=== PATIENT | female | born 1985 | race Caucasian/White ===

== ENCOUNTER 2017-08-03 22:12 | Emergency (ER) | payer SELFPAY ==
--- NOTE | 2017-08-03 23:29 | ER Document Report ---
ED General - General Chief Complaint: Psych Problem Stated Complaint: POSSIBLE SUBSTANCE ABUSE Time Seen by Provider: 08/03/17 22:30 Mode of Arrival: Ambulatory Information source: Patient Notes: This is a 31-year-old female with a history of opiate dependency and seizures ( on Keppra) who is brought in by EMS. Patient's mother called the police to the house because she "cannot handle her anymore". The patient does have a history of opiate dependency and states she was drinking alcohol. The police at the scene and called EMS and the patient had agreed to come to the ER for evaluation on a voluntary basis. In the emergency room, the patient is alert and answering questions. There is some alcohol on her breath. She absolutely denies any suicidal or homicidal ideations. She states that her mother's been sick and has a difficult time dealing with her and that she does have friends that she can stay with. But she states she has had no thoughts of wanting to hurt himself or anyone else. TRAVEL OUTSIDE OF THE [place] IN LAST 30 DAYS: No - HPI Onset: Just prior to arrival Onset/Duration: Sudden Quality of pain: No pain Severity: None Pain Level: Denies Associated symptoms: None Exacerbated by: Denies Relieved by: Denies Similar symptoms previously: No Recently seen / treated by doctor: No - Related Data Allergies/Adverse Reactions: Sulfa (Sulfonamide Antibiotics) Allergy (Verified 07/13/15 19:29) tramadol [Tramadol] Allergy (Verified 07/13/15 19:29) Seizures Past Medical History - General Information source: Patient - Social History Smoking Status: Current Every Day Smoker Cigarette use (# per day): Yes - 1 pack per day Chew tobacco use (# tins/day): No Frequency of alcohol use: Social Drug Abuse: Prescription drugs Lives with: Other - Does have a friend to live with Family History: Reviewed & Not Pertinent Patient has suicidal ideation: No Patient has homicidal ideation: No - Past Medical History Cardiac Medical History: Reports: None Pulmonary Medical History: Reports: None Neurological Medical History: Reports: Hx Seizures - But not epilepsy, only associated with withdrawal. Endocrine Medical History: Reports: None Renal/ Medical History: Reports: None Malignancy Medical History: Reports: None GI Medical History: Reports: None Musculoskeltal Medical History: Reports None Skin Medical History: Reports None Psychiatric Medical History: Reports: Hx Anxiety, Hx Attention Deficit Hyperactivity Disorder, Hx Bipolar Disorder, Hx Depression Past Surgical History: Reports: Hx Abdominal Surgery, Hx Orthopedic Surgery - Immunizations Hx Diphtheria, Pertussis, Tetanus Vaccination: No Review of Systems - Review of Systems Constitutional: denies: Chills, Fever EENT: No symptoms reported Cardiovascular: No symptoms reported Respiratory: No symptoms reported Gastrointestinal: No symptoms reported Genitourinary: No symptoms reported Female Genitourinary: No symptoms reported Musculoskeletal: No symptoms reported Skin: No symptoms reported Hematologic/Lymphatic: No symptoms reported Neurological/Psychological: See HPI Physical Exam - Vital signs Vitals: Temp Pulse Resp BP Pulse Ox 97.8 F 115 H 18 107/68 96 08/03/17 22:31 08/03/17 22:31 08/03/17 22:31 08/03/17 22:08/03/17 22:31 Notes: Physical exam: GENERAL: 31-year-old female, alert and oriented 3, no acute distress HEAD: Atraumatic, normocephalic. EYES: Pupils equal round and reactive to light, extraocular movements intact, sclera anicteric, conjunctiva are normal. ENT: TMs normal, nares patent, oropharynx clear without exudates. Moist mucous membranes. NECK: Normal range of motion, supple without obvious mass or JVD. LUNGS: Breath sounds clear to auscultation bilaterally and equal. No wheezes rales or rhonchi. HEART: Regular rate and rhythm without murmurs, rubs or gallops. ABDOMEN: Soft, normoactive bowel sounds. No tenderness to palpation. No guarding, no rebound. No masses appreciated. EXTREMITIES: Normal range of motion, no pitting or edema. No clubbing or cyanosis. NEUROLOGICAL: Cranial nerves II through XII grossly intact. Normal speech, moving all extremities. PSYCH: Denies homicidal or suicidal ideations. SKIN: Warm, Dry, normal turgor, no rashes or lesions noted. Course - Re-evaluation Re-evalutation: I have had a long discussion with the patient. She does not want to see a psychiatrist. She denies any homicidal suicidal ideations. She is alert and oriented 3 and has no delusions or hallucinations. The patient was brought in on a voluntary basis and there is no support for an involuntary commitment at this time. I have explained this to the patient. However, she does have alcohol on her breath and states that she took 1 Percocet, so I told her I could not let her leave her alone under the influence. Patient states she will have a friend pick her up. The nurse did speak to the mother who wanted the patient admitted to a psychiatric facility because "she can handle the patient anymore". It was explained to her that we do not have legal means to hold her against her will. 08/03/17 23:26 - Vital Signs Vital signs: Temp Pulse Resp BP Pulse Ox 97.8 F 115 H 18 107/68 96 08/03/17 22:31 08/03/17 22:31 08/03/17 22:31 08/03/17 22:31 08/03/17 22:31 Discharge - Discharge Clinical Impression: Mood disorder NOS Condition: Stable Disposition: HOME, SELF-CARE Additional Instructions: Thank you for choosing [facility] for your care. The examination and treatment you have received in the Emergency Department today has been rendered on an emergency basis only and is not intended to be a substitute for complete medical care. You should contact your follow-up physician as it is important that he or she examine you for any new or remaining problems. If given a copy of any lab tests or radiology reports, please bring them with you when you see your physician. If your problem worsens or new symptoms appear and you are unable to arrange prompt follow-up care, return to the Emergency Department. Specific signs to look out for: Any thoughts of wanting to hurt yourself or others, return to the ER. Any other instructions: Follow-up with your doctor. Continue the Keppra.
[2017-08-03 23:36] VITALS: BP 95/60
== END 2017-08-03 23:34 | disposition home or self-care (01) ==
LOC: EEVIPCON 22:12 → ER 22:12
DX: F39 Unspecified mood [affective] disorder (principal); Z79.899 Other long term (current) drug therapy; F10.20 Alcohol dependence, uncomplicated; F11.20 Opioid dependence, uncomplicated; F17.210 Nicotine dependence, cigarettes, uncomplicated
CPT/HCPCS: 99284

== ENCOUNTER 2017-08-05 20:10 | Emergency (ER) | payer SELFPAY ==
[2017-08-05 20:17] VITALS: BP 111/65
[2017-08-05] MEDS ORDERED: LIDOCAINE 2% VISCOUS SOLN 20 ML UDCUP PO ONE (20:28)
[2017-08-05] MEDS ORDERED: PENICILLIN V POTASSIUM 500 MG TABLET PO ONE (20:39)
[2017-08-05] MEDS ORDERED: ACETAMINOPHEN 325 MG TABLET PO ONE (20:39)
--- NOTE | 2017-08-05 20:45 | ER Document Report ---
ED Oral Problem - General Chief Complaint: Toothache Stated Complaint: TOOTHACHE Time Seen by Provider: 08/05/17 20:27 Mode of Arrival: Ambulatory Information source: Patient Notes: 31-year-old female presents to ED for complaint of dental pain 3 weeks. She is states she feels like there is an abscess on her right upper gums between teeth 5 and 6. TRAVEL OUTSIDE OF THE [place] IN LAST 30 DAYS: No - HPI Patient complains to provider of: Toothache Onset: Other - 3 Weeks Onset: Gradual Quality of pain: Pressure, Sharp Severity: Severe Pain Level: 5 Associated symptoms: Toothache, Other - Thumb pain Worsened by: Cold Relieved by: Nothing Similar symptoms previously: Yes Recently seen / treated by doctor/dentist: No - Related Data Allergies/Adverse Reactions: Sulfa (Sulfonamide Antibiotics) Allergy (Verified 07/13/15 19:29) tramadol [Tramadol] Allergy (Verified 07/13/15 19:29) Seizures Past Medical History - General Information source: Patient - Social History Smoking Status: Current Every Day Smoker Cigarette use (# per day): Yes - pack per day Chew tobacco use (# tins/day): No Smoking Education Provided: Yes - Less than 2 minutes Frequency of alcohol use: Occasional Drug Abuse: Prescription drugs - None in several weeks she states she is in a drug rehab program now Lives with: Family Family History: Arthritis, CAD, COPD, CVA, DM, Hyperlipidemia, Hypertension. denies: Malignancy, Thyroid Disfunction Patient has suicidal ideation: No Patient has homicidal ideation: No - Past Medical History Cardiac Medical History: Reports: None Pulmonary Medical History: Reports: None EENT Medical History: Reports: None Neurological Medical History: Reports: Hx Seizures - But not epilepsy, only associated with withdrawal. Endocrine Medical History: Reports: None Renal/ Medical History: Reports: None Malignancy Medical History: Reports: None GI Medical History: Reports: None Musculoskeltal Medical History: Reports None Skin Medical History: Reports None Psychiatric Medical History: Reports: Hx Anxiety, Hx Attention Deficit Hyperactivity Disorder, Hx Bipolar Disorder, Hx Depression, Other - Bulimia Traumatic Medical History: Reports: None Infectious Medical History: Reports: None Surgical Hx: Negative Past Surgical History: Reports: None - Immunizations Immunizations up to date: No Hx Diphtheria, Pertussis, Tetanus Vaccination: No Review of Systems - Review of Systems Constitutional: No symptoms reported EENT: No symptoms reported Cardiovascular: No symptoms reported Respiratory: No symptoms reported Gastrointestinal: No symptoms reported Genitourinary: No symptoms reported Female Genitourinary: No symptoms reported Musculoskeletal: No symptoms reported Skin: No symptoms reported Hematologic/Lymphatic: No symptoms reported Neurological/Psychological: No symptoms reported -: Yes All other systems reviewed and negative Physical Exam - Vital signs Vitals: Temp Pulse Resp BP Pulse Ox 98.6 F 103 H 18 111/65 100 08/05/17 20:08/05/17 20:08/05/17 20:14 08/05/17 20:08/05/17 20:14 Interpretation: Normal - General General appearance: Appears well, Alert - HEENT Head: Normocephalic, Atraumatic Eyes: Normal Pupils: PERRL Ears: Normal External canal: Normal Tympanic membrane: Normal Sinus: Normal Nasal: Normal Mouth/Lips: Caries Mucous membranes: Normal Teeth diagram: 1 - Most of the teeth are rotten and broken off. Has multiple dental cavities. States she has had chronic pain for a long time. Has a small red sore area between tooth 5 and 6. Pharynx: Normal Neck: Normal - Respiratory Respiratory status: No respiratory distress Chest status: Nontender Breath sounds: Normal Chest palpation: Normal - Cardiovascular Rhythm: Regular Heart sounds: Normal auscultation Murmur: No - Abdominal Inspection: Normal Distension: No distension Bowel sounds: Normal Tenderness: Nontender Organomegaly: No organomegaly - Back Back: Normal, Nontender - Extremities General upper extremity: Normal inspection, Nontender, Normal color, Normal ROM , Normal temperature General lower extremity: Normal inspection, Nontender, Normal color, Normal ROM , Normal temperature, Normal weight bearing. No: Danilo's sign - Neurological Neuro grossly intact: Yes Cognition: Normal Orientation: AAOx4 [place] Coma Scale Eye Opening: Spontaneous [place] Coma Scale Verbal: Oriented Justin Coma Scale Motor: Obeys Commands Justin Coma Scale Total: 15 Speech: Normal Motor strength normal: LUE, RUE, LLE, RLE Sensory: Normal - Psychological Associated symptoms: Normal affect, Normal mood - Skin Skin Temperature: Warm Skin Moisture: Dry Skin Color: Normal Course - Re-evaluation Re-evalutation: 08/05/17 21:09 Patient's mother requested a copy of the mental health resources as well as dentist in the area that she could try to get patient in to see as she does not have insurance. A copy of the mental health resources was provided to the mother. On her discharge instructions I gave her a list of the local dentist and they keep her dentist in the area. Patient was treated with Pen-Vee K Tylenol and viscous lidocaine for her dental pain. She was also instructed to follow-up with a local dentist as this was only a temporary measure. - Vital Signs Vital signs: Temp Pulse Resp BP Pulse Ox 98.6 F 103 H 18 111/65 100 08/05/17 20:14 08/05/17 20:14 08/05/17 20:14 08/05/17 20:14 08/05/17 20:14 Discharge - Discharge Clinical Impression: Pain due to dental caries Condition: Stable Disposition: HOME, SELF-CARE Additional Instructions: TOOTHACHE: Your pain is due to dental decay. The tooth must be repaired in order for you to feel better. You will, therefore, be referred to a dentist. We do not have dentists on the staff at [facility]. Severe swelling or drainage around a tooth usually means a dental abscess. This also requires evaluation and treatment by the dentist, but antibiotics may be prescribed while awaiting dental treatment. You should be rechecked immediately if you develop major swelling of the face, increasing pain, a lump in the jaw or gums, headache, difficulty swallowing, or fever. PENICILLIN V K: You have been given a prescription for Penicillin VK. Your physician has determined that this is the best antibiotic for your condition. Pen VK can be taken with meals, however more of the antibiotic gets into the bloodstream if it's taken on an empty stomach. Penicillin usually has no side effects. However, allergy to penicillins is common. If you have had an allergic reaction to any drug of the penicillin family, you should never take any other penicillin. Notify your doctor at once if you develop hives, itching, swelling, faintness, or shortness of breath. FOLLOW-UP CARE: You have been referred for follow-up care to the dentists listed below. Call the dentists office for an appointment as you were instructed or within the next two days. If you experience worsening or a significant change in your symptoms, notify the physician immediately or return to the Emergency Department at any time for re-evaluation. [facility] [address] [place], [place] Fred mornings, by appointment [facility] [address] [place] [address] [facility] [address] [facility] [address] [facility] [address] [facility] [place] [facility] [address] [email or web address] [address] [place] [address] ([phone] Thursday- 8:00am to 5:00 pm Will see patients from other [facility]. Charges based on income and family size and accepts Medicare, Medicaid, and Insurances Will pull molars [facility]ics [facility] [place] [address] Hours of Operation 8:00 am - 4:30 pm weekdays The following dental offices accept Medicaid: [facility] Dr. Lora Dr. Lewis Dr. Tran Dr. Montaño Jovan Lyons [place], and [facility] Dr. Licea ([place]) Dr. Centeno ([place]) [facility] Drs. Bess and Kane ([place]) Dr. Fisher ([place]) [facility] Dr. Fall ([place]) Drs. Michael and ([place]) Medicaid Care Line Prescriptions: Penicillin V Potassium [Penicillin Vk 500 mg Tablet] 500 mg PO BID #20 tablet Forms: Smoking Cessation Education
== END 2017-08-05 21:19 | disposition home or self-care (01) ==
LOC: ER 20:10
DX: K02.9 Dental caries, unspecified (principal); K08.89 Other specified disorders of teeth and supporting structures; G89.29 Other chronic pain; F17.210 Nicotine dependence, cigarettes, uncomplicated; Z71.6 Tobacco abuse counseling; Z88.2 Allergy status to sulfonamides; Z88.5 Allergy status to narcotic agent
CPT/HCPCS: 99282; J3490

== ENCOUNTER 2018-02-01 00:06 | Emergency (ER) | payer SELFPAY ==
[2018-02-01] MEDS ORDERED: NORMAL SALINE 1000 ML 1,000 ML IV ONE ×4 (00:15→11:16)
--- NOTE | 2018-02-01 01:02 | ER Document Report ---
ED General - General TRAVEL OUTSIDE OF THE [place].S[place] IN LAST 30 DAYS: No <RAPHAEL QUEEN - Last Filed: 02/01/18 05:01> <CURTIS HERRERA - Last Filed: 02/01/18 15:35> - General Chief Complaint: Probable Seizure Stated Complaint: POSSIBLE SEIZURE Time Seen by Provider: 02/01/18 00:10 Notes: Patient is a 32-year-old female who presents with complaint of possible seizure. Most history is obtained from the paramedics. Patient is awake and alert but she will not answer most my questions. When asked if she had any alcohol today she said yes. When asked if she took her Keppra she said yes. I asked her if she took any other drugs she refused to answer me. After asked a question she refused to answer any further questions. On exam when I asked her open her mouth she really clenches her teeth together and will refuses to open her mouth. When I asked her to open her eyes she closes her eyes and tries to hold together. The paramedics said that she recently had a pleural hearing where they decided to place her in a prole as opposed to serving a sentence. Patient's mother told paramedics that she was upset with this and does want to serve her time and not do parole. She was told that if she had a more instances with drugs or alcohol that she would feel pleural and therefore before [facility] time which apparently is what the patient wanted. The mother told paramedics that she suspects that she probably drank alcohol into drugs tonight which led her to have a seizure. No further history is obtainable at this time due to patient refusing to call cooperate and answer questions. (RAPHAEL QUEEN) Patient was reevaluated multiple times given IV fluid total of 3000 cc, alcohol levels gradually came down. She usually run a very low blood pressure without any symptoms she was ambulatory without any discomfort or complaint. Subsequently she was discharged home. (CURTIS HERRERA) - Related Data Allergies/Adverse Reactions: Sulfa (Sulfonamide Antibiotics) Allergy (Verified 07/13/15 19:29) tramadol [Tramadol] Allergy (Verified 07/13/15 19:29) Seizures Past Medical History - Social History Smoking Status: Unknown if Ever Smoked Frequency of alcohol use: Occasional Drug Abuse: Other - unknown Family History: Arthritis, CAD, COPD, CVA, DM, Hyperlipidemia, Hypertension. denies: Malignancy, Thyroid Disfunction Neurological Medical History: Reports: Hx Seizures - But not epilepsy, only associated with withdrawal. Renal/ Medical History: Denies: Hx Peritoneal Dialysis Psychiatric Medical History: Reports: Hx Anxiety, Hx Attention Deficit Hyperactivity Disorder, Hx Bipolar Disorder, Hx Depression Past Surgical History: Reports: Hx Abdominal Surgery, Hx Orthopedic Surgery - Immunizations Immunizations up to date: No Hx Diphtheria, Pertussis, Tetanus Vaccination: No <RAPHAEL QUEEN - Last Filed: 02/01/18 05:01> Review of Systems - Review of Systems -: Yes ROS unobtainable due to patient's medical condition - Patient is uncooperative <RAPHAEL QUEEN - Last Filed: 02/01/18 05:01> Physical Exam <RAPHAEL QUEEN - Last Filed: 02/01/18 05:01> <CURTIS HERRERA - Last Filed: 02/01/18 15:35> - Vital signs Vitals: Pulse Ox 100 02/01/18 00:13 - Notes Notes: General Appearance: Well nourished, somnolent but alert, uncooperative, no acute distress, no obvious discomfort. Vitals: reviewed, See vital signs table. Head: no swelling or tenderness to the head Eyes: PERRL, EOMI, Conjuctiva clear Mouth: No decreasd moisture Neck: No evidence of pain palpation over the neck. No step-offs or deformities. Lungs: No wheezing, No rales, No rhonci, No accessory muscle use, good air exchange bilaterally. Heart: Normal rate, Regular rythm, No murmur, no rub Abdomen: Normal BS, soft, No rigidity, No abdominal tenderness, No guarding, no rebound, no abdominal masses, no organomegaly Extremities: strength 5/5 in all extremities, good pulses in all extremities, no swelling or tenderness in the extremities, no edema. Skin: warm, dry, appropriate color, no rash Neuro: speech clear, patient will answer to my questions by saying yes. Some I am unable to check her orientation being that she will answer my questions. Cranial nerves II through XII are intact. Patient will roll back and forth in bed on her own but will not allow me to test personnel placement specialist strength or plantar dorsiflexion strength. (RAPHAEL QUEEN) Course - Laboratory Result Diagrams: 02/01/18 00:55 02/01/18 03:06 <RAPHAEL QUEEN - Last Filed: 02/01/18 05:01> - Laboratory Result Diagrams: 02/01/18 00:55 02/01/18 03:06 <CURTIS HERRERA - Last Filed: 02/01/18 15:35> - Re-evaluation Re-evalutation: 02/01/18 04:12 Patient's alcohol level did come back very elevated. This is consistent with her clinical presentation of being confused and altered. I went spoke to her again. She still answers questions just as yes. Still cannot tell me where she is at her was going on. She does have some what appear to be old scratches to her head and face. I will still scan her head being that I am still unable to get a very accurate history from her to determine that she did not have any recent trauma or injuries in relation to her alcohol intoxication. 02/01/18 05:01 She is blood pressure has been little bit low here in the ER. Think this is a combination of her being low at baseline and also being heavily intoxicated with alcohol. Avoid a second bolus of IV fluids. I do not think she requires pressors at this time. She has no signs of endorgan damage. I did review her most recent visit which was July of last year where her blood pressure was systolically in the 90s and diastolically in the 60s. (RAPHAEL QUEEN) - Vital Signs Vital signs: Temp Pulse Resp BP Pulse Ox 18 88/50 L 100 02/01/18 15:07 02/01/18 14:31 02/01/18 15:07 - Laboratory Laboratory results interpreted by me: 02/01/18 02/01/18 02/01/18 00:55 02:39 03:06 RDW 14.1 H Potassium 2.5 L* Chloride 91 L Carbon Dioxide 39 H BUN 25 H Calcium 8.3 L Magnesium Direct Bilirubin 0.5 H Urine Blood SMALL H Salicylates < 1.0 L Acetaminophen < 10 L Serum Alcohol 386 H* 02/01/18 03:06 RDW Potassium Chloride Carbon Dioxide BUN Calcium Magnesium 2.7 H Direct Bilirubin Urine Blood Salicylates Acetaminophen Serum Alcohol - EKG Interpretation by Me Additional EKG results interpreted by me: 02/01/18 01:21 EKG is reviewed and interpreted by me. EKG shows sinus rhythm with a rate of [address] segment elevation or depression. Old EKG for comparison is from July 13, 2015. (RAPHAEL QUEEN) Discharge <RAPHAEL QUEEN - Last Filed: 02/01/18 05:01> <CURTIS HERRERA - Last Filed: 02/01/18 15:35> - Discharge Clinical Impression: Acute alcohol intoxication Qualifiers: Complication of substance-induced condition: with delirium Qualified Code(s): F10.921 - Alcohol use, unspecified with intoxication delirium Condition: Fair Instructions: Acute Alcohol Intoxication ([facility]), Chronic Alcoholism ([facility])
[2018-02-01 01:07] LABS: ABSOLUTE BASOPHILS # (AUTO) 0.1 10^3/uL (0.0-0.2); ABSOLUTE EOSINOPHILS # (AUTO) 0.1 10^3/uL (0.0-0.6); ABSOLUTE LYMPHOCYTES (AUTO) 3.4 10^3/uL (0.5-4.7); ABSOLUTE MONOCYTES (AUTO) 0.5 10^3/uL (0.1-1.4); ABSOLUTE NEUT (AUTO) 4.6 10^3/uL (1.7-8.2); BASOPHILS % (AUTO) 0.9 % (0-2); HEMATOCRIT 42.8 % (36.0-47.0); HEMOGLOBIN 14.8 g/dL (12.0-15.5); LYMPHOCYTES % (AUTO) 39.3 % (13-45); MEAN CORPUSCULAR HEMOGLOBIN 29.7 pg (27.0-33.4); MEAN CORPUSCULAR HGB CONC 34.6 g/dL (32.0-36.0); MEAN CORPUSCULAR VOLUME 86 fl (80-97); MONOCYTES % (AUTO) 5.6 % (3-13); PLATELET COUNT 361 10^3/uL (150-450); RED CELL DISTRIBUTION WIDTH 14.1 % (11.5-14.0); SEGMENTED NEUTROPHILS % (AUTO) 53.2 % (42-78); TOTAL CELLS COUNTED % (AUTO) 100 %; WHITE BLOOD COUNT 8.7 10^3/uL (4.0-10.5)
[2018-02-01 03:28] LABS: URINE AMPHETAMINES SCREEN NEGATIVE; URINE BARBITURATES SCREEN NEGATIVE; URINE BENZODIAZEPINES SCREEN NEGATIVE; URINE COCAINE SCREEN NEGATIVE; URINE MARIJUANA (THC) SCREEN NEGATIVE; URINE METHADONE SCREEN NEGATIVE; URINE PHENCYCLIDINE SCREEN NEGATIVE
[2018-02-01 03:33] LABS: APPEARANCE,URINE CLEAR; BILIRUBIN,URINE NEGATIVE (NEGATIVE); COLOR,URINE YELLOW; GLUCOSE, URINE NEGATIVE (NEGATIVE); KETONES,URINE NEGATIVE (NEGATIVE); LEUKOCYTE ESTERASE,URINE NEGATIVE (NEGATIVE); NITRITE,URINE NEGATIVE (NEGATIVE); PROTEIN,URINE NEGATIVE (NEGATIVE); UROBILINOGEN,URINE NEGATIVE mg/dL (<2.0)
[2018-02-01 03:43] LABS: ALANINE AMINOTRANSFERASE 24 U/L (9-52); ALBUMIN 3.7 g/dL (3.5-5.0); ALKALINE PHOSPHATASE 59 U/L (38-126); ANION GAP 9 (5-19); ASPARTATE AMINO TRANSFERASE 28 U/L (14-36); BILIRUBIN,DIRECT 0.5 mg/dL (0.0-0.4); BILIRUBIN,TOTAL 0.5 mg/dL (0.2-1.3); BLOOD UREA NITROGEN 25 mg/dL (7-20); CALCIUM 8.3 mg/dL (8.4-10.2); CARBON DIOXIDE 39 mmol/L (22-30); CHLORIDE 91 mmol/L (98-107); GLUCOSE 88 mg/dL (75-110); SODIUM 139.4 mmol/L (137-145)
[2018-02-01 04:07] LABS: ACETAMINOPHEN < 10 ug/mL (10-30); SALICYLATE < 1.0 mg/dL (2.0-20.0)
[2018-02-01 04:11] LABS: POTASSIUM 2.5 mmol/L (3.6-5.0)
[2018-02-01 04:12] LABS: ALCOHOL 386 mg/dL (NONE DETECTED)
--- NOTE | 2018-02-01 04:34 | RADIOLOGY REPORT (SQ) ---
EXAM DESCRIPTION: CT HEAD WITHOUT CLINICAL HISTORY: altered mental status COMPARISON: None available TECHNIQUE: Axial CT of the head obtained from the skull apex to the skull base without contrast. FINDINGS: No acute intracranial hemorrhage identified. No mass, mass effect, shift of the midline, abnormal extra-axial fluid collection or CT evidence of acute ischemic change identified. The ventricular system is unremarkable. No acute abnormalities of the supratentorial white matter, basal ganglia, cerebellum, or brainstem. The visualized paranasal sinuses and the mastoids are clear. No skull fracture identified. Visualized orbits and globes are unremarkable. DLP:1033.75 mGy-cm IMPRESSION: 1. No acute intracranial abnormality identified. This exam was performed according to our departmental dose-optimization program, which includes automated exposure control, adjustment of the mA and/or kV according to patient size and/or use of iterative reconstruction technique.
[2018-02-01] MEDS: POTASSI CL 20 MEQ/50 ML RIDER 20 MEQ/50 ML RTUPB IV SCH ×2 (04:42→06:45)
--- NOTE | 2018-02-01 07:11 | EKG REPORT ---
SEVERITY:- BORDERLINE ECG - SINUS RHYTHM BORDERLINE PROLONGED QT INTERVAL NONSPECIFIC LATERAL ST-T CHANGES : Confirmed by: Ruslan Pritchett MD 01-Feb-2018 07:10:13
[2018-02-01] MEDS ORDERED: NALOXONE HCL INJ/PF 0.4 MG/1 ML SDV IV ONE (09:16)
[2018-02-01 15:41] VITALS: BP 81/53
== END 2018-02-01 15:42 | disposition home or self-care (01) ==
LOC: ER 00:06
DX: F10.921 Alcohol use, unspecified with intoxication delirium (principal); R56.9 Unspecified convulsions; I95.9 Hypotension, unspecified; Z79.899 Other long term (current) drug therapy
CPT/HCPCS: 93005; 99285; 96361; 51701; 96375; 96365; 96366; 36415; 82962; 80307 ×4; 83735; 84703; 85025; 80053; 81001; 70450; 93010; J2310; J3480; J7030

== ENCOUNTER 2018-11-05 09:49 | Emergency (ER) | payer SELFPAY ==
[~2018-11-05 09:49] MED LIST: NALOXONE HCL INJ 2 MG/2 ML DISP.SYRIN ONE
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
[2018-11-05 10:42] LABS: ABSOLUTE BASOPHILS # (AUTO) 0.1 10^3/uL (0.0-0.2); ABSOLUTE LYMPHOCYTES (AUTO) 2.8 10^3/uL (0.5-4.7); ABSOLUTE MONOCYTES (AUTO) 0.2 10^3/uL (0.1-1.4); ABSOLUTE NEUT (AUTO) 2.4 10^3/uL (1.7-8.2); BASOPHILS % (AUTO) 1.1 % (0-2); HEMATOCRIT 40.1 % (36.0-47.0); HEMOGLOBIN 14.2 g/dL (12.0-15.5); LYMPHOCYTES % (AUTO) 51.1 % (13-45); MEAN CORPUSCULAR HEMOGLOBIN 31.5 pg (27.0-33.4); MEAN CORPUSCULAR HGB CONC 35.5 g/dL (32.0-36.0); MEAN CORPUSCULAR VOLUME 89 fl (80-97); MONOCYTES % (AUTO) 2.8 % (3-13); PLATELET COUNT 344 10^3/uL (150-450); RED BLOOD COUNT 4.53 10^6/uL (3.72-5.28); RED CELL DISTRIBUTION WIDTH 13.1 % (11.5-14.0); TOTAL CELLS COUNTED % (AUTO) 100 %; WHITE BLOOD COUNT 5.4 10^3/uL (4.0-10.5)
[2018-11-05 10:59] LABS: ALANINE AMINOTRANSFERASE 12 U/L (9-52); ALBUMIN 3.7 g/dL (3.5-5.0); ALKALINE PHOSPHATASE 58 U/L (38-126); ANION GAP 14 (5-19); ASPARTATE AMINO TRANSFERASE 24 U/L (14-36); BILIRUBIN,DIRECT 0.2 mg/dL (0.0-0.4); BILIRUBIN,TOTAL 0.2 mg/dL (0.2-1.3); BLOOD UREA NITROGEN 18 mg/dL (7-20); CALCIUM 8.3 mg/dL (8.4-10.2); CARBON DIOXIDE 31 mmol/L (22-30); CHLORIDE 103 mmol/L (98-107); GLUCOSE 97 mg/dL (75-110); SODIUM 147.8 mmol/L (137-145); TOTAL PROTEIN 6.5 g/dL (6.3-8.2)
[2018-11-05 11:00] LABS: ACETAMINOPHEN < 10 ug/mL (10-30); SALICYLATE < 1.0 mg/dL (2.0-20.0)
[2018-11-05] MEDS ORDERED: POTASSI CL 20 MEQ/50 ML RIDER 20 MEQ/50 ML RTUPB IV ONE (11:03)
[2018-11-05 12:01] LABS: APPEARANCE,URINE SLIGHTLY-CLOUDY; BILIRUBIN,URINE NEGATIVE (NEGATIVE); COLOR,URINE YELLOW; GLUCOSE, URINE NEGATIVE (NEGATIVE); KETONES,URINE NEGATIVE (NEGATIVE); LEUKOCYTE ESTERASE,URINE NEGATIVE (NEGATIVE); NITRITE,URINE NEGATIVE (NEGATIVE); PROTEIN,URINE NEGATIVE (NEGATIVE); URINE SPECIFIC GRAVITY 1.008; UROBILINOGEN,URINE NEGATIVE mg/dL (<2.0)
[2018-11-05 12:13] LABS: URINE AMPHETAMINES SCREEN NEGATIVE; URINE BARBITURATES SCREEN NEGATIVE; URINE BENZODIAZEPINES SCREEN NEGATIVE; URINE COCAINE SCREEN NEGATIVE; URINE MARIJUANA (THC) SCREEN NEGATIVE; URINE METHADONE SCREEN NEGATIVE; URINE PHENCYCLIDINE SCREEN NEGATIVE
[2018-11-05 13:13] LABS: ALCOHOL 496 mg/dL (NONE DETECTED)
--- NOTE | 2018-11-05 14:54 | EKG REPORT ---
SEVERITY:- NORMAL ECG - SINUS RHYTHM : Confirmed by: Maria E Khanna 05-Nov-2018 14:53:46
[2018-11-05 19:05] VITALS: BP 104/68
== END 2018-11-05 19:06 | disposition home or self-care (01) ==
LOC: ER 09:49
DX: T50.901A Poisoning by unspecified drugs, medicaments and biological substances, accidental (unintentional), initial encounter (principal); X58.XXXA Exposure to other specified factors, initial encounter; F10.121 Alcohol abuse with intoxication delirium; Z88.6 Allergy status to analgesic agent; Z88.2 Allergy status to sulfonamides
CPT/HCPCS: 93005; 99291; 96365; 96366; 36415; 82962; 80307 ×4; 85025; 81025; 80053; 81001; 93010; J3480

== ENCOUNTER 2019-02-23 22:09 | Emergency (ER) | payer SELFPAY ==
[2019-02-23] MEDS ORDERED: ACETAMINOPHEN 325 MG TABLET PO ONE (23:12)
[2019-02-23] MEDS ORDERED: DIAZEPAM INJ 10 MG/2 ML DISP.SYRIN IV STA (23:48)
[2019-02-23] MEDS ORDERED: ONDANSETRON HCL INJ/PF 4 MG/2 ML SDV IV ONE (23:49)
[2019-02-23] MEDS ORDERED: LEVETIRACETAM 500 MG TABLET PO ONE (23:51)
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
[2019-02-24 00:33] LABS: ABSOLUTE BASOPHILS # (AUTO) 0.1 10^3/uL (0.0-0.2); ABSOLUTE LYMPHOCYTES (AUTO) 3.3 10^3/uL (0.5-4.7); ABSOLUTE MONOCYTES (AUTO) 0.7 10^3/uL (0.1-1.4); ABSOLUTE NEUT (AUTO) 8.3 10^3/uL (1.7-8.2); BASOPHILS % (AUTO) 0.7 % (0-2); EOSINOPHILS % (AUTO) 0.1 % (0-6); HEMOGLOBIN 12.9 g/dL (12.0-15.5); LYMPHOCYTES % (AUTO) 26.3 % (13-45); MEAN CORPUSCULAR HEMOGLOBIN 30.9 pg (27.0-33.4); MEAN CORPUSCULAR HGB CONC 34.9 g/dL (32.0-36.0); MEAN CORPUSCULAR VOLUME 89 fl (80-97); MONOCYTES % (AUTO) 5.9 % (3-13); PLATELET COUNT 408 10^3/uL (150-450); RED BLOOD COUNT 4.18 10^6/uL (3.72-5.28); RED CELL DISTRIBUTION WIDTH 13.2 % (11.5-14.0); TOTAL CELLS COUNTED % (AUTO) 100 %; WHITE BLOOD COUNT 12.4 10^3/uL (4.0-10.5)
[2019-02-24 01:02] LABS: URINE AMPHETAMINES SCREEN NEGATIVE; URINE BARBITURATES SCREEN NEGATIVE; URINE BENZODIAZEPINES SCREEN NEGATIVE; URINE COCAINE SCREEN UNCONFIRMED POSITIVE; URINE MARIJUANA (THC) SCREEN NEGATIVE; URINE METHADONE SCREEN NEGATIVE; URINE PHENCYCLIDINE SCREEN NEGATIVE
[2019-02-24 01:08] LABS: ALANINE AMINOTRANSFERASE 12 U/L (9-52); ALBUMIN 4.2 g/dL (3.5-5.0); ALCOHOL 188 mg/dL (NONE DETECTED); ALKALINE PHOSPHATASE 72 U/L (38-126); ANION GAP 15 (5-19); ASPARTATE AMINO TRANSFERASE 25 U/L (14-36); BILIRUBIN,DIRECT 0.3 mg/dL (0.0-0.4); BILIRUBIN,TOTAL 0.3 mg/dL (0.2-1.3); BLOOD UREA NITROGEN 5 mg/dL (7-20); CALCIUM 9.5 mg/dL (8.4-10.2); CARBON DIOXIDE 24 mmol/L (22-30); CHLORIDE 103 mmol/L (98-107); GLUCOSE 89 mg/dL (75-110); LIPASE 130.6 U/L (23-300); POTASSIUM 3.8 mmol/L (3.6-5.0); SODIUM 141.8 mmol/L (137-145)
[2019-02-24 01:10] LABS: ACETAMINOPHEN < 10 ug/mL (10-30); SALICYLATE < 1.0 mg/dL (2.0-20.0)
[2019-02-24 03:02] LABS: APPEARANCE,URINE CLEAR; BILIRUBIN,URINE NEGATIVE (NEGATIVE); COLOR,URINE STRAW; GLUCOSE, URINE NEGATIVE (NEGATIVE); KETONES,URINE NEGATIVE (NEGATIVE); LEUKOCYTE ESTERASE,URINE SMALL (NEGATIVE); NITRITE,URINE NEGATIVE (NEGATIVE); PROTEIN,URINE NEGATIVE (NEGATIVE); URINE SPECIFIC GRAVITY 1.003; UROBILINOGEN,URINE NEGATIVE mg/dL (<2.0)
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
[2019-02-24] MEDS ORDERED: LORAZEPAM 0.5 MG TABLET PO ONE (09:16)
--- NOTE | 2019-02-24 09:24 | ER Document Report ---
Doctor's Note Notes: 02/24/19 09:20 Patient seen and evaluated. She is calm and cooperative and able to hold a conversation. Patient is complaining of seeing usual hallucinations that she describes as arms on the broussard. She does report intermittent auditory hallucinations but they are not currently happening. She says sometimes she hears children, men and women speaking. She denies them telling her to hurt herself or anything in particular that she can tell me. She states that she is starting to feel "my nerves flareup". Patient is requesting to be re-sedated with Valium. I explained that after her last dose of Valium she slept for about 9 hours and that she needs to be awake today to talk to the counseling team. She does have a history of alcohol withdrawal and will be given 0.5 mg of Ativan to help prevent withdrawal seizures. She is currently hemodynamically stable with a heart rate of 90. She has no ophthalmoplegia or neurologic findings to suggest Wernicke-Korsakoff. Her hallucinations are consistent with hallucination she has had in the past from schizophrenia. 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 At this time patient has been conversing with staff and cooperative. She is medically c leared for further psychiatric evaluation.
--- NOTE | 2019-02-24 10:37 | PSYCHOLOGICAL NOTE ---
Addendum entered and electronically signed by CARLOS FLOOD LCSWA 02/24/19 11:44: Clinician received phone call from patient's mother. She is very upset that the patient has been discharged. She firmly believes the patient has only mental health concerns and states that she uses drugs to control the symptoms of her mental health. She continued to report that the patient's behavior is so bad that she has lost the home that they live in. She states that she is currently 4 hours away because she is ill. She disclosed that she feels very strongly that the patient needs to go inpatient and feels that the patient's evaluation was incorrect. Clinician attempted to psychoeducate on the concerns of the patient's significant substance abuse history in regards to mental health. She was unable or unwilling to engage in a plan of care discussion in regards to patient's significant substance abuse, only repeating "it is not substance abuse it is mental health." She discloses that the patient has had poor care in the past from this facility and that this is the second time she has been discharged without assistance. Clinician again attempted to discuss plan of care in regards to resources given in the importance of sobriety to correctly reevaluate patient's existing symptoms as a pertains specifically to mental health. Unfortunately, patient's mother was once again unwilling or unable to engage with clinician only wanting to discuss patient's poor treatment and being "kicked out because it is all a joke to you guys." She discloses that she feels a clinician made a "grave mistake" and would like to speak with clinician's boss. Clinician provided Dr. Silva's name and assisted her in being connected to hospital personnel to make a formal complaint. Original Note: <CARLOS FLOOD - Last Filed: 02/24/19 10:25> Psych Note - Psych Note Date seen by psych provider: 02/24/19 Time seen by psych provider: 07:20 - 1st attempt- eval 929 Psych Note: Reason for consultation: Hallucinations, odd behavior Patient reports that her mother brought her to [facility] because she was "having a crisis." She states that she was having alcohol withdrawal symptoms to include hallucinations. She states that she normally has hallucinations when she is going through withdrawal. Patient is asked what type of hallucinations she experiences she reports "all kinds of things, its different things I do not know how to explain it." When asked when the last time she experienced seeing or hearing anything that concerns her scares her she states "right now." Patient is asked what she is experiencing right now she discloses "I see arms on the broussard, objects, hear my name being said, people are talking about me but I do not see anyone." When asked to describe the arms on the broussard she reports that they are in black and white. For clarification patient asked if she was describing recent skin color or the actual colors of black and white. Patient confirms it is the color is black and white stating "I see things mostly black and white but sometimes they are in color." Patient states she has a diagnosis of bipolar severe depression however has been off medication for very long time. She was previously on Effexor and BuSpar. Patient is asked if she wants assistance with detox H which she reports yes then states "if I say I am interested in detox right now do I have to leave from here." When clinician explains process and that if a bed but does become available that would be the patient's choice to accept. Patient reports that she wants to talk to her family first, "I am not saying no, I does want to talk to my family first." Patient is alert and orientated to person, place, time and circumstance. Mood is currently euthymic with congruent affect. Patient denies suicidal and homicidal ideation. Patient reports auditory and visual hallucinations. Clinician notes patient is not demonstrating any behaviors of responding to internal stimuli i.e. patient maintains good eye contact, organized and linear thought process, and normal conversational rate, tone and prosody. Additionally patient' description is not congruent with known manifestations i.e. hallucinations and black and white. Delusions are absent. Intellectual abilities appear to be within the average range. Attention and concentration are good. Insight, judgment, impulse control are fair. No medication recommendations at this time Diagnosis: 291.9 (F10.99) Unspecified Alcohol Related Disorder 292.9 (F14.99) unspecified cocaine disorder 292.9 (F11.99) Unspecified Opioid Related Disorder per History 296.80 (F31.9) Unspecified Bipolar and Related Disorder by History 292.9 (F15.99) unspecified methamphetamine disorder per history Impression\\plan: Patient is recommended for rescind of IVC and is cleared from acute psychiatric services. Patient reports that she came into [facility] because she was having a crisis from alcohol withdrawal. She discloses that she was experiencing hallucinations which she states is normal when she is going through withdrawal. She disclosed that she is currently having both visual and auditory hallucinations. Clinician notes patient is not demonstrating any behaviors of responding to internal stimuli i.e. organized linear thought process, eye contact is well-maintained and conversational speech is within normal rate, tone and prosody. Since description of hallucinations is not congruent with known manifestations i.e. appearing and black and white. Patient reports she would like assistance in detox. Behavior health team attempted to locate an open bed however there is no availability at this time. Patient is provided resources to include mobile crisis contact information for continued assistance in obtaining detox. While patient is reporting being off medications for her mental health for a long time, it is highly encouraged the patient obtain and maintain sobriety to be reevaluated for accurate mental health symptoms. Dr. Silva was consulted and the care management of this patient; attending physicians in agreement with recommendations disposition. <MARJORIE SILVA - Last Filed: 03/01/19 10:48> Psych Note - Psych Note Psych Note: Spoke with Patient's mother on today's date for 30 minutes (2p-2:30p). Mother voiced her concern regarding patient's discharge and what she believed to be her ongoing crisis. Listened to mother's concerns, then spoke with her regarding the evaluation process and results, discussed the outpatient plan and the reason her daughter did not meet inpatient criteria. Also discussed with mother how her daughter did not appear to be experiencing psychosis and ways to understand when her daughter might be experiencing psychosis. Made a call to [facility] to ask if they had any female beds and they indicated they did. Spoke with mother about taking daughter to [facility] on a voluntary basis if she believed her daughter continued to require inpatient care. Also advised her that the staff at [facility] would do an assessment to see if she met their criteria for admiss ion. Advised mother her daughter may not meet criteria. Provided mother with mobile crisis information and let her know additional resources and crisis referrals were provided to her daughter upon discharge. Mother stated she was thankful for the phone call and the information. No further information at this time.
[2019-02-24 11:18] VITALS: BP 110/70
--- NOTE | 2019-02-24 15:33 | EKG REPORT ---
SEVERITY:- NORMAL ECG - SINUS RHYTHM : Confirmed by: Becca Estrada MD 24-Feb-2019 15:31:53
== END 2019-02-24 11:18 | disposition home or self-care (01) ==
LOC: ER 22:09
DX: R44.3 Hallucinations, unspecified (principal); T76.21XA Adult sexual abuse, suspected, initial encounter; F10.229 Alcohol dependence with intoxication, unspecified; F14.10 Cocaine abuse, uncomplicated; F17.200 Nicotine dependence, unspecified, uncomplicated; Z88.2 Allergy status to sulfonamides; Z88.6 Allergy status to analgesic agent; F11.99 Opioid use, unspecified with unspecified opioid-induced disorder; F31.9 Bipolar disorder, unspecified; F15.99 Other stimulant use, unspecified with unspecified stimulant-induced disorder
CPT/HCPCS: 93005; 99285; 96374; 96375; 36415; 80307 ×4; 83690; 84703; 85025; 80053; 81001; 93010; J3360; J2405

== ENCOUNTER 2019-03-21 11:28 | Inpatient (IN) | payer SELFPAY ==
--- NOTE | 2019-03-21 11:34 | ER Document Report ---
ED General - General Stated Complaint: ALTERD MENTAL STATUS Time Seen by Provider: 03/21/19 11:33 Notes: Patient is a 33-year-old female with history of alcoholism and drug abuse and seizure disorder that presents to the emergency department for chief complaint of altered mental status. Patient was apparently not feeling well yesterday, and was just checked on today by family, and was found to be rather altered, confused, so they brought her to the emergency department by EMS. She has been missing doses of her antiepileptic medications, she is on Keppra. She also has not had an alcoholic beverage in a few days, but she did finally admit to drinking almost a bottle of isopropyl alcohol, she states is been having shakes, and intermittent confusion. She thinks she may have had a seizure. Her family is at bedside, and states that she was sleeping all night long last night, and they found her with her arm above her head, and she is now complaining that she is having a hard time moving her left arm because it feels numb. Particularly in her hand. They are not aware that she hit her head on anything. She denies having any pain at this time, but feels she may be going through withdrawal. Past Medical History: Seizure disorder, alcoholism Past Surgical History: Not available at this time Social History: Daily alcohol use, smokes cigarettes, and history of illicit drug use as well. Family History: Reviewed and noncontributory for presenting illness Allergies: Reviewed, see documented allergy list. REVIEW OF SYSTEMS: Other than noted above, the 12 point review of systems was reviewed with the patient and were negative, all pertinent findings are included in the HPI. PHYSICAL EXAMINATION: Vital signs reviewed, nursing noted reviewed. GENERAL: Patient is altered, but does know her name, just appears confused. HEAD: Atraumatic, normocephalic. EYES: Eyes appear normal, extraocular movements intact, sclera anicteric, conjunctiva are normal. PERRLA, no nystagmus. ENT: nares patent, oropharynx clear without exudates. Moist mucous membranes. NECK: Normal range of motion, supple without lymphadenopathy, no signs of meningismus. LUNGS: Breath sounds clear to auscultation bilaterally and equal. No wheezes rales or rhonchi. HEART: Regular rate and rhythm without murmurs ABDOMEN: Soft, nontender, normoactive bowel sounds. No rebound, guarding, or rigidity. No masses appreciated. EXTREMITIES: Nontender, good range of motion, no pitting or edema. NEUROLOGICAL: Moves all extremities spontaneously, however the patient's fine motor in her left hand, is limited, with pincer grasp, and extension and flexion of the wrist. Patient has good range of motion at the shoulder, but has lack of control of her motor function on the distal portion of her left arm, from the shoulder itself. The patient's other extremities are unremarkable, with good strength, sensation is grossly intact distally in all extremities. PSYCH: Flat affect, somewhat bizarre. SKIN: Warm, Dry, normal turgor, TRAVEL OUTSIDE OF THE [place] IN LAST 30 DAYS: Yes - Related Data Allergies/Adverse Reactions: Sulfa (Sulfonamide Antibiotics) Allergy (Verified 07/13/15 19:29) tramadol [Tramadol] Allergy (Verified 07/13/15 19:29) Seizures Past Medical History - Social History Smoking Status: Current Every Day Smoker Family History: Arthritis, CAD, COPD, CVA, DM, Hyperlipidemia, Hypertension. denies: Malignancy, Thyroid Disfunction Neurological Medical History: Reports: Hx Seizures - But not epilepsy, only associated with withdrawal. Renal/ Medical History: Denies: Hx Peritoneal Dialysis Psychiatric Medical History: Reports: Hx Anxiety, Hx Attention Deficit Hyperactivity Disorder, Hx Bipolar Disorder, Hx Depression Past Surgical History: Reports: Hx Abdominal Surgery, Hx Orthopedic Surgery - Immunizations Immunizations up to date: No Hx Diphtheria, Pertussis, Tetanus Vaccination: No Physical Exam - Vital signs Vitals: Resp Pulse Ox 21 H 98 03/21/19 11:32 03/21/19 11:32 Course - Re-evaluation Re-evalutation: Patient seen and examined vital signs reviewed. Laboratory data and imaging were ordered as appropriate for the patient's presenting symptoms and complaint, with consideration of any critical or life threatening conditions that may be associated with their obtained history and exam as noted above. Patient was treated with 3 L of IV lactated Ringer's, given a dose of IV Keppra 1000 mg. Results were reviewed when available and demonstrated severe lactic acidosis with a lactate of 7.1, patient is noted to be metabolic acidosis with respiratory compensation based on her ABG, she had an acute kidney injury, with a creatinine of 1.5, baseline was 0.8, she had mild hypernatremia, all consistent with significant dehydration, patient did admit to drinking isopropyl alcohol, her ethanol level was negative as well as her urine drug screen. Isopr opyl alcohol typically does not cause metabolic acidosis and rather causes ketosis without acidosis. The patient denied taking any ethylene glycol, or methanol. Her father tested that it was rubbing alcohol that was missing from the house. Patient denies any other ingestions. I do suspect the patient had a breakthrough epileptic seizure versus an alcohol withdrawal seizure, she has not had ethanol in a few days, and she is having withdrawal symptoms of tachycardia, and tremors. Patient was therefore given a dose of IV Ativan 2 mg. Which did improve her heart rate. Her blood pressure had remained stable. CT of the head was performed given the patient's left brachial plexus palsy, to ensure no upper motor neuron lesion, and this was negative. Patient's neuro exam was consistent with a brachial plexus palsy given that the patient slept with her left arm above her head for approximately 12 hours according to family. I discussed with the patient that this may take up to a month to completely resolved. The patient was re-evaluated and was improving from a mental standpoint, but still tachycardic Evaluation was most consistent with seizure, likely alcohol withdrawal versus breakthrough epileptic seizure, severe metabolic acidosis, isopropyl alcohol ingestion, alcohol withdrawal Results were discussed with the patient at this point after careful consideration I feel that that patient should be admitted to the hospital. This was discussed with the patient that it is in the best interest for their care to be admitted for further evaluation and management. Patient agreed with this plan of care. A call was placed to the admitted physician, Joyce Feldman CNP who graciously accepted the patient onto their service. *Note is created using voice recognition software and may contain spelling, syntax or grammatical errors. Laboratory 03/21/19 03/21/19 03/21/19 11:36 11:36 11:36 WBC 22.3 H RBC 5.09 Hgb 15.0 Hct 44.7 MCV 88 MCH 29.6 MCHC 33.6 RDW 15.2 H Plt Count 472 H Total Counted 100 Seg Neutrophils % Not Reportable Seg Neuts % (Manual) 95 H Lymphocytes % Not Reportable Lymphocytes % (Manual) 4 L Monocytes % Not Reportable Monocytes % (Manual) 1 L Eosinophils % Not Reportable Eosinophils % (Manual) 0 Basophils % Not Reportable Basophils % (Manual) 0 Absolute Neutrophils Not Reportable Abs Neuts (Manual) 21.2 H Absolute Lymphocytes Not Reportable Abs Lymphs (Manual) 0.9 Absolute Monocytes Not Reportable Abs Monocytes (Manual) 0.2 Absolute Eosinophils Not Reportable Absolute Eos (Manual) 0.0 Absolute Basophils Not Reportable Abs Basophils (Manual) 0.0 Platelet Comment INCREASED Anisocytosis SLIGHT PT Cancelled INR Cancelled Carbonic Acid HCO3/H2CO3 Ratio ABG pH ABG pCO2 ABG pO2 ABG HCO3 ABG Total CO2 ABG O2 Saturation ABG Base Excess FiO2 Sodium 146.0 H Potassium 3.4 L Chloride 108 H Carbon Dioxide 16 L Anion Gap 22 H BUN 19 Creatinine 1.55 H Est GFR ( Amer) 47 L Est GFR (Non-Af Amer) 39 L Glucose 197 H Lactic Acid Calcium 9.1 Total Bilirubin 0.3 Direct Bilirubin 0.2 Neonat Total Bilirubin Not Reportable Neonat Direct Bilirubin Not Reportable Neonat Indirect Bili Not Reportable AST 111 H ALT 20 Alkaline Phosphatase 71 Ammonia Troponin I Total Protein 8.2 Albumin 4.4 TSH Free T4 Urine Color Urine Appearance Urine pH Ur Specific [place] Urine Protein Urine Glucose (UA) Urine Ketones Urine Blood Urine Nitrite Urine Bilirubin Urine Urobilinogen Ur Leukocyte Esterase Urine WBC (Auto) Urine RBC (Auto) U Hyaline Cast (Auto) Squamous Epi Cells Auto Urine Mucus (Auto) Urine Ascorbic Acid Urine HCG, Qual Urine Opiates Screen Urine Methadone Screen Ur Barbiturates Screen Ur Phencyclidine Scrn Ur Amphetamines Screen U Benzodiazepines Scrn Urine Cocaine Screen U Marijuana (THC) Screen Serum Alcohol 03/21/19 03/21/19 03/21/19 11:36 11:36 11:36 WBC RBC Hgb Hct MCV MCH MCHC RDW Plt Count Total Counted Seg Neutrophils % Seg Neuts % (Manual) Lymphocytes % Lymphocytes % (Manual) Monocytes % Monocytes % (Manual) Eosinophils % Eosinophils % (Manual) Basophils % Basophils % (Manual) Absolute Neutrophils Abs Neuts (Manual) Absolute Lymphocytes Abs Lymphs (Manual) Absolute Monocytes Abs Monocytes (Manual) Absolute Eosinophils Absolute Eos (Manual) Absolute Basophils Abs Basophils (Manual) Platelet Comment Anisocytosis PT INR Carbonic Acid HCO3/H2CO3 Ratio ABG pH ABG pCO2 ABG pO2 ABG HCO3 ABG Total CO2 ABG O2 Saturation ABG Base Excess FiO2 Sodium Potassium Chloride Carbon Dioxide Anion Gap BUN Creatinine Est GFR ( Amer) Est GFR (Non-Af Amer) Glucose Lactic Acid Calcium Total Bilirubin Direct Bilirubin Neonat Total Bilirubin Neonat Direct Bilirubin Neonat Indirect Bili AST ALT Alkaline Phosphatase Ammonia Troponin I < 0.012 Total Protein Albumin TSH 0.24 L Free T4 1.30 Urine Color Urine Appearance Urine pH Ur Specific [place] Urine Protein Urine Glucose (UA) Urine Ketones Urine Blood Urine Nitrite Urine Bilirubin Urine Urobilinogen Ur Leukocyte Esterase Urine WBC (Auto) Urine RBC (Auto) U Hyaline Cast (Auto) Squamous Epi Cells Auto Urine Mucus (Auto) Urine Ascorbic Acid Urine HCG, Qual Urine Opiates Screen Urine Methadone Screen Ur Barbiturates Screen Ur Phencyclidine Scrn Ur Amphetamines Screen U Benzodiazepines Scrn Urine Cocaine Screen U Marijuana (THC) Screen Serum Alcohol < 10 03/21/19 03/21/19 03/21/19 11:54 11:54 12:12 WBC RBC Hgb Hct MCV MCH MCHC RDW Plt Count Total Counted Seg Neutrophils % Seg Neuts % (Manual) Lymphocytes % Lymphocytes % (Manual) Monocytes % Monocytes % (Manual) Eosinophils % Eosinophils % (Manual) Basophils % Basophils % (Manual) Absolute Neutrophils Abs Neuts (Manual) Absolute Lymphocytes Abs Lymphs (Manual) Absolute Monocytes Abs Monocytes (Manual) Absolute Eosinophils Absolute Eos (Manual) Absolute Basophils Abs Basophils (Manual) Platelet Comment Anisocytosis PT 13.7 INR 1.00 Carbonic Acid HCO3/H2CO3 Ratio ABG pH ABG pCO2 ABG pO2 ABG HCO3 ABG Total CO2 ABG O2 Saturation ABG Base Excess FiO2 Sodium Potassium Chloride Carbon Dioxide Anion Gap BUN Creatinine Est GFR ( Amer) Est GFR (Non-Af Amer) Glucose Lactic Acid 7.1 H Calcium Total Bilirubin Direct Bilirubin Neonat Total Bilirubin Neonat Direct Bilirubin Neonat Indirect Bili AST ALT Alkaline Phosphatase Ammonia < 8.7 L Troponin I Total Protein Albumin TSH Free T4 Urine Color Urine Appearance Urine pH Ur Specific [place] Urine Protein Urine Glucose (UA) Urine Ketones Urine Blood Urine Nitrite Urine Bilirubin Urine Urobilinogen Ur Leukocyte Esterase Urine WBC (Auto) Urine RBC (Auto) U Hyaline Cast (Auto) Squamous Epi Cells Auto Urine Mucus (Auto) Urine Ascorbic Acid Urine HCG, Qual Urine Opiates Screen Urine Methadone Screen Ur Barbiturates Screen Ur Phencyclidine Scrn Ur Amphetamines Screen U Benzodiazepines Scrn Urine Cocaine Screen U Marijuana (THC) Screen Serum Alcohol 03/21/19 03/21/19 03/21/19 12:21 12:21 12:21 WBC RBC Hgb Hct MCV MCH MCHC RDW Plt Count Total Counted Seg Neutrophils % Seg Neuts % (Manual) Lymphocytes % Lymphocytes % (Manual) Monocytes % Monocytes % (Manual) Eosinophils % Eosinophils % (Manual) Basophils % Basophils % (Manual) Absolute Neutrophils Abs Neuts (Manual) Absolute Lymphocytes Abs Lymphs (Manual) Absolute Monocytes Abs Monocytes (Manual) Absolute Eosinophils Absolute Eos (Manual) Absolute Basophils Abs Basophils (Manual) Platelet Comment Anisocytosis PT INR Carbonic Acid HCO3/H2CO3 Ratio ABG pH ABG pCO2 ABG pO2 ABG HCO3 ABG Total CO2 ABG O2 Saturation ABG Base Excess FiO2 Sodium Potassium Chloride Carbon Dioxide Anion Gap BUN Creatinine Est GFR ( Amer) Est GFR (Non-Af Amer) Glucose Lactic Acid Calcium Total Bilirubin Direct Bilirubin Neonat Total Bilirubin Neonat Direct Bilirubin Neonat Indirect Bili AST ALT Alkaline Phosphatase Ammonia Troponin I Total Protein Albumin TSH Free T4 Urine Color YELLOW Urine Appearance CLOUDY Urine pH 5.0 Ur Specific [place] 1.018 Urine Protein 100 H Urine Glucose (UA) NEGATIVE Urine Ketones 20 H Urine Blood LARGE H Urine Nitrite NEGATIVE Urine Bilirubin NEGATIVE Urine Urobilinogen NEGATIVE Ur Leukocyte Esterase NEGATIVE Urine WBC (Auto) 13 Urine RBC (Auto) 2 U Hyaline Cast (Auto) 32 Squamous Epi Cells Auto 8 Urine Mucus (Auto) FEW Urine Ascorbic Acid NEGATIVE Urine HCG, Qual NEGATIVE Urine Opiates Screen NEGATIVE Urine Methadone Screen NEGATIVE Ur Barbiturates Screen NEGATIVE Ur Phencyclidine Scrn NEGATIVE Ur Amphetamines Screen NEGATIVE U Benzodiazepines Scrn NEGATIVE Urine Cocaine Screen NEGATIVE U Marijuana (THC) Screen NEGATIVE Serum Alcohol 03/21/19 03/21/19 12:30 14:39 WBC RBC Hgb Hct MCV MCH MCHC RDW Plt Count Total Counted Seg Neutrophils % Seg Neuts % (Manual) Lymphocytes % Lymphocytes % (Manual) Monocytes % Monocytes % (Manual) Eosinophils % Eosinophils % (Manual) Basophils % Basophils % (Manual) Absolute Neutrophils Abs Neuts (Manual) Absolute Lymphocytes Abs Lymphs (Manual) Absolute Monocytes Abs Monocytes (Manual) Absolute Eosinophils Absolute Eos (Manual) Absolute Basophils Abs Basophils (Manual) Platelet Comment Anisocytosis PT INR Carbonic Acid 0.85 L HCO3/H2CO3 Ratio 20:1 ABG pH 7.41 ABG pCO2 28.4 L ABG pO2 115.5 H ABG HCO3 17.6 L ABG Total CO2 18.5 L ABG O2 Saturation 98.3 H ABG Base Excess -5.5 FiO2 ROOM AIR Sodium Potassium Chloride Carbon Dioxide Anion Gap BUN Creatinine Est GFR ( Amer) Est GFR (Non-Af Amer) Glucose Lactic Acid 3.1 H Calcium Total Bilirubin Direct Bilirubin Neonat Total Bilirubin Neonat Direct Bilirubin Neonat Indirect Bili AST ALT Alkaline Phosphatase Ammonia Troponin I Total Protein Albumin TSH Free T4 Urine Color Urine Appearance Urine pH Ur Specific [place] Urine Protein Urine Glucose (UA) Urine Ketones Urine Blood Urine Nitrite Urine Bilirubin Urine Urobilinogen Ur Leukocyte Esterase Urine WBC (Auto) Urine RBC (Auto) U Hyaline Cast (Auto) Squamous Epi Cells Auto Urine Mucus (Auto) Urine Ascorbic Acid Urine HCG, Qual Urine Opiates Screen Urine Methadone Screen Ur Barbiturates Screen Ur Phencyclidine Scrn Ur Amphetamines Screen U Benzodiazepines Scrn Urine Cocaine Screen U Marijuana (THC) Screen Serum Alcohol Chest X-Ray 03/21/19 11:34 IMPRESSION: NO ACUTE RADIOGRAPHIC FINDING IN THE CHEST. Head CT 03/21/19 13:15 IMPRESSION: NO ACUTE INTRACRANIAL IMAGING FINDINGS. EVIDENCE OF ACUTE STROKE: NO. - Vital Signs Vital signs: Temp Pulse Resp BP Pulse Ox 97.6 F 17 114/92 H 100 03/21/19 11:58 03/21/19 15:00 03/21/19 13:01 03/21/19 15:00 - Laboratory Result Diagrams: 03/21/19 11:36 03/21/19 11:36 Laboratory results interpreted by me: 03/21/19 03/21/19 03/21/19 11:36 11:36 11:36 WBC 22.3 H RDW 15.2 H Plt Count 472 H Seg Neuts % (Manual) 95 H Lymphocytes % (Manual) 4 L Monocytes % (Manual) 1 L Abs Neuts (Manual) 21.2 H Carbonic Acid ABG pCO2 ABG pO2 ABG HCO3 ABG Total CO2 ABG O2 Saturation Sodium 146.0 H Potassium 3.4 L Chloride 108 H Carbon Dioxide 16 L Anion Gap 22 H Creatinine 1.55 H Est GFR ( Amer) 47 L Est GFR (Non-Af Amer) 39 L Glucose 197 H Lactic Acid AST 111 H Ammonia TSH 0.24 L Urine Protein Urine Ketones Urine Blood 03/21/19 03/21/19 03/21/19 11:54 11:54 12:21 WBC RDW Plt Count Seg Neuts % (Manual) Lymphocytes % (Manual) Monocytes % (Manual) Abs Neuts (Manual) Carbonic Acid ABG pCO2 ABG pO2 ABG HCO3 ABG Total CO2 ABG O2 Saturation Sodium Potassium Chloride Carbon Dioxide Anion Gap Creatinine Est GFR ( Amer) Est GFR (Non-Af Amer) Glucose Lactic Acid 7.1 H AST Ammonia < 8.7 L TSH Urine Protein 100 H Urine Ketones 20 H Urine Blood LARGE H 03/21/19 03/21/19 12:30 14:39 WBC RDW Plt Count Seg Neuts % (Manual) Lymphocytes % (Manual) Monocytes % (Manual) Abs Neuts (Manual) Carbonic Acid 0.85 L ABG pCO2 28.4 L ABG pO2 115.5 H ABG HCO3 17.6 L ABG Total CO2 18.5 L ABG O2 Saturation 98.3 H Sodium Potassium Chloride Carbon Dioxide Anion Gap Creatinine Est GFR ( Amer) Est GFR (Non-Af Amer) Glucose Lactic Acid 3.1 H AST Ammonia TSH Urine Protein Urine Ketones Urine Blood - EKG Interpretation by Me Additional EKG results interpreted by me: EKG demonstrates sinus tachycardia with a ventricular rate of 154 bpm, normal axis, normal intervals, no ST elevation. Critical Care Note - Critical Care Note Total time excluding time spent on procedures (mins): 45 Comments: Critical care time 45 minutes exclusive from separate billable procedures for a patient requiring complex medical decision making, and high potential for clinical deterioration. In a patient with alcohol withdrawal, severe metabolic acidosis requiring resuscitation. Time spent obtaining history from patient or surrogate, discussions with consultants, development of treatment plan with patient or surrogate, evaluation of patient's response to treatment, examination of patient, ordering and performing treatments and interventions, ordering and review of laboratory studies, re-evaluation of patient's condition, ordering and review of radiographic studies and review of old charts Discharge - Discharge Clinical Impression: Seizure, Brachial plexus palsy, Acute metabolic encephalopathy, Lactic acidosis Alcohol withdrawal Qualifiers: Complication of substance-induced condition: with unspecified complication Qualified Code(s): F10.239 - Alcohol dependence with withdrawal, unspecified Accidental poisoning by isopropyl alcohol Qualifiers: Encounter type: initial encounter Qualified Code(s): T51.2X1A - Toxic effect of 2-Propanol, accidental (unintentional), initial encounter Condition: Stable Disposition: ADMITTED INPATIENT Admitting Provider: [facility] Unit Admitted: [facility]
[2019-03-21 11:56] LABS: HEMATOCRIT 44.7 % (36.0-47.0); MEAN CORPUSCULAR HEMOGLOBIN 29.6 pg (27.0-33.4); MEAN CORPUSCULAR HGB CONC 33.6 g/dL (32.0-36.0); MEAN CORPUSCULAR VOLUME 88 fl (80-97); PLATELET COUNT 472 10^3/uL (150-450); RED BLOOD COUNT 5.09 10^6/uL (3.72-5.28); RED CELL DISTRIBUTION WIDTH 15.2 % (11.5-14.0); WHITE BLOOD COUNT 22.3 10^3/uL (4.0-10.5)
[2019-03-21] MEDS: RINGERS SOLUTION,LACTATED 1,000 ML IV PRN ×2 (12:01→12:02)
--- NOTE | 2019-03-21 12:05 | RADIOLOGY REPORT (SQ) ---
EXAM DESCRIPTION: CHEST SINGLE VIEW COMPLETED DATE/TIME: 03/21/2019 11:58 am REASON FOR STUDY: altered mental status COMPARISON: None. EXAM PARAMETERS: NUMBER OF VIEWS: One view. TECHNIQUE: Single frontal radiographic view of the chest acquired. RADIATION DOSE: NA LIMITATIONS: None. FINDINGS: LUNGS AND PLEURA: No opacities, masses or pneumothorax. No pleural effusion. MEDIASTINUM AND HILAR STRUCTURES: No masses. Contour normal. HEART AND VASCULAR STRUCTURES: Heart normal in size. Normal vasculature. BONES: No acute findings. HARDWARE: None in the chest. OTHER: No other significant finding. IMPRESSION: NO ACUTE RADIOGRAPHIC FINDING IN THE CHEST. TECHNICAL DOCUMENTATION: JOB ID: [id number] [employer]- All Rights Reserved Reading location - IP/workstation name: [email or web address]
[2019-03-21 12:15] LABS: ALANINE AMINOTRANSFERASE 20 U/L (9-52); ALBUMIN 4.4 g/dL (3.5-5.0); ALKALINE PHOSPHATASE 71 U/L (38-126); ASPARTATE AMINO TRANSFERASE 111 U/L (14-36); BILIRUBIN,DIRECT 0.2 mg/dL (0.0-0.4); BILIRUBIN,TOTAL 0.3 mg/dL (0.2-1.3); BLOOD UREA NITROGEN 19 mg/dL (7-20); CALCIUM 9.1 mg/dL (8.4-10.2); GLUCOSE 197 mg/dL (75-110); POTASSIUM 3.4 mmol/L (3.6-5.0); TOTAL PROTEIN 8.2 g/dL (6.3-8.2)
[2019-03-21 12:21] LABS: CARBON DIOXIDE 16 mmol/L (22-30); CHLORIDE 108 mmol/L (98-107)
[2019-03-21 12:22] LABS: ANION GAP 22 (5-19)
[2019-03-21 12:26] LABS: ABSOLUTE LYMPHOCYTES# (MANUAL) 0.9 10^3/uL (0.5-4.7); ABSOLUTE MONOCYTES # (MANUAL) 0.2 10^3/uL (0.1-1.4); ABSOLUTE NEUTROPHILS# (MANUAL) 21.2 10^3/uL (1.7-8.2); BASOPHILS % (MANUAL) 0 % (0-2); EOSINOPHILS % (MANUAL) 0 % (0-6); LYMPHOCYTES % (MANUAL) 4 % (13-45); MONOCYTES % (MANUAL) 1 % (3-13); SEGMENTED NEUTROPHILS % (MAN) 95 % (42-78); TOTAL CELLS COUNTED 100
[2019-03-21 12:27] LABS: ANISOCYTOSIS SLIGHT; PLATELET COMMENT INCREASED
[2019-03-21 12:29] LABS: FREE T4 (FREE THYROXINE) 1.3 ng/dL (0.78-2.19)
[2019-03-21 12:31] LABS: PROTHROMBIN TIME 13.7 SEC (11.4-15.4)
[2019-03-21] MEDS ORDERED: RINGERS SOLUTION,LACTATED 1,000 ML IV ONE (12:33)
[2019-03-21 12:42] LABS: APPEARANCE,URINE CLOUDY; BILIRUBIN,URINE NEGATIVE (NEGATIVE); COLOR,URINE YELLOW; GLUCOSE, URINE NEGATIVE (NEGATIVE); KETONES,URINE 20 mg/dL (NEGATIVE); LEUKOCYTE ESTERASE,URINE NEGATIVE (NEGATIVE); NITRITE,URINE NEGATIVE (NEGATIVE); PROTEIN,URINE 100 mg/dL (NEGATIVE); URINE SPECIFIC GRAVITY 1.018; UROBILINOGEN,URINE NEGATIVE mg/dL (<2.0)
[2019-03-21 12:43] LABS: THYROID STIMULATING HORMONE 0.24 uIU/mL (0.47-4.68)
[2019-03-21 12:49] LABS: ARTERIAL BLOOD BASE EXCESS -5.5 mmol/L; ARTERIAL BLOOD H2CO3 0.85 mmol/L (1.05-1.35); ARTERIAL BLOOD HCO3 17.6 mmol/L (20-24); ARTERIAL BLOOD O2 SATURATION 98.3 % (94-98); ARTERIAL BLOOD PCO2 28.4 mmHg (35-45); ARTERIAL BLOOD PH 7.41 (7.35-7.45); ARTERIAL BLOOD PO2 115.5 mmHg (80-100); ARTERIAL BLOOD TOTAL CO2 18.5 mmol/L (21-25)
[2019-03-21 12:52] LABS: ARTERIAL BLOOD FIO2 ROOM AIR
[2019-03-21 12:55] LABS: URINE AMPHETAMINES SCREEN NEGATIVE; URINE BARBITURATES SCREEN NEGATIVE; URINE BENZODIAZEPINES SCREEN NEGATIVE; URINE COCAINE SCREEN NEGATIVE; URINE MARIJUANA (THC) SCREEN NEGATIVE; URINE METHADONE SCREEN NEGATIVE; URINE PHENCYCLIDINE SCREEN NEGATIVE
--- NOTE | 2019-03-21 12:58 | EKG REPORT ---
SEVERITY:- ABNORMAL ECG - SUPRAVENTRICULAR TACHYCARDIA : Confirmed by: Ruslan Pritchett MD 21-Mar-2019 12:57:39
[2019-03-21] MEDS ORDERED: LEVETIRACETAM 1000 MG/NACL-ISO 1,000 MG/100 ML RTUPB IV ONE (13:15)
--- NOTE | 2019-03-21 14:08 | RADIOLOGY REPORT (SQ) ---
EXAM DESCRIPTION: CT HEAD WITHOUT COMPLETED DATE/TIME: 03/21/2019 1:58 pm REASON FOR STUDY: altered mental status, left arm weakness COMPARISON: 02/01/2018 TECHNIQUE: Axial images acquired through the brain without intravenous contrast. Images reviewed wi th bone, brain and subdural windows. Additional sagittal and coronal reconstructions were generated. Images stored on PACS. All CT scanners at this facility use dose modulation, iterative reconstruction, and/or weight based d osing when appropriate to reduce radiation dose to as low as reasonably achievable (ALARA). [facility]: Dose Right [facility]: CareDose [facility]: Dose Right [facility]: Teradose 4D [facility]: [employer] RADIATION DOSE: CT Rad equipment meets quality standard of care and radiation dose reduction techniq ues were employed. CTDIvol: 23.9 mGy. DLP: 964 mGy-cm. mGy. LIMITATIONS: Motion artifact FINDINGS: VENTRICLES: Normal size and contour. CEREBRUM: No masses. No hemorrhage. No midline shift. No evidence for acute infarction. Normal gra y/white matter differentiation. No areas of low density in the white matter. CEREBELLUM: No masses. No hemorrhage. No alteration of density. No evidence for acute infarction. EXTRAAXIAL SPACES: No fluid collections. No masses. ORBITS AND GLOBE: No intra- or extraconal masses. Normal contour of globe without masses. CALVARIUM: No fracture. PARANASAL SINUSES: No fluid or mucosal thickening. SOFT TISSUES: No mass or hematoma. OTHER: No other significant finding. IMPRESSION: NO ACUTE INTRACRANIAL IMAGING FINDINGS. EVIDENCE OF ACUTE STROKE: NO. COMMENT: Quality ID # [id number]: Final reports with documentation of one or more dose reduction techniques (e.g., Automated exposure control, adjustment of the mA and/or kV according to patient size, use of iterative reconstruction technique) TECHNICAL DOCUMENTATION: JOB ID: [id number] [employer]- All Rights Reserved Reading location - IP/workstation name: [email or web address]
[2019-03-21] MEDS ORDERED: LORAZEPAM INJ 2 MG/1 ML VIAL IV ONE (15:06)
[2019-03-21] MEDS ORDERED: DEXTROSE 40% GEL 15 GM TUBE PO PRN ×2 (16:12)
[2019-03-21] MEDS ORDERED: DEXTROSE 50%-WATER 25 GM/50 ML DISP.SYRIN IV PRN ×2 (16:12)
[2019-03-21] MEDS ORDERED: ACETAMINOPHEN 650 MG SUPP.RECT PR PRN (16:12)
[2019-03-21] MEDS ORDERED: GLUCAGON,HUMAN RECOMB 1 MG INJ SUBCUT PRN (16:12)
[2019-03-21] MEDS ORDERED: NORMAL SALINE 1000 ML 1,000 ML IV ONE (16:18)
--- NOTE | 2019-03-21 17:49 | PDOC H&P ---
History of Present Illness Admission Date/PCP: 03/21/19 15:53 Patient complains of: AMS History of Present Illness: WILLIAM DORAN is a 33 year old female with a PMH of depression, epilepsy and ETOH abuse. According to boyfriend, he left in alone in the house after an argument. He reports he entered the home later in the evening and she was asleep in the bed with her arm extended up above her head. Boyfriend states the patient slept in the position all night. He was unable to arouse her this morning, which prompted him to call EMS. Upon arrival to [facility] ED, patient's HR 156, BP 119/42 SPO2 98% on room air, T 97.4, RR 30. The boyfriend reports there was a missing isopropyl alcohol bottle from the house, and the patient has a history of isopropyl alcohol ingestion. She was admitted to [facility] a few weeks ago for AMS brought on by isopropyl alcohol ingestion. Additionally, the patient has a known history of epilepsy but she is not compliant with her antiseizure medication. Laboratory studies indicative of leukocytosis (WBC 22), elevated lactate (7.1), ALCIRA (creatinine 1.5, baseline<1.0), metabolic acidosis (serum bicarb 16). Patient was treated with 3 L IVF bolus, 1000 mg Keppra IV, 2 mg Ativan IV. EKG reveals SVT, HR 154. No evidence of ischemia or infarction. Head CT is normal. Upon assessment, the patient is resting comfortably in bed on room air. She is very difficult to arouse even to tactile stimulation. Her respirations are equal and unlabored, rate of 20. The patient appears to be protecting her own airway. Lungs are clear to auscultation. The patient is unwilling to fully open her mouth, but there are no bite bear visualized on the tongue. SPO2 94% on room air. PERRLA. (+) corneal reflex. Lungs are clear to auscultation. S1- S2. Palpable pulses in upper and lower extremities. No evidence of peripheral edema. There is marked weakness to the LUE, strength 1/5. Plan to admit to hospitalist service for AMS, isopropyl ingestion, alcohol withdrawal. Past Medical History Neurological Medical History: Reports: Seizures - non-compliant with antiepileptic medication Psychiatric Medical History: Reports: Attention Deficit Hyperactivity Disorder, Bipolar Disorder, Depression Past Surgical History Past Surgical History: Reports: Orthopedic Surgery Social History Information Source: Friend Lives with: Spouse/Significant other Smoking Status: Current Every Day Smoker Frequency of Alcohol Use: Heavy Hx Recreational Drug Use: Yes Drugs: Cocaine - Remotely, Heroin - 06/03/2015, Marijuana - 06/03/2015, Other - Methamphetamines remotely, OxyContin 06/03/2015 Hx Prescription Drug Abuse: Yes - Advance Directive Resuscitation Status: Full Code Family History Family History: Arthritis, CAD, COPD, CVA, DM, Hyperlipidemia, Hypertension. denies: Malignancy, Thyroid Disfunction Parental Family History Reviewed: No Children Family History Reviewed: No Sibling(s) Family History Reviewed.: No Medication/Allergy Home Medications: Buprenorphine HCl [Subutex 8 mg Sublingual Tablet] 1 tab SL DAILY 07/13/15 Levetiracetam [Keppra 500 mg Tablet] 500 mg PO Q12 #60 tablet 07/14/15 Venlafaxine HCl [Effexor] 37.5 mg PO Q12H PRN #60 tablet 07/14/15 Penicillin V Potassium [Penicillin Vk 500 mg Tablet] 500 mg PO BID #20 tablet 08/05/17 Allergies/Adverse Reactions: Sulfa (Sulfonamide Antibiotics) Allergy (Verified 07/13/15 19:29) tramadol [Tramadol] Allergy (Verified 07/13/15 19:29) Seizures Review of Systems ROS unobtainable: Due to mental status Physical Exam Vital Signs: Temp Pulse Resp BP Pulse Ox 97.6 F 23 H 109/78 98 03/21/19 11:58 03/21/19 16:01 03/21/19 16:01 03/21/19 16:01 Intake & Output 03/20/19 03/21/19 03/22/19 06:59 06:59 06:59 Intake Total 3100 Balance 3100 Weight 53.4 kg General appearance: PRESENT: well-developed, well-nourished Eye exam: PRESENT: conjunctiva pink, PERRLA Mouth exam: PRESENT: moist, tongue midline Teeth exam: PRESENT: poor dentation Neck exam: PRESENT: full ROM Respiratory exam: PRESENT: clear to auscultation ricky, symmetrical, unlabored Cardiovascular exam: PRESENT: RRR, tachycardia Pulses: PRESENT: normal radial pulses, normal dorsalis pedis pul Vascular exam: PRESENT: normal capillary refill GI/Abdominal exam: PRESENT: normal bowel sounds, soft. ABSENT: distended, tenderness Rectal exam: PRESENT: deferred Extremities exam: PRESENT: full ROM. ABSENT: pedal edema Musculoskeletal exam: PRESENT: ambulatory, full ROM, normal inspection Neurological exam: PRESENT: other - unarousable but protecting airway. ABSENT: alert, awake, oriented to person, oriented to place, oriented to time, oriented to situation Psychiatric exam: PRESENT: appropriate affect Skin exam: PRESENT: dry, intact, normal color Results Laboratory Results: 03/21/19 11:36 03/21/19 11:36 03/21/19 03/21/19 03/21/19 11:36 11:36 11:36 WBC 22.3 H RBC 5.09 Hgb 15.0 Hct 44.7 MCV 88 MCH 29.6 MCHC 33.6 RDW 15.2 H Plt Count 472 H Seg Neutrophils % Not Reportable Lymphocytes % Not Reportable Monocytes % Not Reportable Eosinophils % Not Reportable Basophils % Not Reportable Absolute Neutrophils Not Reportable Absolute Lymphocytes Not Reportable Absolute Monocytes Not Reportable Absolute Eosinophils Not Reportable Absolute Basophils Not Reportable Carbonic Acid HCO3/H2CO3 Ratio ABG pH ABG pCO2 ABG pO2 ABG HCO3 ABG O2 Saturation ABG Base Excess FiO2 Sodium 146.0 H Potassium 3.4 L Chloride 108 H Carbon Dioxide 16 L Anion Gap 22 H BUN 19 Creatinine 1.55 H Est GFR ( Amer) 47 L Est GFR (Non-Af Amer) 39 L Glucose 197 H Lactic Acid Calcium 9.1 Total Bilirubin 0.3 AST 111 H ALT 20 Alkaline Phosphatase 71 Ammonia Total Protein 8.2 Albumin 4.4 TSH 0.24 L Free T4 1.30 Urine Color Urine Appearance Urine pH Ur Specific [place] Urine Protein Urine Glucose (UA) Urine Ketones Urine Blood Urine Nitrite Ur Leukocyte Esterase Urine WBC (Auto) Urine RBC (Auto) 03/21/19 03/21/19 03/21/19 11:54 11:54 12:21 WBC RBC Hgb Hct MCV MCH MCHC RDW Plt Count Seg Neutrophils % Lymphocytes % Monocytes % Eosinophils % Basophils % Absolute Neutrophils Absolute Lymphocytes Absolute Monocytes Absolute Eosinophils Absolute Basophils Carbonic Acid HCO3/H2CO3 Ratio ABG pH ABG pCO2 ABG pO2 ABG HCO3 ABG O2 Saturation ABG Base Excess FiO2 Sodium Potassium Chloride Carbon Dioxide Anion Gap BUN Creatinine Est GFR ( Amer) Est GFR (Non-Af Amer) Glucose Lactic Acid 7.1 H Calcium Total Bilirubin AST ALT Alkaline Phosphatase Ammonia < 8.7 L Total Protein Albumin TSH Free T4 Urine Color YELLOW Urine Appearance CLOUDY Urine pH 5.0 Ur Specific [place] 1.018 Urine Protein 100 H Urine Glucose (UA) NEGATIVE Urine Ketones 20 H Urine Blood LARGE H Urine Nitrite NEGATIVE Ur Leukocyte Esterase NEGATIVE Urine WBC (Auto) 13 Urine RBC (Auto) 2 03/21/19 03/21/19 12:30 14:39 WBC RBC Hgb Hct MCV MCH MCHC RDW Plt Count Seg Neutrophils % Lymphocytes % Monocytes % Eosinophils % Basophils % Absolute Neutrophils Absolute Lymphocytes Absolute Monocytes Absolute Eosinophils Absolute Basophils Carbonic Acid 0.85 L HCO3/H2CO3 Ratio 20:1 ABG pH 7.41 ABG pCO2 28.4 L ABG pO2 115.5 H ABG HCO3 17.6 L ABG O2 Saturation 98.3 H ABG Base Excess -5.5 FiO2 ROOM AIR Sodium Potassium Chloride Carbon Dioxide Anion Gap BUN Creatinine Est GFR ( Amer) Est GFR (Non-Af Amer) Glucose Lactic Acid 3.1 H Calcium Total Bilirubin AST ALT Alkaline Phosphatase Ammonia Total Protein Albumin TSH Free T4 Urine Color Urine Appearance Urine pH Ur Specific [place] Urine Protein Urine Glucose (UA) Urine Ketones Urine Blood Urine Nitrite Ur Leukocyte Esterase Urine WBC (Auto) Urine RBC (Auto) 03/21/19 11:36 Troponin I < 0.012 Impressions: Chest X-Ray 03/21/19 11:34 IMPRESSION: NO ACUTE RADIOGRAPHIC FINDING IN THE CHEST. Head CT 03/21/19 13:15 IMPRESSION: NO ACUTE INTRACRANIAL IMAGING FINDINGS. EVIDENCE OF ACUTE STROKE: NO. Status: Imported from PACS Assessment and Plan - Diagnosis (1) Accidental poisoning by isopropyl alcohol Qualifiers: Encounter type: initial encounter Qualified Code(s): T51.2X1A - Toxic effect of 2-Propanol, accidental (unintentional), initial encounter Is this a current diagnosis for this admission?: Yes Plan: Patient has a history of ingestion of isopropyl alcohol when she cannot obtain beer or liquor Contacted poison control Will keep on telemetry monitoring in IMCU EKG in AM Continuous IVF Monitor for worsening CORE [employer]ER depression or GI bleeding IVF resuscitation in ED with 4L IVF Continue with maintenance IVF Ativan IV PRN agitation Scheduled IV Valium for ETOH withdrawal Q4h Neuro checks Serial monitoring of chemistries and lactate levels (2) Acute metabolic encephalopathy Is this a current diagnosis for this admission?: Yes Plan: Secondary to #1 (3) Lactic acidosis Is this a current diagnosis for this admission?: Yes Plan: Secondary to possible seizure and/or isopropyl alcohol ingestion (less likely) Initial lactate 7.1 now improving to 3.1 Fluid resuscitation in ED with 3-4 L IVF Continue maintenance IVF Lactic Acid with AM labs (4) Seizure Is this a current diagnosis for this admission?: Yes Plan: Possible subclinical seizure activity Patient is noncompliant with antiepileptic medication Treated with 1000mg Keppra IV in ED Continue with 500mg Keppra IV BID Seizure precautions (5) Alcohol dependency Is this a current diagnosis for this admission?: Yes Plan: History of alcohol dependency Boyfriend reports the patient drinks alcohol every day, varying amounts, oftentimes will drink isopropyl alcohol when she cannot obtain beer Initial serum alcohol<10 Continuous IVF Scheduled IV valium Daily IV thiamine and folic acid PRN Ativan for agitation or withdrawal symptoms Will discuss inpatient rehab options with case management (6) Dental caries Is this a current diagnosis for this admission?: Yes Plan: Multiple teeth Mouth care per shift (7) ALCIRA (acute kidney injury) Is this a current diagnosis for this admission?: Yes Plan: Secondary to #1 Baseline creatinine < 1.0 Continuous IVF Daily chemistries - Time Time Spent with patient: 25-34 minutes Medications reviewed and adjusted accordingly: Yes Anticipated discharge: Home Within: Other - when medically stable - Inpatient Certification Based on my medical assessment, after consideration of the patient's comorbidities, presenting symptoms, or acuity I expect that the services needed warrant INPATIENT care.: Yes I certify that my determination is in accordance with my understanding of Medicare's requirements for reasonable and necessary INPATIENT services [42 CFR 412.3e].: Yes Medical Necessity: Significant Comorbidiites Make Outpatient Treatment Too Risky, Need For Continuous Telemetry Monitoring, Risk of Complication if Not Cared For in Hospital
[2019-03-21] MEDS: THIAMINE HCL 100 MG, FOLIC ACID 1 MG in NORMAL SALINE 250 ML IV SCH (21:23)
[2019-03-21] MEDS: LORAZEPAM INJ 2 MG/1 ML VIAL IV PRN (21:33)
[2019-03-21] MEDS ORDERED: THIAMINE HCL 100 MG, FOLIC ACID 1 MG in NORMAL SALINE 250 ML IV SCH (22:00)
[2019-03-21] MEDS ORDERED: LEVETIRACETAM 500 MG/NACL-ISO 500 MG/100 ML RTUPB IV SCH (22:00)
[2019-03-21] MEDS: NORMAL SALINE 1000 ML 1,000 ML IV PRN (22:09)
[2019-03-22] MEDS: LORAZEPAM INJ 2 MG/1 ML VIAL IV PRN ×3 (01:33→16:20)
[2019-03-22 05:18] LABS: ABSOLUTE LYMPHOCYTES (AUTO) 2.6 10^3/uL (0.5-4.7); ABSOLUTE MONOCYTES (AUTO) 0.6 10^3/uL (0.1-1.4); ABSOLUTE NEUT (AUTO) 8.2 10^3/uL (1.7-8.2); BASOPHILS % (AUTO) 0.4 % (0-2); HEMATOCRIT 32.3 % (36.0-47.0); LYMPHOCYTES % (AUTO) 22.3 % (13-45); MEAN CORPUSCULAR HEMOGLOBIN 30.2 pg (27.0-33.4); MEAN CORPUSCULAR HGB CONC 34.7 g/dL (32.0-36.0); MEAN CORPUSCULAR VOLUME 87 fl (80-97); MONOCYTES % (AUTO) 5.4 % (3-13); PLATELET COUNT 255 10^3/uL (150-450); RED BLOOD COUNT 3.71 10^6/uL (3.72-5.28); SEGMENTED NEUTROPHILS % (AUTO) 71.9 % (42-78); TOTAL CELLS COUNTED % (AUTO) 100 %; WHITE BLOOD COUNT 11.5 10^3/uL (4.0-10.5)
[2019-03-22 05:19] LABS: ALANINE AMINOTRANSFERASE 31 U/L (9-52); ALBUMIN 2.8 g/dL (3.5-5.0); ALKALINE PHOSPHATASE 49 U/L (38-126); ANION GAP 7 (5-19); ASPARTATE AMINO TRANSFERASE 184 U/L (14-36); BILIRUBIN,DIRECT 0.2 mg/dL (0.0-0.4); BILIRUBIN,TOTAL 0.3 mg/dL (0.2-1.3); BLOOD UREA NITROGEN 17 mg/dL (7-20); CARBON DIOXIDE 25 mmol/L (22-30); CHLORIDE 109 mmol/L (98-107); CHOLESTEROL 127.55 mg/dL (0-200); GLUCOSE 87 mg/dL (75-110); PHOSPHORUS 2.6 mg/dL (2.5-4.5); POTASSIUM 3.3 mmol/L (3.6-5.0); SODIUM 140.6 mmol/L (137-145); TOTAL PROTEIN 5.8 g/dL (6.3-8.2); TRIGLYCERIDES 60 mg/dL (<150)
[2019-03-22] MEDS: PANTOPRAZOLE SODIUM 40 MG TABLET.DR PO SCH (05:21)
[2019-03-22 05:24] LABS: HEMOGLOBIN 11.2 g/dL (12.0-15.5)
[2019-03-22 05:30] LABS: DIRECT LDL 49 mg/dL (<100)
--- NOTE | 2019-03-22 07:25 | EKG REPORT ---
SEVERITY:- BORDERLINE ECG - SINUS TACHYCARDIA BORDERLINE T ABNORMALITIES, INFERIOR LEADS : Confirmed by: Ruslan Pritchett MD 22-Mar-2019 07:24:55
[2019-03-22] MEDS: ENOXAPARIN SODIUM INJ 30 MG/0.3 ML DISP.SYRIN SUBCUT SCH (10:37)
[2019-03-22] MEDS: LEVETIRACETAM 500 MG/NACL-ISO 500 MG/100 ML RTUPB IV SCH ×2 (10:38→21:51)
[2019-03-22] MEDS: NORMAL SALINE 1000 ML 1,000 ML IV PRN (11:49)
[2019-03-22] MEDS: POTASSI CL 20 MEQ/50 ML RIDER 20 MEQ/50 ML RTUPB IV SCH ×2 (11:49→12:53)
[2019-03-22] MEDS: ACETAMINOPHEN 325 MG TABLET PO PRN ×2 (12:00→21:50)
--- NOTE | 2019-03-22 15:13 | PSYCHOLOGICAL NOTE ---
Psych Note - Psych Note Date seen by psych provider: 03/22/19 Time seen by psych provider: 13:54 - Chart review at 1354. Been seen by [facility] multiple times in the past (2019, 2018, 2015 x 3 times). Psych Note: Reason for Consult: Drinking Rubbing Alcohol Contact Permissions: Unknown Patient is a 33 year old female who presented to the ED 03/21/19 via EMS due to AMS with same day admit for accidental poisoning by isopropyl alcohol, acute metabolic encephalopathy, lactic acidosis, seixure, alcohol dependence, dental caries and ALCIRA. Documentation noted a history of drug alcoholism/abuse and seizure disorder. It was note she was missing doses (noncompliant) of her anti epileptic medication (Keppra). She told medical staff she had not had any alcoholic beverage in a few days and admitted to drinking almost an entire bottle of isopropyl alcohol. Medical documentation noted observed shakes and intermittent confusion. Family noted she did not sleep much the night before she came to the ED and she had been admitted to [facility] a few weeks ago for i ngestion of isopropyl alcohol. Boyfriend told medical he and patient had a argument, he left her alone, when he came back she was sleeping with her left arm up and could not move it, he was unable to wake her so he called EMS. Psychiatric related medications being prescribed include: Valium 5MG IV Q6H PRN anxiety/agitation (not administered yet), Keppra 500MG BID (infused) and Ativan 2MG IV Q4H PRN anxiety/agitation. Home medications were listed as Prazosin 1MG QD and Keppra 500MG Q12. UDS negative. Chart review revealed previous ED visits going back to 2014 for SA/MH related issues: 02/23/19 she was seen for hallucinations (identified as alcohol withdrawal hallucinations, was referred to detox but no beds available and was provided resources to continue seeking detox), 11/05/18 she was seen for a possible OD, 08/03/15 possible SA, 07/13/15 status epilepticus/polysubstance abuse/SI, and 06/05/15 for acute intoxication/alcohol dependence/IVC (patient had a Serum alcohol level of 463, had argued with mother and expressed SI with plan to hang herself from the ceiling if possible, mother noted then a hx of Bipolar and ADHD with medication for mood as well as Strattera, had insomnia, epilepsy but no insurance so not taking Keppra, had been to [facility] in the past, was involved with [facility] and AA, had a history of cocaine/meth use, current was alcohol/heroin, had Hx SIB via cutting 2 months prior, maternal family Hx of MDD/PTSD/Insomnia and paternal family history of Bipolar/Alcohol and Drug Use, she was held for a couple days and subsequently discharged to follow up with [facility]). Diagnosis: Drank Bottle of Isopropyl Alcohol Hx Polysubstance Use (Cocaine, Meth, Heroin, Alcohol, Cannabis) 311 (F32.9) Unspecified Depressive Disorder Impression/Plan: Recommendation to IVC patient given just seen February 2019 for similar etiology, hospitalized at [facility] a couple weeks ago for same, history of polysubstance use and mental health (ADHD, Bipolar, Insomnia reported by mother during May 2015 visit). Once medically cleared will attempt to get her to [facility]. Consulted with Dr. Silva regarding the management and care of patient. Attending Hospitalist made aware of recommendations.
--- NOTE | 2019-03-22 16:04 | RADIOLOGY REPORT (SQ) ---
EXAM DESCRIPTION: MRI CHEST COMBO COMPLETED DATE/TIME: 03/22/2019 3:19 pm REASON FOR STUDY: eval for L brachial plexus injury COMPARISON: None. TECHNIQUE: PROCEDURE: T1 pre and post gadolinium, T2 fat sat weight sequences with attention to the brachial plexus. CONTRAST TYPE AND DOSE: 10 mL Dotarem. RENAL FUNCTION: None required. The patient is less than 50 years old. LIMITATIONS: None. FINDINGS: There is soft tissue edema along the left axilla, tracking along the brachials plexus. Hinson btle asymmetric contrast enhancement of the brachials plexus nerve roots are present. No discrete cy st or solid mass or hematoma. Scalene muscles are normal. No clavicle or scapula fracture. Upper t horacic spine in the field of view is unremarkable. IMPRESSION: Subtle asymmetric enhancement along the left brachials plexus and left axillary soft tis sues TECHNICAL DOCUMENTATION: JOB ID: [id number] [employer]- All Rights Reserved Reading location - IP/workstation name: [email or web address]
--- NOTE | 2019-03-22 16:49 | PDOC PROGRESS REPORT ---
Subjective Progress Note for:: 03/22/19 Subjective:: WILLIAM DORNA is a 33 year old female with a PMH of depression, epilepsy and ETOH abuse. She is admitted to the hospitalist service for isopropyl alcohol ingestion and toxic metabolic encephalopathy. Patient is seen this morning on rounds, she is arousable to verbal stimulation. She is able to answer most questions appropriately, she does not recall how she got to the hospital but she understands why she was here. The patient continues to experience LUE palsy. She has gross motor movement to the left shoulder but nearly complete palsy of the LUE. Plan for MRI to evaluate for brachial plexus injury. Psych has evaluated the patient today. They feel that she is appropriate for involuntary commitment and placement in inpatient rehab following [facility] hos pitalization. They state that the patient has been hospitalized multiple times for isopropyl alcohol ingestion (at [facility] and other local hospitals). Previously, they gave the patient and mother referrals for substance abuse rehab, but the patient has obviously failed outpatient treatment. Reason For Visit: ISOPROPYL INGESTION Physical Exam Vital Signs: Temp Pulse Resp BP Pulse Ox 97.8 F 112 H 18 115/66 99 03/22/19 15:32 03/22/19 15:32 03/22/19 15:32 03/22/19 15:32 03/22/19 15:32 Intake & Output 03/21/19 03/22/19 03/23/19 06:59 06:59 06:59 Intake Total 5451.2 127 Balance 5451.2 127 Weight 60.3 kg Results Laboratory Results: 03/22/19 04:44 03/22/19 04:44 03/22/19 03/22/19 03/22/19 04:44 04:44 04:44 WBC 11.5 H RBC 3.71 L Hgb 11.2 L D Hct 32.3 L MCV 87 MCH 30.2 MCHC 34.7 RDW 15.0 H Plt Count 255 Seg Neutrophils % 71.9 Lymphocytes % 22.3 Monocytes % 5.4 Eosinophils % 0.0 Basophils % 0.4 Absolute Neutrophils 8.2 Absolute Lymphocytes 2.6 Absolute Monocytes 0.6 Absolute Eosinophils 0.0 Absolute Basophils 0.0 Sodium 140.6 Potassium 3.3 L Chloride 109 H Carbon Dioxide 25 Anion Gap 7 BUN 17 Creatinine 0.71 Est GFR ( Amer) > 60 Est GFR (Non-Af Amer) > 60 Glucose 87 Calcium 8.0 L Phosphorus 2.6 Magnesium 2.2 Total Bilirubin 0.3 AST 184 H ALT 31 Alkaline Phosphatase 49 Ammonia 14.6 Total Protein 5.8 L Albumin 2.8 L Triglycerides 60 Cholesterol 127.55 LDL Cholesterol Direct 49 VLDL Cholesterol 12.0 HDL Cholesterol 77 TSH 03/22/19 04:44 WBC RBC Hgb Hct MCV MCH MCHC RDW Plt Count Seg Neutrophils % Lymphocytes % Monocytes % Eosinophils % Basophils % Absolute Neutrophils Absolute Lymphocytes Absolute Monocytes Absolute Eosinophils Absolute Basophils Sodium Potassium Chloride Carbon Dioxide Anion Gap BUN Creatinine Est GFR ( Amer) Est GFR (Non-Af Amer) Glucose Calcium Phosphorus Magnesium Total Bilirubin AST ALT Alkaline Phosphatase Ammonia Total Protein Albumin Triglycerides Cholesterol LDL Cholesterol Direct VLDL Cholesterol HDL Cholesterol TSH 0.37 L 03/21/19 11:36 Troponin I < 0.012 Impressions: Chest X-Ray 03/21/19 11:34 IMPRESSION: NO ACUTE RADIOGRAPHIC FINDING IN THE CHEST. Head CT 03/21/19 13:15 IMPRESSION: NO ACUTE INTRACRANIAL IMAGING FINDINGS. EVIDENCE OF ACUTE STROKE: NO. Chest MRI 03/22/19 11:05 IMPRESSION: Subtle asymmetric enhancement along the left brachials plexus and left axillary soft tissues Assessment and Plan - Diagnosis (1) Accidental poisoning by isopropyl alcohol Qualifiers: Encounter type: initial encounter Qualified Code(s): T51.2X1A - Toxic effect of 2-Propanol, accidental (unintentional), initial encounter Is this a current diagnosis for this admission?: Yes Plan: Patient has a history of ingestion of isopropyl alcohol when she cannot obtain beer or liquor Contacted poison control Will keep on telemetry monitoring in IMCU Continuous IVF Monitor for worsening AIRCRAFT B[employer] REPA[employer]ER depression or GI bleeding IVF resuscitation in ED with 4L IVF Continue with maintenance IVF Ativan IV PRN agitation Scheduled IV Valium for ETOH withdrawal Q4h Neuro checks Serial monitoring of chemistries and lactate levels (2) Acute metabolic encephalopathy Is this a current diagnosis for this admission?: Yes Plan: Secondary to #1 Improving today, patient is arousable to verbal stimulation She is able to answer all questions appropriately, is sometimes slow to respond to questions (3) Lactic acidosis Is this a current diagnosis for this admission?: Yes Plan: Secondary to possible seizure and/or isopropyl alcohol ingestion (less likely) Initial lactate 7.1 now improving to 3.1 Fluid resuscitation in ED with 3-4 L IVF Continue maintenance IVF Lactic Acid with AM labs (4) Seizure Is this a current diagnosis for this admission?: Yes Plan: Possible subclinical seizure activity Patient is noncompliant with antiepileptic medication Treated with 1000mg Keppra IV in ED Continue with 500mg Keppra IV BID Seizure precautions (5) Alcohol dependency Is this a current diagnosis for this admission?: Yes Plan: History of alcohol dependency Boyfriend reports the patient drinks alcohol every day, varying amounts, oftentimes will drink isopropyl alcohol when she cannot obtain beer Initial serum alcohol<10 Continuous IVF Scheduled IV valium Daily IV thiamine and folic acid PRN Ativan for agitation or withdrawal symptoms Patient seen today by psych, who recommend IVC and inpatient rehab following [facility] hospitalization. Patient has history of intoxication from isopropyl alcohol. According to psych team, who know the patient very well, she has failed outpatient follow-up. (6) Dental caries Is this a current diagnosis for this admission?: Yes Plan: Multiple teeth Mouth care per shift (7) ALCIRA (acute kidney injury) Is this a current diagnosis for this admission?: Yes Plan: Resolved Secondary to #1 Baseline creatinine < 1.0 Continuous IVF Daily chemistries (8) Brachial plexus palsy Is this a current diagnosis for this admission?: Yes Plan: According to boyfriend, patient slept for approximately 10 to 12 hours with her left arm extended up above her head Upon presentation to the ED, the patient's LUE was completely flaccid (+) Gross motor movement to the shoulder, palsy to LUE Sensation intact No improvement in symptoms within the last 24 hours, plan for MRI today to evaluate brachial plexus injury - Time Time Spent with patient: 15-24 minutes Anticipated discharge: Other - inpatient psych rehab Within: within 48 hours - Inpatient Certification Based on my medical assessment, after consideration of the patient's comorbidities, presenting symptoms, or acuity I expect that the services needed warrant INPATIENT care.: Yes I certify that my determination is in accordance with my understanding of Medicare's requirements for reasonable and necessary INPATIENT services [42 CFR 412.3e].: Yes Medical Necessity: Need for IV Antibiotics
[2019-03-22] MEDS: NICOTINE 21 MG/24 HR PATCH.TD24 TD SCH (20:02)
[2019-03-22] MEDS: ONDANSETRON 4 MG TAB.RAPDIS PO PRN (20:02)
[2019-03-22] MEDS: THIAMINE HCL 100 MG, FOLIC ACID 1 MG in NORMAL SALINE 250 ML IV SCH (21:47)
[2019-03-22] MEDS: DIAZEPAM INJ 10 MG/2 ML DISP.SYRIN IV PRN (21:48)
[2019-03-23] MEDS: LORAZEPAM INJ 2 MG/1 ML VIAL IV PRN ×5 (00:22→22:46)
[2019-03-23] MEDS: NORMAL SALINE 1000 ML 1,000 ML IV PRN ×2 (01:13→19:50)
[2019-03-23] MEDS: DIAZEPAM INJ 10 MG/2 ML DISP.SYRIN IV PRN ×3 (04:00→16:51)
[2019-03-23 06:27] LABS: HEMATOCRIT 31.2 % (36.0-47.0); HEMOGLOBIN 10.7 g/dL (12.0-15.5); MEAN CORPUSCULAR HEMOGLOBIN 30.3 pg (27.0-33.4); MEAN CORPUSCULAR HGB CONC 34.2 g/dL (32.0-36.0); MEAN CORPUSCULAR VOLUME 88 fl (80-97); PLATELET COUNT 207 10^3/uL (150-450); RED BLOOD COUNT 3.53 10^6/uL (3.72-5.28); RED CELL DISTRIBUTION WIDTH 14.5 % (11.5-14.0); WHITE BLOOD COUNT 6.2 10^3/uL (4.0-10.5)
[2019-03-23 06:43] LABS: ALANINE AMINOTRANSFERASE 38 U/L (9-52); ALBUMIN 2.6 g/dL (3.5-5.0); ALKALINE PHOSPHATASE 51 U/L (38-126); ANION GAP 5 (5-19); ASPARTATE AMINO TRANSFERASE 133 U/L (14-36); BILIRUBIN,DIRECT 0.1 mg/dL (0.0-0.4); BILIRUBIN,TOTAL 0.2 mg/dL (0.2-1.3); BLOOD UREA NITROGEN 11 mg/dL (7-20); CARBON DIOXIDE 24 mmol/L (22-30); CHLORIDE 111 mmol/L (98-107); GLUCOSE 92 mg/dL (75-110); PHOSPHORUS 2.4 mg/dL (2.5-4.5); POTASSIUM 3.6 mmol/L (3.6-5.0); TOTAL PROTEIN 5.4 g/dL (6.3-8.2)
[2019-03-23] MEDS: PANTOPRAZOLE SODIUM 40 MG TABLET.DR PO SCH (06:56)
[2019-03-23] MEDS: NICOTINE 21 MG/24 HR PATCH.TD24 TD SCH (09:45)
[2019-03-23] MEDS: LEVETIRACETAM 500 MG/NACL-ISO 500 MG/100 ML RTUPB IV SCH ×2 (09:46→21:25)
[2019-03-23] MEDS: ENOXAPARIN SODIUM INJ 30 MG/0.3 ML DISP.SYRIN SUBCUT SCH (09:49)
--- NOTE | 2019-03-23 11:47 | PSYCHOLOGICAL NOTE ---
Psych Note - Psych Note Date seen by psych provider: 03/23/19 Time seen by psych provider: 11:39 - In person evaluation from [id number]. Call to Port at 1144. Psych Note: Reason for Consult: Drinking Rubbing Alcohol, IVC, Chart review only yesterday, today in person evaluation Contact Permissions: Unknown Patient is a 33 year old female who presented to the ED 03/21/19 via EMS due to AMS with same day admit for accidental poisoning by isopropyl alcohol, acute metabolic encephalopathy, lactic acidosis, seizure, alcohol dependence, dental caries and ALCIRA. Today patient was sleeping, difficult to arouse but she did wake up and once awake presented disoriented and lethargic. She reported she had "just moved out of her mother's house, drinking the rubbing alcohol took place there and the trigger was arguing/fussing/fighting with mother." She stated she came tot [facility] because "I fell, on my arm, I had a seizure." She admitted to drinking isopropyl alcohol this time, said "before this fuck up it had been two weeks since using." She identified using Cocaine. She said another incident of drinking isopropyl alcohol 2-3 weeks ago and going to [facility] "was a lie." She reported going to the local [facility] for SAIOP, the last 2 weeks, goes 3 days a week. She denied SI. Attending medical staff informed [facility] that patient has nerve damage in her arm, it is not permanent but she needs to have a follow up/referral to neurologist. Contacted [facility] and spoke to Pallavi. She stated patient did come in the office but is not started on any programming and has not been going for 3 days a week the last 2 weeks. Spoke to attending nurse who stated patient is on bed alarm since she is being administered Ativan and Valium, is disoriented and tries to do things on her own. She noted it was the boyfriend who stated patient drank isopropyl alcohol 2-3 weeks ago also. Diagnosis: Drank Bottle of Isopropyl Alcohol Hx Polysubstance Use (Cocaine, Meth, Heroin, Alcohol, Cannabis) 311 (F32.9) Unspecified Depressive Disorder Impression/Plan: Recommendation to move forward with IVC and look for placement at [facility]. Consulted with Dr. Silva regarding the management and care of patient. 05/14/19 Recommendation: IVC patient given just seen February 2019 for similar etiology, hospitalized at [facility] a couple weeks ago for same, history of polysubstance use and mental health (ADHD, Bipolar, Insomnia reported by mother during May 2015 visit). Once medically cleared will attempt to get her to [facility]. Consulted with Dr. Silva regarding the management and care of patient. Attending Hospitalist made aware of recommendations.
[2019-03-23] MEDS ORDERED: METHYLPREDNISOLONE INJ 125 MG/2 ML SDV IV ONE (12:00)
--- NOTE | 2019-03-23 16:13 | PDOC PROGRESS REPORT ---
Subjective Progress Note for:: 03/23/19 Subjective:: WILLIAM DORAN is a 33 year old female with a PMH of depression, epilepsy and ETOH abuse. She is admitted to the hospitalist service for isopropyl alcohol ingestion and toxic metabolic encephalopathy. Patient is seen this morning on rounds, she is arousable to verbal stimulation. She is able to answer questions appropriately. The patient continues to experience LUE palsy. She has gross motor movement to the left shoulder, flexion and extension of her elbow but nearly complete palsy of the distal LUE. MRI confirms brachial plexus injury. Started on IV steroids today. Psych has re-evaluated the patient today. The patient remains under involuntary commitment, plan to send to [facility] inpatient detox if space is available. The patient has been hospitalized multiple times for isopropyl alcohol ingestion (at [facility] and other local hospitals). Previously, they gave the patient and mother referrals for substance abuse rehab, but the patient has o bviously failed outpatient treatment. Nursing staff notified this provider at 1500 the patient was seen consuming the hand hat lacer in the room. This was visualized by the boyfriend only. He notified nursing staff. Hand hat lacer bottles and hand soap bottles were removed from the room. Based on the contents left in the bottles, the patient consumed a very minimal amount. No change in current treatment plan. Reason For Visit: ISOPROPYL INGESTION Physical Exam Vital Signs: Temp Pulse Resp BP Pulse Ox 97.7 F 78 12 107/69 99 03/23/19 12:00 03/23/19 12:00 03/23/19 12:00 03/23/19 12:00 03/23/19 12:00 Intake & Output 03/22/19 03/23/19 03/24/19 06:59 06:59 06:59 Intake Total 5451.2 2268.2 355 Balance 5451.2 2268.2 355 Weight 60.3 kg 64.2 kg General appearance: PRESENT: no acute distress, well-developed, well-nourished Head exam: PRESENT: atraumatic, normocephalic Eye exam: PRESENT: conjunctiva pink, EOMI, PERRLA. ABSENT: scleral icterus Ear exam: PRESENT: normal external ear exam Mouth exam: PRESENT: moist, tongue midline Teeth exam: PRESENT: poor dentation Neck exam: ABSENT: carotid bruit, JVD, lymphadenopathy, thyromegaly Respiratory exam: PRESENT: clear to auscultation ricky. ABSENT: rales, rhonchi, wheezes Cardiovascular exam: PRESENT: RRR. ABSENT: diastolic murmur, rubs, systolic murmur Pulses: PRESENT: normal radial pulses, normal dorsalis pedis pul Vascular exam: PRESENT: normal capillary refill GI/Abdominal exam: PRESENT: normal bowel sounds, soft. ABSENT: distended, guarding, mass, organolmegaly, rebound, tenderness Rectal exam: PRESENT: deferred Extremities exam: ABSENT: calf tenderness, clubbing, full ROM - Partial ROM to LUE, pedal edema Musculoskeletal exam: PRESENT: ambulatory, full ROM - Partial ROM to LUE secondary to brachial plexus injury. ABSENT: deformity Neurological exam: PRESENT: alert, awake, oriented to person, oriented to place, oriented to time, oriented to situation Psychiatric exam: PRESENT: appropriate affect, normal mood. ABSENT: homicidal ideation, suicidal ideation Skin exam: PRESENT: dry, intact, warm. ABSENT: cyanosis, rash Results Laboratory Results: 03/23/19 06:09 03/23/19 06:09 03/23/19 03/23/19 03/23/19 06:09 06:09 06:09 WBC 6.2 RBC 3.53 L Hgb 10.7 L Hct 31.2 L MCV 88 MCH 30.3 MCHC 34.2 RDW 14.5 H Plt Count 207 Sodium 140.0 Potassium 3.6 Chloride 111 H Carbon Dioxide 24 Anion Gap 5 BUN 11 Creatinine 0.62 Est GFR ( Amer) > 60 Est GFR (Non-Af Amer) > 60 Glucose 92 Lactic Acid 0.8 Calcium 8.0 L Phosphorus 2.4 L Magnesium 2.0 Total Bilirubin 0.2 AST 133 H ALT 38 Alkaline Phosphatase 51 Total Protein 5.4 L Albumin 2.6 L 03/21/19 12:21 Catheterized Urine Urine Culture - Final NO GROWTH 2 DAYS 03/21/19 11:36 Troponin I < 0.012 Impressions: Chest X-Ray 03/21/19 11:34 IMPRESSION: NO ACUTE RADIOGRAPHIC FINDING IN THE CHEST. Head CT 03/21/19 13:15 IMPRESSION: NO ACUTE INTRACRANIAL IMAGING FINDINGS. EVIDENCE OF ACUTE STROKE: NO. Chest MRI 03/22/19 11:05 IMPRESSION: Subtle asymmetric enhancement along the left brachials plexus and left axillary soft tissues Status: Imported from PACS Assessment and Plan - Diagnosis (1) Accidental poisoning by isopropyl alcohol Qualifiers: Encounter type: initial encounter Qualified Code(s): T51.2X1A - Toxic effect of 2-Propanol, accidental (unintentional), initial encounter Is this a current diagnosis for this admission?: Yes Plan: Patient has a history of ingestion of isopropyl alcohol when she cannot obtain beer or liquor Contacted poison control Will keep on telemetry monitoring in [facility] Continuous IVF Monitor for worsening [employer]IC depression or GI bleeding IVF resuscitation in ED with 4L IVF Continue with maintenance IVF Ativan IV PRN agitation Scheduled IV Valium for ETOH withdrawal Q4h Neuro checks Serial monitoring of chemistries (2) Acute metabolic encephalopathy Is this a current diagnosis for this admission?: Yes Plan: Secondary to #1 Improving today, patient is arousable to verbal stimulation She is able to answer all questions appropriately, is sometimes slow to respond to questions (3) Lactic acidosis Is this a current diagnosis for this admission?: Yes Plan: Resolved Secondary to possible seizure and/or isopropyl alcohol ingestion (less likely) Initial lactate 7.1 now improving to 3.1 Fluid resuscitation in ED with 3-4 L IVF Continue maintenance IVF Lactic Acid with AM labs (4) Seizure Is this a current diagnosis for this admission?: Yes Plan: Possible subclinical seizure activity Patient is noncompliant with antiepileptic medication Treated with 1000mg Keppra IV in ED Continue with 500mg Keppra IV BID Seizure precautions (5) Alcohol dependency Is this a current diagnosis for this admission?: Yes Plan: History of alcohol dependency Boyfriend reports the patient drinks alcohol every day, varying amounts, oftentimes will drink isopropyl alcohol when she cannot obtain beer Initial serum alcohol<10 Continuous IVF Scheduled IV valium Daily IV thiamine and folic acid PRN Ativan for agitation or withdrawal symptoms Patient seen today by psych, who recommend IVC and inpatient rehab following [facility] hospitalization. Patient has history of intoxication from isopropyl alcohol. According to psych team, who know the patient very well, she has failed outpatient follow-up. (6) Dental caries Is this a current diagnosis for this admission?: Yes Plan: Multiple teeth Mouth care per shift (7) ALCIRA (acute kidney injury) Is this a current diagnosis for this admission?: Yes Plan: Resolved Secondary to #1 Baseline creatinine < 1.0 Continuous IVF Daily chemistries (8) Brachial plexus palsy Is this a current diagnosis for this admission?: Yes Plan: According to boyfriend, patient slept for approximately 10 to 12 hours with her left arm extended up above her head Upon presentation to the ED, the patient's LUE was completely flaccid (+) Gross motor movement to the shoulder, flexion and extension of the elbow (although poor control of motor movement), otherwise complete palsy to distal LUE Sensation intact MRI done yesterday confirms brachial plexus injury Initiate IV steroids, 125 mg Solu-Medrol once today, 40 mg Solu-Medrol every 8 hours - Time Time Spent with patient: 15-24 minutes Medications reviewed and adjusted accordingly: Yes Anticipated discharge: Home, Other - inpatient rehab/detox Within: within 48 hours - Inpatient Certification Based on my medical assessment, after consideration of the patient's comorbidities, presenting symptoms, or acuity I expect that the services needed warrant INPATIENT care.: Yes I certify that my determination is in accordance with my understanding of Medicare's requirements for reasonable and necessary INPATIENT services [42 CFR 412.3e].: Yes Medical Necessity: Need For Continuous Telemetry Monitoring, Risk of Complication if Not Cared For in Hospital
[2019-03-23] MEDS: ONDANSETRON 4 MG TAB.RAPDIS PO PRN (19:55)
[2019-03-23] MEDS: THIAMINE HCL 100 MG, FOLIC ACID 1 MG in NORMAL SALINE 250 ML IV SCH (22:47)
[2019-03-24] MEDS: ACETAMINOPHEN 325 MG TABLET PO PRN ×2 (00:02→06:32)
[2019-03-24] MEDS: METHYLPREDNISOLONE INJ 40 MG/1 ML SDV IV SCH ×4 (00:02→22:51)
[2019-03-24] MEDS: DIAZEPAM INJ 10 MG/2 ML DISP.SYRIN IV PRN ×3 (02:09→17:40)
[2019-03-24] MEDS: NORMAL SALINE 1000 ML 1,000 ML IV PRN ×2 (02:37→10:33)
[2019-03-24] MEDS: PANTOPRAZOLE SODIUM 40 MG TABLET.DR PO SCH (05:18)
[2019-03-24] MEDS: LORAZEPAM INJ 2 MG/1 ML VIAL IV PRN ×3 (07:58→20:38)
[2019-03-24] MEDS: ENOXAPARIN SODIUM INJ 40 MG/0.4 ML DISP.SYRIN SUBCUT SCH (10:04)
[2019-03-24 10:17] LABS: HEMATOCRIT 34.9 % (36.0-47.0); HEMOGLOBIN 11.8 g/dL (12.0-15.5); MEAN CORPUSCULAR HEMOGLOBIN 29.6 pg (27.0-33.4); MEAN CORPUSCULAR HGB CONC 33.9 g/dL (32.0-36.0); MEAN CORPUSCULAR VOLUME 87 fl (80-97); PLATELET COUNT 263 10^3/uL (150-450); RED CELL DISTRIBUTION WIDTH 14.6 % (11.5-14.0); WHITE BLOOD COUNT 6.7 10^3/uL (4.0-10.5)
[2019-03-24] MEDS: NICOTINE 21 MG/24 HR PATCH.TD24 TD SCH (10:24)
[2019-03-24] MEDS: FOLIC ACID 1 MG TABLET PO SCH (10:25)
[2019-03-24] MEDS: LEVETIRACETAM 500 MG TABLET PO SCH ×2 (10:25→22:51)
[2019-03-24] MEDS: THIAMINE HCL 100 MG TABLET PO SCH (10:25)
[2019-03-24 10:42] LABS: ALANINE AMINOTRANSFERASE 46 U/L (9-52); ALBUMIN 3.3 g/dL (3.5-5.0); ALKALINE PHOSPHATASE 54 U/L (38-126); ANION GAP 9 (5-19); ASPARTATE AMINO TRANSFERASE 116 U/L (14-36); BILIRUBIN,DIRECT 0.2 mg/dL (0.0-0.4); BILIRUBIN,TOTAL 0.4 mg/dL (0.2-1.3); BLOOD UREA NITROGEN 10 mg/dL (7-20); CALCIUM 9.1 mg/dL (8.4-10.2); CARBON DIOXIDE 23 mmol/L (22-30); CHLORIDE 107 mmol/L (98-107); GLUCOSE 147 mg/dL (75-110); PHOSPHORUS 2.7 mg/dL (2.5-4.5); POTASSIUM 3.9 mmol/L (3.6-5.0); SODIUM 138.8 mmol/L (137-145); TOTAL PROTEIN 6.4 g/dL (6.3-8.2)
[2019-03-24] MEDS ORDERED: ONDANSETRON 4 MG TAB.RAPDIS PO PRN (15:30)
[2019-03-24] MEDS: KETOROLAC TROMETHAMINE INJ/PF 30 MG/1 ML SDV IV PRN (18:33)
[2019-03-24] MEDS ORDERED: ZOLPIDEM TARTRATE 5 MG TABLET PO PRN (20:24)
[2019-03-25] MEDS: KETOROLAC TROMETHAMINE INJ/PF 30 MG/1 ML SDV IV PRN (00:34)
[2019-03-25] MEDS: ACETAMINOPHEN 325 MG TABLET PO PRN ×2 (01:44→14:26)
[2019-03-25] MEDS: LORAZEPAM INJ 2 MG/1 ML VIAL IV PRN ×2 (01:44→07:03)
[2019-03-25] MEDS: PANTOPRAZOLE SODIUM 40 MG TABLET.DR PO SCH (07:03)
[2019-03-25] MEDS: METHYLPREDNISOLONE INJ 40 MG/1 ML SDV IV SCH ×2 (07:03→14:26)
--- NOTE | 2019-03-25 07:45 | PDOC PROGRESS REPORT ---
Subjective Progress Note for:: 03/24/19 Subjective:: WILLIAM DORAN is a 33 year old female with a PMH of depression, epilepsy and ETOH abuse. She is admitted to the hospitalist service for isopropyl alcohol ingestion and toxic metabolic encephalopathy. Patient is seen this morning on rounds, she is awake, alert and oriented x 3. She is able to answer questions appropriately. The patient continues to experience LUE palsy but states it is improving. She has gross motor movement to the left shoulder, flexion and extension of her elbow and wrist. She has poor control of her gross motor movements and has virtually no fine motor capabilities. Will need to continue on steroids for approximately 1 week and will need to follow up with neurologist. It is likely that she will not regain her functionality of the LUE for 1-3 months. Patient's laboratory studies and vital signs are all within normal limits. At t his time the patient is medically cleared for discharge to inpatient detox/rehab. Reason For Visit: ISOPROPYL INGESTION Physical Exam Vital Signs: Temp Pulse Resp BP Pulse Ox 97.2 F 68 14 157/96 H 100 03/24/19 07:36 03/24/19 07:36 03/24/19 07:36 03/24/19 07:36 03/24/19 07:36 Intake & Output 03/23/19 03/24/19 03/25/19 06:59 06:59 06:59 Intake Total 2268.2 3844.2 Balance 2268.2 3844.2 Weight 64.2 kg 64.8 kg General appearance: PRESENT: no acute distress, well-developed, well-nourished Head exam: PRESENT: atraumatic, normocephalic Eye exam: PRESENT: conjunctiva pink, EOMI, PERRLA. ABSENT: scleral icterus Ear exam: PRESENT: normal external ear exam Mouth exam: PRESENT: moist, tongue midline Teeth exam: PRESENT: poor dentation Neck exam: ABSENT: carotid bruit, JVD, lymphadenopathy, thyromegaly Respiratory exam: PRESENT: clear to auscultation ricky, symmetrical, unlabored. ABSENT: rales, rhonchi, wheezes Cardiovascular exam: PRESENT: RRR. ABSENT: diastolic murmur, rubs, systolic murmur Pulses: PRESENT: normal dorsalis pedis pul Vascular exam: PRESENT: normal capillary refill GI/Abdominal exam: PRESENT: normal bowel sounds, soft. ABSENT: distended, guarding, mass, organolmegaly, rebound, tenderness Rectal exam: PRESENT: deferred Extremities exam: ABSENT: calf tenderness, clubbing, full ROM - lue palsy. poor gross motor function. no fine motor function, pedal edema Musculoskeletal exam: PRESENT: ambulatory. ABSENT: deformity, full ROM - lue palsy. poor gross motor function. no fine motor function Neurological exam: PRESENT: alert, awake, oriented to person, oriented to place, oriented to time, oriented to situation Psychiatric exam: PRESENT: appropriate affect, normal mood. ABSENT: homicidal ideation, suicidal ideation Skin exam: PRESENT: dry, intact, warm. ABSENT: cyanosis, rash Results Laboratory Results: 03/23/19 06:09 03/23/19 06:09 03/21/19 12:21 Catheterized Urine Urine Culture - Final NO GROWTH 2 DAYS 03/21/19 11:36 Troponin I < 0.012 Impressions: Chest X-Ray 03/21/19 11:34 IMPRESSION: NO ACUTE RADIOGRAPHIC FINDING IN THE CHEST. Head CT 03/21/19 13:15 IMPRESSION: NO ACUTE INTRACRANIAL IMAGING FINDINGS. EVIDENCE OF ACUTE STROKE: NO. Chest MRI 03/22/19 11:05 IMPRESSION: Subtle asymmetric enhancement along the left brachials plexus and left axillary soft tissues Status: Imported from PACS Assessment and Plan - Diagnosis (1) Accidental poisoning by isopropyl alcohol Qualifiers: Encounter type: initial encounter Qualified Code(s): T51.2X1A - Toxic effec t of 2-Propanol, accidental (unintentional), initial encounter Is this a current diagnosis for this admission?: Yes Plan: Patient has a history of ingestion of isopropyl alcohol when she cannot obtain beer or liquor Contacted poison control Will keep on telemetry monitoring in [facility] Continuous IVF Monitor for worsening [employer] depression or GI bleeding IVF resuscitation in ED with 4L IVF Continue with maintenance IVF Ativan IV PRN agitation Scheduled IV Valium for ETOH withdrawal Q4h Neuro checks Serial monitoring of chemistries (2) Acute metabolic encephalopathy Is this a current diagnosis for this admission?: Yes Plan: Secondary to #1 Improving today, patient is arousable to verbal stimulation She is able to answer all questions appropriately, is sometimes slow to respond to questions (3) Lactic acidosis Is this a current diagnosis for this admission?: Yes Plan: Resolved Secondary to possible seizure and/or isopropyl alcohol ingestion (less likely) Initial lactate 7.1 now improving to 3.1 Fluid resuscitation in ED with 3-4 L IVF Continue maintenance IVF Lactic Acid with AM labs (4) Seizure Is this a current diagnosis for this admission?: Yes Plan: Possible subclinical seizure activity Patient is noncompliant with antiepileptic medication Treated with 1000mg Keppra IV in ED Switch from IV to PO Keppra 500mg Seizure precautions (5) Alcohol dependency Is this a current diagnosis for this admission?: Yes Plan: History of alcohol dependency Boyfriend reports the patient drinks alcohol every day, varying amounts, oftentimes will drink isopropyl alcohol when she cannot obtain beer Initial serum alcohol<10 Continuous IVF Scheduled IV valium Daily IV thiamine and folic acid PRN Ativan for agitation or withdrawal symptoms Patient seen today by psych, who recommend IVC and inpatient rehab following [facility] hospitalization. Patient has history of intoxication from isopropyl alcohol. According to psych team, who know the patient very well, she has failed outpatient follow-up. (6) Dental caries Is this a current diagnosis for this admission?: Yes Plan: Multiple teeth Mouth care per shift (7) ALCIRA (acute kidney injury) Is this a current diagnosis for this admission?: Yes Plan: Resolved Secondary to #1 Baseline creatinine < 1.0 Continuous IVF Daily chemistries (8) Brachial plexus palsy Is this a current diagnosis for this admission?: Yes Plan: According to boyfriend, patient slept for approximately 10 to 12 hours with her left arm extended up above her head Upon presentation to the ED, the patient's LUE was completely flaccid (+) Gross motor movement to the shoulder, flexion and extension of the elbow (although poor control of motor movement), otherwise complete palsy to distal LUE Sensation intact MRI done yesterday confirms brachial plexus injury Continue 40 mg Solu-Medrol every 8 hours will need neurology follow up - Time Time Spent with patient: 15-24 minutes Medications reviewed and adjusted accordingly: Yes Anticipated discharge: Other - inpatient detox Within: within 24 hours - Inpatient Certification Based on my medical assessment, after consideration of the patient's comorbidities, presenting symptoms, or acuity I expect that the services needed warrant INPATIENT care.: Yes I certify that my determination is in accordance with my understanding of Medicare's requirements for reasonable and necessary INPATIENT services [42 CFR 412.3e].: Yes Medical Necessity: Risk of Complication if Not Cared For in Hospital
[2019-03-25] MEDS ORDERED: LORAZEPAM INJ 2 MG/1 ML VIAL IV PRN (08:54)
[2019-03-25] MEDS: ENOXAPARIN SODIUM INJ 40 MG/0.4 ML DISP.SYRIN SUBCUT SCH (09:32)
[2019-03-25] MEDS: FOLIC ACID 1 MG TABLET PO SCH (09:35)
[2019-03-25] MEDS: NICOTINE 21 MG/24 HR PATCH.TD24 TD SCH (09:35)
[2019-03-25] MEDS: LEVETIRACETAM 500 MG TABLET PO SCH (09:35)
[2019-03-25] MEDS: THIAMINE HCL 100 MG TABLET PO SCH (09:35)
[2019-03-25 17:48] VITALS: BP 107/69
== END 2019-03-25 18:05 | disposition home or self-care (01) | DRG 917 ==
LOC: ER 11:28 → EH 15:53 → EEVIPCON 15:53 → 3W 21:11
PROVIDERS: ADMIT Internal Medicine; ATTEND Internal Medicine
DX: T51.2X1A Toxic effect of 2-Propanol, accidental (unintentional), initial encounter (principal); G92 Toxic encephalopathy; E87.2 Acidosis; N17.9 Acute kidney failure, unspecified; F10.239 Alcohol dependence with withdrawal, unspecified; G40.909 Epilepsy, unspecified, not intractable, without status epilepticus; Z91.14 Patient's other noncompliance with medication regimen; F31.9 Bipolar disorder, unspecified; F17.200 Nicotine dependence, unspecified, uncomplicated; R74.0 Nonspecific elevation of levels of transaminase and lactic acid dehydrogenase [LDH]; F12.90 Cannabis use, unspecified, uncomplicated; F11.90 Opioid use, unspecified, uncomplicated; F14.90 Cocaine use, unspecified, uncomplicated; F15.90 Other stimulant use, unspecified, uncomplicated; K02.9 Dental caries, unspecified; S14.3XXA Injury of brachial plexus, initial encounter; X50.1XXA Overexertion from prolonged static or awkward postures, initial encounter; Y92.003 Bedroom of unspecified non-institutional (private) residence as the place of occurrence of the external cause; Z88.2 Allergy status to sulfonamides; Z82.3 Family history of stroke; Z83.3 Family history of diabetes mellitus; Z82.49 Family history of ischemic heart disease and other diseases of the circulatory system
CPT/HCPCS: 36415; 70450; 71045; 71552; 80053; 80061; 80307; 81001; 81025; 82140; 82803; 82962; 83605; 83735; 84100; 84439; 84443; 84484; 85025; 85027; 85610; 87040; 87086; 93005; 93010; 96361; 96365; 96375; 99291; A9576; J1650; J1885; J1953; J2060; J2920; J2930; J3360; J3411; J3480; J3490; J7030; J7050; J7120; S0119

== ENCOUNTER 2019-05-10 22:52 | Emergency (ER) | payer SELFPAY ==
[2019-05-11] MEDS ORDERED: NORMAL SALINE 1000 ML 1,000 ML IV ONE (00:57)
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
[2019-05-11 01:27] LABS: ABSOLUTE BASOPHILS # (AUTO) 0.1 10^3/uL (0.0-0.2); ABSOLUTE LYMPHOCYTES (AUTO) 3.7 10^3/uL (0.5-4.7); ABSOLUTE MONOCYTES (AUTO) 0.7 10^3/uL (0.1-1.4); ABSOLUTE NEUT (AUTO) 5.7 10^3/uL (1.7-8.2); HEMATOCRIT 35.5 % (36.0-47.0); HEMOGLOBIN 12.1 g/dL (12.0-15.5); LYMPHOCYTES % (AUTO) 36.2 % (13-45); MEAN CORPUSCULAR HEMOGLOBIN 29.4 pg (27.0-33.4); MEAN CORPUSCULAR HGB CONC 34.1 g/dL (32.0-36.0); MEAN CORPUSCULAR VOLUME 86 fl (80-97); MONOCYTES % (AUTO) 6.5 % (3-13); PLATELET COUNT 350 10^3/uL (150-450); RED BLOOD COUNT 4.12 10^6/uL (3.72-5.28); RED CELL DISTRIBUTION WIDTH 16.4 % (11.5-14.0); SEGMENTED NEUTROPHILS % (AUTO) 56.3 % (42-78); TOTAL CELLS COUNTED % (AUTO) 100 %; WHITE BLOOD COUNT 10.1 10^3/uL (4.0-10.5)
[2019-05-11 01:34] LABS: APPEARANCE,URINE CLOUDY; BILIRUBIN,URINE NEGATIVE (NEGATIVE); COLOR,URINE YELLOW; GLUCOSE, URINE NEGATIVE (NEGATIVE); KETONES,URINE NEGATIVE (NEGATIVE); LEUKOCYTE ESTERASE,URINE NEGATIVE (NEGATIVE); NITRITE,URINE NEGATIVE (NEGATIVE); PROTEIN,URINE NEGATIVE (NEGATIVE); URINE SPECIFIC GRAVITY 1.009; UROBILINOGEN,URINE NEGATIVE mg/dL (<2.0)
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
[2019-05-11 01:46] LABS: ALANINE AMINOTRANSFERASE 17 U/L (9-52); ALBUMIN 3.8 g/dL (3.5-5.0); ALCOHOL 236 mg/dL (NONE DETECTED); ALKALINE PHOSPHATASE 62 U/L (38-126); ANION GAP 12 (5-19); ASPARTATE AMINO TRANSFERASE 31 U/L (14-36); BILIRUBIN,DIRECT 0.2 mg/dL (0.0-0.4); BILIRUBIN,TOTAL 0.3 mg/dL (0.2-1.3); BLOOD UREA NITROGEN 15 mg/dL (7-20); CALCIUM 8.8 mg/dL (8.4-10.2); CARBON DIOXIDE 34 mmol/L (22-30); CHLORIDE 98 mmol/L (98-107); GLUCOSE 93 mg/dL (75-110); SODIUM 144.1 mmol/L (137-145); TOTAL PROTEIN 6.7 g/dL (6.3-8.2)
[2019-05-11 01:49] LABS: ACETAMINOPHEN < 10 ug/mL (10-30); SALICYLATE < 1.0 mg/dL (2.0-20.0)
[2019-05-11 01:50] LABS: POTASSIUM 2.7 mmol/L (3.6-5.0)
[2019-05-11] MEDS ORDERED: LEVETIRACETAM 500 MG TABLET PO ONE (01:55)
[2019-05-11] MEDS ORDERED: POTASSIUM CHLORIDE 10 MEQ CAPSULE.ER PO ONE (01:55)
[2019-05-11 01:58] LABS: URINE AMPHETAMINES SCREEN NEGATIVE; URINE BARBITURATES SCREEN NEGATIVE; URINE BENZODIAZEPINES SCREEN NEGATIVE; URINE COCAINE SCREEN NEGATIVE; URINE MARIJUANA (THC) SCREEN NEGATIVE; URINE METHADONE SCREEN NEGATIVE; URINE PHENCYCLIDINE SCREEN NEGATIVE
[2019-05-11 03:31] VITALS: BP 129/87
--- NOTE | 2019-05-11 17:55 | EKG REPORT ---
SEVERITY:- BORDERLINE ECG - SINUS TACHYCARDIA PROBABLE LEFT ATRIAL ABNORMALITY : Confirmed by: Maria E Khanna 11-May-2019 17:55:02
== END 2019-05-11 03:50 | disposition home or self-care (01) ==
LOC: ER 22:52
DX: S40.012A Contusion of left shoulder, initial encounter (principal); Y01.XXXA Assault by pushing from high place, initial encounter; Y92.008 Other place in unspecified non-institutional (private) residence as the place of occurrence of the external cause; F10.220 Alcohol dependence with intoxication, uncomplicated; G40.909 Epilepsy, unspecified, not intractable, without status epilepticus; T42.6X6A Underdosing of other antiepileptic and sedative-hypnotic drugs, initial encounter; Z91.128 Patient's intentional underdosing of medication regimen for other reason; Z91.14 Patient's other noncompliance with medication regimen; E87.6 Hypokalemia; F14.10 Cocaine abuse, uncomplicated; R00.0 Tachycardia, unspecified; R11.2 Nausea with vomiting, unspecified; F17.210 Nicotine dependence, cigarettes, uncomplicated; Z88.2 Allergy status to sulfonamides; Z88.5 Allergy status to narcotic agent
CPT/HCPCS: 36415; 80053; 80307; 81001; 81025; 85025; 93005; 93010; 99284

== ENCOUNTER 2019-05-17 17:50 | Emergency (ER) | payer SELFPAY ==
[2019-05-17] MEDS ORDERED: NORMAL SALINE 1000 ML 1,000 ML IV ONE ×2 (18:25→19:39)
[2019-05-17 18:27] LABS: APPEARANCE,URINE CLOUDY; BILIRUBIN,URINE SMALL (NEGATIVE); COLOR,URINE AMBER; GLUCOSE, URINE 50 mg/dL (NEGATIVE); KETONES,URINE TRACE mg/dL (NEGATIVE); LEUKOCYTE ESTERASE,URINE TRACE (NEGATIVE); NITRITE,URINE NEGATIVE (NEGATIVE); PROTEIN,URINE 100 mg/dL (NEGATIVE); URINE SPECIFIC GRAVITY 1.025
[2019-05-17 18:45] LABS: ABSOLUTE LYMPHOCYTES (AUTO) 1.4 10^3/uL (0.5-4.7); ABSOLUTE MONOCYTES (AUTO) 0.4 10^3/uL (0.1-1.4); ABSOLUTE NEUT (AUTO) 2.5 10^3/uL (1.7-8.2); BASOPHILS % (AUTO) 0.7 % (0-2); EOSINOPHILS % (AUTO) 0.2 % (0-6); HEMATOCRIT 33.8 % (36.0-47.0); HEMOGLOBIN 11.9 g/dL (12.0-15.5); LYMPHOCYTES % (AUTO) 32.8 % (13-45); MEAN CORPUSCULAR HEMOGLOBIN 30.2 pg (27.0-33.4); MEAN CORPUSCULAR HGB CONC 35.2 g/dL (32.0-36.0); MEAN CORPUSCULAR VOLUME 86 fl (80-97); MONOCYTES % (AUTO) 8.8 % (3-13); PLATELET COUNT 189 10^3/uL (150-450); RED BLOOD COUNT 3.94 10^6/uL (3.72-5.28); RED CELL DISTRIBUTION WIDTH 16.5 % (11.5-14.0); SEGMENTED NEUTROPHILS % (AUTO) 57.5 % (42-78); TOTAL CELLS COUNTED % (AUTO) 100 %; WHITE BLOOD COUNT 4.3 10^3/uL (4.0-10.5)
[2019-05-17 18:45] LABS: URINE AMPHETAMINES SCREEN NEGATIVE; URINE BARBITURATES SCREEN NEGATIVE; URINE BENZODIAZEPINES SCREEN UNCONFIRMED POSITIVE; URINE COCAINE SCREEN UNCONFIRMED POSITIVE; URINE MARIJUANA (THC) SCREEN NEGATIVE; URINE METHADONE SCREEN NEGATIVE; URINE PHENCYCLIDINE SCREEN NEGATIVE
[2019-05-17 19:06] LABS: ALBUMIN 3.6 g/dL (3.5-5.0); ALKALINE PHOSPHATASE 122 U/L (38-126); BILIRUBIN,DIRECT 0.7 mg/dL (0.0-0.4); BILIRUBIN,TOTAL 1.7 mg/dL (0.2-1.3); BLOOD UREA NITROGEN 41 mg/dL (7-20); CALCIUM 9.5 mg/dL (8.4-10.2); CHLORIDE 72 mmol/L (98-107); CREATINE KINASE 42 U/L (30-135); GLUCOSE 94 mg/dL (75-110); SODIUM 129.1 mmol/L (137-145); TOTAL PROTEIN 6.6 g/dL (6.3-8.2)
[2019-05-17 19:16] LABS: ALCOHOL < 10 mg/dL (NONE DETECTED); ANION GAP 11 (5-19)
[2019-05-17 19:17] LABS: POTASSIUM 2.5 mmol/L (3.6-5.0)
[2019-05-17 19:18] LABS: CARBON DIOXIDE 46 mmol/L (22-30)
[2019-05-17 19:24] LABS: ALANINE AMINOTRANSFERASE 2886 U/L (9-52); ASPARTATE AMINO TRANSFERASE 2409 U/L (14-36)
[2019-05-17 19:54] LABS: ACETAMINOPHEN < 10 ug/mL (10-30)
[2019-05-17] MEDS ORDERED: LEVETIRACETAM 500 MG/NACL-ISO 500 MG/100 ML RTUPB IV ONE ×2 (19:58→23:45)
[2019-05-17 20:04] LABS: ARTERIAL BLOOD BASE EXCESS 24.1 mmol/L; ARTERIAL BLOOD FIO2 ROOM AIR; ARTERIAL BLOOD H2CO3 2.03 mmol/L (1.05-1.35); ARTERIAL BLOOD HCO3 51.4 mmol/L (20-24); ARTERIAL BLOOD O2 SATURATION 95.7 % (94-98); ARTERIAL BLOOD PCO2 67.4 mmHg (35-45); ARTERIAL BLOOD PO2 76.3 mmHg (80-100); ARTERIAL BLOOD TOTAL CO2 53.4 mmol/L (21-25)
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
[2019-05-17] MEDS ORDERED: ACETYLCYSTEINE INJ 6000 MG/30 ML IV ONE ×3 (20:43→20:47)
--- NOTE | 2019-05-17 20:51 | RADIOLOGY REPORT (SQ) ---
EXAM DESCRIPTION: XR CHEST 1 VIEW COMPLETED DATE/TME: 05/17/2019 20:18 CLINICAL HISTORY: 33 years Female Hepatorenal failure, CO2 retention COMPARISON: None. FINDINGS: The cardiomediastinal silhouette appears unremarkable. No consolidating infiltrates or pleural effusions. No pneumothorax. IMPRESSION: No acute abnormality is identified.
--- NOTE | 2019-05-17 21:26 | EKG REPORT ---
SEVERITY:- ABNORMAL ECG - SINUS RHYTHM PROBABLE LEFT ATRIAL ABNORMALITY PROLONGED QT INTERVAL : Confirmed by: Becca Estrada MD 17-May-2019 21:25:18
--- NOTE | 2019-05-17 23:09 | RADIOLOGY REPORT (SQ) ---
CLINICAL HISTORY: central line placement COMPARISON: May 17, 2019. TECHNIQUE: XR CHEST 1 VIEW 05/17/2019 12:00 AM CDT FINDINGS: Cardiac silhouette is normal in size. Lungs are clear without consolidation, atelectasis, mass or edema. There is no pleural effusion. There is no pneumothorax. There are no acute osseous findings. Right IJ central line tip is in the lower SVC. IMPRESSION: No pneumothorax following right IJ central line placement.
--- NOTE | 2019-05-17 23:23 | RADIOLOGY REPORT (SQ) ---
CLINICAL HISTORY: Altered mental status COMPARISON: March 21, 2019. TECHNIQUE: CT HEAD WITHOUT IV CONTRAST on 05/17/2019 8:35 PM CDT This exam was performed according to our departmental dose-optimization program, which includes automated exposure control, adjustment of the mA and/or kV according to patient size and/or use of iterative reconstruction technique. FINDINGS: There is no acute hemorrhage, mass effect or midline shift. Huggins-white differentiation is preserved. There is no hydrocephalus. There is no significant volume loss for age. The calvarium is intact. Orbits and globes are unremarkable. The paranasal sinuses are clear. Mastoid air cells are clear. IMPRESSION: No acute intracranial findings.
[2019-05-17] MEDS: POTASSI CL 20 MEQ/50 ML RIDER 20 MEQ/50 ML RTUPB IV SCH (23:32)
[2019-05-17 23:42] LABS: INTERNATIONAL RATION (INR) 1.15; PROTHROMBIN TIME 14.8 SEC (11.4-15.4)
[2019-05-18] MEDS ORDERED: ACETYLCYSTEINE INJ 6000 MG/30 ML IV ONE (01:00)
[2019-05-18] MEDS ORDERED: NORMAL SALINE 1000 ML 1,000 ML IV ONE (01:13)
[2019-05-18] MEDS ORDERED: POTASSI CL 20 MEQ/50 ML RIDER 20 MEQ/50 ML RTUPB IV SCH (02:00)
[2019-05-18 02:22] VITALS: BP 112/72
[2019-05-18] MEDS: POTASSI CL 20 MEQ/50 ML RIDER 20 MEQ/50 ML RTUPB IV SCH (02:28)
== END 2019-05-18 02:50 | disposition short-term general hospital (02) ==
LOC: ER 17:50 → EEVIPCON 17:50 → ER 05-18 02:50
PROC: 05HM33Z Insertion of Infusion Device into Right Internal Jugular Vein, Percutaneous Approach (ICD-10-PCS; principal; 2019-05-17)
DX: I95.9 Hypotension, unspecified (principal); K76.7 Hepatorenal syndrome; E87.1 Hypo-osmolality and hyponatremia; E87.6 Hypokalemia; F14.10 Cocaine abuse, uncomplicated; F10.20 Alcohol dependence, uncomplicated; E87.4 Mixed disorder of acid-base balance; R41.0 Disorientation, unspecified; R47.81 Slurred speech; M54.9 Dorsalgia, unspecified; M25.512 Pain in left shoulder; F17.200 Nicotine dependence, unspecified, uncomplicated; Z91.14 Patient's other noncompliance with medication regimen
CPT/HCPCS: 93005; 36415; 80307 ×3; 82140; 82803; 82550; 83735; 84703; 85025; 85610; 80053; 81001; 83605; 71045; 70450; 93010; 36556; C1751; C1769; J3480 ×2; J0132 ×2; J7030 ×2; J1953

== ENCOUNTER 2019-06-25 12:54 | Emergency (ER) | payer SELFPAY ==
[2019-06-25] MEDS ORDERED: NORMAL SALINE 1000 ML 1,000 ML IV ONE (13:03)
--- NOTE | 2019-06-25 13:10 | ER Document Report ---
ED Medical Screen (RME) - General Chief Complaint: Flank Pain Stated Complaint: VOMITING Time Seen by Provider: 06/25/19 12:59 Primary Care Provider: GLENROY SOMERS MD [Primary Care Provider] - Follow up as needed Mode of Arrival: Ambulatory Information source: Patient Notes: Patient is a 33-year-old female with past medical history of severe alcoholism presenting to the emergency department chief complaint of bilateral flank pain. She reports that she has had a history of kidney failure in the past, states that she feels she may be in kidney failure again. She reports she has had dark-colored urine and burning with urination. She reports her last drink was this morning but states that she did not drink much due to vomiting. She denies any recent fevers or diarrhea. Of note she is asking for something for her nerves. Will defer on this until patient is seen in the back by another provider and labs are resulted. Exam: Lung sounds clear and equal bilaterally. No acute distress noted. No tremor noted. I have greeted and performed a rapid initial assessment of this patient. A comprehensive ED assessment and evaluation of the patient, analysis of test results and completion of the medical decision making process will be conducted by additional ED providers. I have specifically instructed the patient or family members with the patient to immediately return to any nursing staff should anything change in the patient's condition or with their chief complaint. This medical record was dictated with voice recognizing software. There may be grammatical, syntax errors that are unintended. TRAVEL OUTSIDE OF THE [place] IN LAST 30 DAYS: No - Related Data Allergies/Adverse Reactions: Sulfa (Sulfonamide Antibiotics) Allergy (Verified 06/25/19 12:55) tramadol [Tramadol] Allergy (Verified 06/25/19 12:55) Seizures Past Medical History - Social History Frequency of alcohol use: Heavy Drug Abuse: Cocaine Family history: Reviewed & Not Pertinent Neurological Medical History: Reports: Hx Seizures - non-compliant with antiepileptic medication Renal/ Medical History: Denies: Hx Peritoneal Dialysis Psychiatric Medical History: Reports: Hx Anxiety, Hx Attention Deficit Hyperactivity Disorder, Hx Bipolar Disorder, Hx Depression - with anxiety, PTSD Past Surgical History: Reports: Hx Abdominal Surgery, Hx Orthopedic Surgery - Immunizations Immunizations up to date: No Hx Diphtheria, Pertussis, Tetanus Vaccination: No Physical Exam - Vital signs Vitals: Temp Pulse Resp BP Pulse Ox 97.6 F 129 H 16 117/74 100 06/25/19 12:59 06/25/19 12:59 06/25/19 12:59 06/25/19 12:59 06/25/19 12:59 Course - Vital Signs Vital signs: Temp Pulse Resp BP Pulse Ox 97.6 F 129 H 16 117/74 100 06/25/19 12:59 06/25/19 12:59 06/25/19 12:59 06/25/19 12:59 06/25/19 12:59 Doctor's Discharge - Discharge Referrals: GLENROY SOMERS MD [Primary Care Provider] - Follow up as needed
[2019-06-25 13:34] LABS: ABSOLUTE BASOPHILS # (AUTO) 0.1 10^3/uL (0.0-0.2); ABSOLUTE LYMPHOCYTES (AUTO) 2.3 10^3/uL (0.5-4.7); ABSOLUTE MONOCYTES (AUTO) 0.2 10^3/uL (0.1-1.4); ABSOLUTE NEUT (AUTO) 3.3 10^3/uL (1.7-8.2); BASOPHILS % (AUTO) 1.3 % (0-2); EOSINOPHILS % (AUTO) 0.1 % (0-6); HEMATOCRIT 38.3 % (36.0-47.0); HEMOGLOBIN 13.4 g/dL (12.0-15.5); LYMPHOCYTES % (AUTO) 38.8 % (13-45); MEAN CORPUSCULAR HGB CONC 35.1 g/dL (32.0-36.0); MEAN CORPUSCULAR VOLUME 88 fl (80-97); MONOCYTES % (AUTO) 3.8 % (3-13); PLATELET COUNT 407 10^3/uL (150-450); RED BLOOD COUNT 4.33 10^6/uL (3.72-5.28); RED CELL DISTRIBUTION WIDTH 16.9 % (11.5-14.0); TOTAL CELLS COUNTED % (AUTO) 100 %; WHITE BLOOD COUNT 5.9 10^3/uL (4.0-10.5)
[2019-06-25 13:38] LABS: APPEARANCE,URINE CLEAR; BILIRUBIN,URINE NEGATIVE (NEGATIVE); COLOR,URINE YELLOW; GLUCOSE, URINE 50 mg/dL (NEGATIVE); KETONES,URINE 80 mg/dL (NEGATIVE); LEUKOCYTE ESTERASE,URINE NEGATIVE (NEGATIVE); NITRITE,URINE NEGATIVE (NEGATIVE); PROTEIN,URINE 100 mg/dL (NEGATIVE); URINE SPECIFIC GRAVITY 1.021
[2019-06-25 13:47] LABS: ALBUMIN 5.2 g/dL (3.5-5.0); ALCOHOL 49 mg/dL (NONE DETECTED); ALKALINE PHOSPHATASE 86 U/L (38-126); ASPARTATE AMINO TRANSFERASE 51 U/L (14-36); BILIRUBIN,DIRECT 0.3 mg/dL (0.0-0.4); BILIRUBIN,TOTAL 1.3 mg/dL (0.2-1.3); BLOOD UREA NITROGEN 15 mg/dL (7-20); CALCIUM 10.4 mg/dL (8.4-10.2); GLUCOSE 145 mg/dL (75-110); TOTAL PROTEIN 8.9 g/dL (6.3-8.2)
[2019-06-25 13:51] LABS: CARBON DIOXIDE 30 mmol/L (22-30); CHLORIDE 90 mmol/L (98-107)
[2019-06-25 13:53] LABS: ANION GAP 20 (5-19)
[2019-06-25 13:55] LABS: POTASSIUM 2.9 mmol/L (3.6-5.0)
[2019-06-25] MEDS: POTASSI CL 20 MEQ/50 ML RIDER 20 MEQ/50 ML RTUPB IV SCH ×3 (14:55→21:36)
[2019-06-25 15:08] LABS: URINE AMPHETAMINES SCREEN NEGATIVE; URINE BARBITURATES SCREEN NEGATIVE; URINE BENZODIAZEPINES SCREEN NEGATIVE; URINE COCAINE SCREEN UNCONFIRMED POSITIVE; URINE MARIJUANA (THC) SCREEN NEGATIVE; URINE METHADONE SCREEN NEGATIVE; URINE PHENCYCLIDINE SCREEN NEGATIVE
[2019-06-25] MEDS ORDERED: LORAZEPAM INJ 2 MG/1 ML VIAL IV ONE (15:18)
[2019-06-25] MEDS ORDERED: METOCLOPRAMIDE HCL INJ/PF 10 MG/2 ML SDV IV ONE (15:22)
[2019-06-25] MEDS ORDERED: PANTOPRAZOLE SODIUM 40 MG VIAL IV ONE (15:22)
[2019-06-25] MEDS ORDERED: POTASSIUM CHLORIDE 10 MEQ CAPSULE.ER PO ONE (17:01)
[2019-06-25] MEDS ORDERED: LORAZEPAM 0.5 MG TABLET PO ONE ×2 (19:31→21:04)
[2019-06-25] MEDS ORDERED: ONDANSETRON HCL INJ/PF 4 MG/2 ML SDV IV ONE (19:32)
[2019-06-25] MEDS ORDERED: LEVETIRACETAM 500 MG TABLET PO ONE (21:04)
--- NOTE | 2019-06-25 21:24 | ER Document Report ---
Entered by NINA MACIEL SCRIBE 06/25/19 1505 Acting as scribe for:TALAT MISHRA DO ED Substance Abuse / Acc. OD - General Chief Complaint: Flank Pain Stated Complaint: VOMITING Time Seen by Provider: 06/25/19 12:59 Primary Care Provider: GLENROY SOMERS MD [NO LOCAL MD] - Follow up as needed Mode of Arrival: Ambulatory Information source: Patient Notes: Patient is a 33-year-old female that presents to the emergency department today for a referral to rehab for EtOH abuse. Patient states she has been vomiting for the last several days and intermittently has noticed blood streaks in the vomit. Patient's chart indicates she also has admitted to cocaine abuse. Patient requesting "something for her nerves" as she states she is beginning to feel anxious. TRAVEL OUTSIDE OF THE [place] IN LAST 30 DAYS: No - Related Data Allergies/Adverse Reactions: Sulfa (Sulfonamide Antibiotics) Allergy (Verified 06/25/19 12:55) tramadol [Tramadol] Allergy (Verified 06/25/19 12:55) Seizures Past Medical History - General Information source: Patient - Social History Smoking Status: Current Every Day Smoker Cigarette use (# per day): Yes Frequency of alcohol use: Heavy Drug Abuse: Cocaine Lives with: Family Family History: Arthritis, CAD, COPD, CVA, DM, Hyperlipidemia, Hypertension Patient has suicidal ideation: No Patient has homicidal ideation: No Neurological Medical History: Reports: Hx Seizures - non-compliant with antiepileptic medication Psychiatric Medical History: Reports: Hx Anxiety, Hx Attention Deficit Hyperactivity Disorder, Hx Bipolar Disorder, Hx Depression - with anxiety, PTSD Past Surgical History: Reports: Hx Abdominal Surgery, Hx Orthopedic Surgery - Immunizations Immunizations up to date: No Hx Diphtheria, Pertussis, Tetanus Vaccination: No Review of Systems - Review of Systems Constitutional: See HPI, Other - EtOH abuse EENT: No symptoms reported Cardiovascular: No symptoms reported Respiratory: No symptoms reported Gastrointestinal: See HPI, Vomiting Genitourinary: No symptoms reported Female Genitourinary: No symptoms reported Musculoskeletal: No symptoms reported Skin: No symptoms reported Hematologic/Lymphatic: No symptoms reported Neurological/Psychological: See HPI, Anxiety -: Yes All other systems reviewed and negative Physical Exam - Vital signs Vitals: Temp Pulse Resp BP Pulse Ox 97.6 F 129 H 16 117/74 100 06/25/19 12:59 06/25/19 12:59 06/25/19 12:59 06/25/19 12:59 06/25/19 12:59 Interpretation: Normal - General General appearance: Appears well, Alert - HEENT Head: Normocephalic, Atraumatic Eyes: Normal Pupils: PERRL - Respiratory Respiratory status: No respiratory distress Chest status: Nontender Breath sounds: Normal Chest palpation: Normal - Cardiovascular Rhythm: Regular, Tachycardia Heart sounds: Normal auscultation Murmur: No - Abdominal Inspection: Normal Distension: No distension Bowel sounds: Normal Tenderness: Nontender Organomegaly: No organomegaly - Back Back: Normal, Nontender - Extremities General upper extremity: Normal inspection, Nontender, Normal color, Normal ROM, Normal temperature General lower extremity: Normal inspection, Nontender, Normal color, Normal ROM, Normal temperature, Normal weight bearing. No: Danilo's sign - Neurological Neuro grossly intact: Yes Cognition: Normal Orientation: AAOx4 Rumson Coma Scale Eye Opening: Spontaneous Rumson Coma Scale Verbal: Oriented Justin Coma Scale Motor: Obeys Commands Justin Coma Scale Total: 15 Speech: Normal Motor strength normal: LUE, RUE, LLE, RLE Sensory: Normal - Psychological Associated symptoms: Anxious - Skin Skin Temperature: Warm Skin Moisture: Dry Skin Color: Normal Course - Re-evaluation Re-evalutation: 06/25/19 21:22 Patient is a 33-year-old female who presents with vomiting. Patient is a history of alcohol abuse and withdrawal. She is tachycardic. Patient also admits to cocaine use. Tox screen positive for cocaine. Alcohol 49. Patient is requesting help with detox as well. Mental health services has seen the patient and discussed her with [facility] who will hold a bed for her and try to find her placement for detox. Patient has received Ativan she says for her nerves. No evidence for alcohol withdrawal. Tachycardia likely due to cocaine use. Patient is not been hypertensive. She is feeling better. She is eating and drinking. No further nausea or vomiting. Potassium has been replaced orally and also by IV for a total of 80 mEq. Patient is requesting to be discharged so she can go to [facility]. She has a arranged a ride for transportation. Stable for discharge. Return if any further concerns or symptoms. - Vital Signs Vital signs: Temp Pulse Resp BP Pulse Ox 97.6 F 129 H 16 117/74 100 06/25/19 12:59 06/25/19 12:59 06/25/19 12:59 06/25/19 12:59 06/25/19 12:59 - Laboratory Result Diagrams: 06/25/19 13:06 06/25/19 13:06 Laboratory results interpreted by me: 06/25/19 06/25/19 06/25/19 13:06 13:06 13:06 RDW 16.9 H Potassium 2.9 L* Chloride 90 L Anion Gap 20 H Glucose 145 H Calcium 10.4 H AST 51 H Total Protein 8.9 H Albumin 5.2 H Urine Protein 100 H Urine Glucose (UA) 50 H Urine Ketones 80 H Urine Urobilinogen 2.0 H Critical Care Note - Critical Care Note Total time excluding time spent on procedures (mins): 60 - Evaluation and management of tachycardia, possible withdrawal, vomiting, multiple re- evaluations, coordination with mental health services, coordination of rehabilitation, counseling of patient, multiple re-evaluations Discharge - Discharge Clinical Impression: Hypokalemia, Alcohol abuse, Cocaine abuse Vomiting Qualifiers: Vomiting type: unspecified Vomiting Intractability: non-intractable Nausea presence: with nausea Qualified Code(s): R11.2 - Nausea with vomiting, un specified Condition: Stable Disposition: OTHER Instructions: Cocaine Abuse ([facility]), Chronic Alcoholism ([facility]) Additional Instructions: Please go directly to [facility]. They are holding a bed for you there to help with detox. Referrals: GLENROY SOMERS MD [NO LOCAL MD] - Follow up as needed Scribe Attestation: 06/25/19 21:22 I personally performed the services described in the documentation, reviewed and edited the documentation which was dictated to the scribe in my presence, and it accurately records my words and actions. I personally performed the services described in the documentation, reviewed and edited the documentation which was dictated to the scribe in my presence, and it accurately records my words and actions.
[2019-06-25 21:36] VITALS: BP 106/76
--- NOTE | 2019-06-26 11:32 | EKG REPORT ---
SEVERITY:- BORDERLINE ECG - SINUS TACHYCARDIA BORDERLINE T WAVE ABNORMALITIES : Confirmed by: Maria E Khanna 26-Jun-2019 11:31:12
== END 2019-06-25 21:51 | disposition other institution (70) ==
LOC: ER 12:54
DX: F10.10 Alcohol abuse, uncomplicated (principal); K92.0 Hematemesis; F14.10 Cocaine abuse, uncomplicated; E87.6 Hypokalemia; F41.9 Anxiety disorder, unspecified; R00.0 Tachycardia, unspecified; F17.210 Nicotine dependence, cigarettes, uncomplicated; Z88.2 Allergy status to sulfonamides; Z88.5 Allergy status to narcotic agent
CPT/HCPCS: 93005; 99285; 96361; 96375; 96365; 96366; 36415; 80307 ×2; 83735; 85025; 81025; 80053; 81001; 93010; J2765; J2060; S0164; J2405; J3480; J7030

== ENCOUNTER 2019-08-21 15:07 | Emergency (ER) | payer SELFPAY ==
[2019-08-21 15:11] VITALS: BP 128/78
[2019-08-21] MEDS ORDERED: LIDOCAINE 2% VISCOUS SOLN 20 ML UDCUP PO ONE (15:29)
--- NOTE | 2019-08-21 15:42 | ER Document Report ---
HPI - HPI Time Seen by Provider: 08/21/19 15:29 Pain Level: 5 Notes: Patient is a 33-year-old female with a history of poor dentition who presents complaining of dental pain to #6 as well as #17 that has been ongoing for the past week. Patient states that she has not noticed any obvious abscess or facial swelling. She is still able to eat and drink without difficulty otherwise. She is urinating normally. No other concerns or complaints. Denies any headache, fever, neck pain, URI, sore throat, chest pain, palpitations, syncope, cough, shortness of breath, wheeze, dyspnea, abdominal pain, nausea/vomiting/diarrhea, urinary retention, dysuria, hematuria, or rash. - ROS Systems Reviewed and Negative: Yes All other systems reviewed and negative - REPRODUCTIVE Reproductive: DENIES: : Past Medical History - Social History Smoking Status: Current Every Day Smoker Chew tobacco use (# tins/day): No Frequency of alcohol use: None Drug Abuse: None Family History: Arthritis, CAD, COPD, CVA, DM, Hyperlipidemia, Hypertension Patient has suicidal ideation: No Patient has homicidal ideation: No Neurological Medical History: Reports: Hx Seizures - non-compliant with antiepileptic medication Renal/ Medical History: Denies: Hx Peritoneal Dialysis Psychiatric Medical History: Reports: Hx Anxiety, Hx Attention Deficit Hyperactivity Disorder, Hx Bipolar Disorder, Hx Depression - with anxiety, PTSD Past Surgical History: Reports: Hx Abdominal Surgery, Hx Orthopedic Surgery - Immunizations Immunizations up to date: No Hx Diphtheria, Pertussis, Tetanus Vaccination: No Vertical Provider Document - CONSTITUTIONAL Agree With Documented VS: Yes Notes: PHYSICAL EXAMINATION: GENERAL: Well-appearing, well-nourished and in no acute distress. HEAD: Atraumatic, normocephalic. EYES: Pupils equal round and reactive to light, extraocular movements intact, sclera anicteric, conjunctiva are normal. ENT: EAC clear b/l. TM's intact b/l without erythema, fluid, or perforation. Nares patent and without discharge. oropharynx clear without exudates. No tonsilar hypertrophy or erythema. Moist mucous membranes. No sinus tenderness. Uvula midline. No palatine shift. No tongue protrusion. No respiratory compromise. Mouth: Poor dentition. + severe decay and mild gingivitis throughout. No obvious abscess or discharge noted. No facial swelling. + tenderness to tooth #6/17. NECK: Normal range of motion, supple without lymphadenopathy. No rigidity/meningismus. LUNGS: Breath sounds clear to auscultation bilaterally and equal. No wheezes rales or rhonchi. HEART: Regular rate and rhythm without murmurs, rubs, gallops. NEUROLOGICAL: Cranial nerves grossly intact. Normal speech, normal gait. PSYCH: Normal mood, normal affect. SKIN: Warm, Dry, normal turgor, no rashes or lesions noted. - INFECTION CONTROL TRAVEL OUTSIDE OF THE [place] IN LAST 30 DAYS: No Course - Re-evaluation Re-evalutation: 08/21/19 15:40 Patient is an afebrile, well-hydrated, 33-year-old female who presents to the ED with dental pain, suspect nerve root etiology versus infection. Vitals are acceptable. PE is otherwise unremarkable. No I&D, labs, or imaging warranted at this time based on H&P. Viscous lidocaine dispensed today. I will send him home with a prescription for penicillin. Low suspicion for any meningitis, sepsis, peritonsillar/pharyngeal abscess, respiratory compromise, Madan's, te mporal arteritis, or other emergent systemic condition at this time. Patient is aware this condition can change from initial presentation and he needs to monitor symptoms closely. Conservative measures otherwise for symptoms. Call to schedule an appointment with a dentist for further evaluation and management. Recheck with your PCM this week as well. Return to the ED with any worsening/concerning symptoms otherwise as reviewed in discharge. Patient is in agreement. - Vital Signs Vital signs: Temp Pulse Resp BP Pulse Ox 98.0 F 109 H 16 128/78 H 100 08/21/19 15:10 08/21/19 15:10 08/21/19 15:10 08/21/19 15:10 08/21/19 15:10 Discharge - Discharge Clinical Impression: Pain, dental Condition: Stable Disposition: HOME, SELF-CARE Instructions: Penicillin V K ([facility]), Toothache ([facility]) Additional Instructions: Lutcher and floss twice daily Maintain fluid intake Take antibiotics as directed Mouthwash, salt water gargles, peroxide rinse as needed Tylenol/ibuprofen as needed Recheck with PCM this week Call today/tomorrow and schedule an appointment with your dentist for further evaluation Return to the ED with any worsening symptoms and/or development of fever, headache, facial swelling, swelling of lips/tongue/throat, trouble swallowing, drooling, hoarseness, neck pain/stiffness, chest pain, palpitations, syncope, shortness of breath, trouble breathing, abdominal pain, n/v/d, numbness/tingling, or other worsening symptoms that are concerning to you. Prescriptions: Penicillin V Potassium [Penicillin Vk 250 mg Tablet] 500 mg PO BID #40 tablet Forms: Elevated Blood Pressure, Smoking Cessation Education Referrals: [facility] [Provider Group] - Follow up in 1 week
== END 2019-08-21 15:54 | disposition home or self-care (01) ==
LOC: ER 15:07
DX: K02.9 Dental caries, unspecified (principal); K05.10 Chronic gingivitis, plaque induced; K08.89 Other specified disorders of teeth and supporting structures; F17.200 Nicotine dependence, unspecified, uncomplicated
CPT/HCPCS: 99282; J3490

== ENCOUNTER 2019-09-17 21:55 | Emergency (ER) | payer SELFPAY ==
[2019-09-17] MEDS ORDERED: NORMAL SALINE 1000 ML 1,000 ML IV ONE (22:17)
--- NOTE | 2019-09-17 22:21 | ER Document Report ---
ED Substance Abuse / Acc. OD - General Stated Complaint: ALTERED MENTAL STATUS Time Seen by Provider: 09/17/19 22:06 Primary Care Provider: [facility] [Provider Group] - Follow up as needed Notes: Patient is a 33-year-old female that comes emergency department via EMS from her parents house for chief complaint of suspected overdose. Patient was staying at her parents house tonight, reportedly she was planning on and discussing detox for history of alcohol and substance abuse, parents state that they found her on the couch and they could not wake her up. EMS states that she was not hypoxic, not febrile, initial respirations were 7 so they gave 0.5 mg of intranasal narcan. After this respirations did increase to approximately 18-20 reportedly. No other history is given, no daily medications reported. Patient is unable to answer any questions. Parents are not here yet. TRAVEL OUTSIDE OF THE [place] IN LAST 30 DAYS: No - Related Data Allergies/Adverse Reactions: Sulfa (Sulfonamide Antibiotics) Allergy (Verified 08/21/19 15:39) tramadol [Tramadol] Allergy (Verified 08/21/19 15:39) Seizures Past Medical History - General Information source: Emergency Med Personnel - Social History Smoking Status: Unknown if Ever Smoked Frequency of alcohol use: Heavy Lives with: Friend Family History: Arthritis, CAD, COPD, CVA, DM, Hyperlipidemia, Hypertension Neurological Medical History: Reports: Hx Seizures - non-compliant with antiepileptic medication Renal/ Medical History: Denies: Hx Peritoneal Dialysis Psychiatric Medical History: Reports: Hx Anxiety, Hx Attention Deficit Hyperactivity Disorder, Hx Bipolar Disorder, Hx Depression - with anxiety, PTSD Past Surgical History: Reports: Hx Abdominal Surgery, Hx Orthopedic Surgery - Immunizations Immunizations up to date: No Hx Diphtheria, Pertussis, Tetanus Vaccination: No Review of Systems - Review of Systems Constitutional: No symptoms reported EENT: No symptoms reported Cardiovascular: See HPI Respiratory: See HPI Gastrointestinal: No symptoms reported Genitourinary: No symptoms reported Female Genitourinary: No symptoms reported Musculoskeletal: No symptoms reported Skin: No symptoms reported Hematologic/Lymphatic: No symptoms reported Neurological/Psychological: See HPI Physical Exam - Vital signs Vitals: Resp Pulse Ox 17 100 09/17/19 22:04 09/17/19 22:04 - Notes Notes: GENERAL: Sleeping soundly and very difficult to arouse, not responding to questions or verbal stimuli HEAD: Normocephalic, atraumatic. EYES: Pupils slightly constricted bilaterally, responsive. Extraocular movements intact. ENT: Oral mucosa moist, tongue midline. Oropharynx unremarkable. Airway patent. Nares patent, no nasal septal hematoma, TM's intact. NECK: Full range of motion. Supple. Trachea midline. LUNGS: Clear to auscultation bilaterally, no wheezes, rales, or rhonchi. No respiratory distress. HEART: Regular rate and rhythm. No murmur ABDOMEN: Soft, non-tender. Non-distended. EXTREMITIES: Moves all 4 extremities spontaneously. No edema, normal radial and dorsalis pedis pulses bilaterally. No cyanosis. BACK: no cervical, thoracic, lumbar midline tenderness. No saddle anesthesia, normal distal neurovascular exam. NEUROLOGICAL: Alert and oriented x3. Normal speech. Cranial nerves II through XII grossly intact. PSYCH: Normal affect, normal mood. SKIN: There is some old bruising noted to both mid breasts over the anterior chest wall, no induration or fluctuance of the area, examination was performed with Joyce DIAS at bedside. Course - Re-evaluation Re-evalutation: 09/17/19 22:24 Patient is breathing 20 times a minute, oxygen saturation between 97 and 100% on room air, blood pressure in the mid 90s systolic, she is not febrile. Patient with constricted pupils, I do suspect opiates. She has old bruises over the chest, physical examination unremarkable otherwise. She does respond to sternal rub. GCS is currently 8, she does withdraw and localize to pain. Dr. Reese did evaluate the patient at bedside, she does continue to withdraw and respond to pain, she is breathing well, she is not apneic or hypoxic, patient will be given IV fluids, work-up pending, she will be closely monitored at this time. 09/17/19 23:00 Mother and her boyfriend did come to bedside. They state that patient had come to them and was having a conversation with them discussing entering detox, they states she has a long history of alcohol abuse and also has a history of substance abuse as well. She has used substance such as heroin in the past reportedly. They state that she went outside to smoke a cigarette, came back again, started slurring her words and then passed out. She did not fall, they caught her, they state that when they could not arouse her they called EMS. She does have a history of alcohol withdrawals in the past as well, mom states she has had a seizure recently related to alcohol as well. 09/18/19 05:09 Patient is now much more arousable, responds to verbal stimuli. She is still slurring her words and has difficulty staying awake however. She will require more time. Continuing to monitor. Plan is to allow patient to sober up, then she will have a discussion about whether or not she needs psychiatric evaluation, detox, or discharge with warnings for recreational substance abuse. Patient has been discussed with Dr. Reese. 09/18/19 06:06 Patient is still arousable and is answering questions but she states she cannot remember what happened last night, she states she is not sure what she wants, she states she cannot think clearly, she is still very sluggish difficult to get any answers out of. 09/18/19 07:33 Patient is much more communicative now. She states that she did drink alcohol and I explained that she appears to have taken something along with alcohol to make her very sedated, she states she agrees with this but she will not tell me what this was. She states she was doing this recreationally, she denies SI or HI. She states she is not depressed or suicidal, she states she just wants to be discharged home. I explained that she has been discussing with her mom detox and I recommended and asked if she was interested in detox, she states she does not want to undergo detox at this time. She states she also notes were to follow-up if she changes her mind. She states she wants to be discharged home. Patient is requesting we call for a ride home. 09/18/19 08:05 I called and spoke with mom. She states she will not cherry picker operator the patient and that patient was saying she is suicidal. She wants her placed on IVC and placed in Detox. I discussed with Dr. Preston. Patient is denying SI, HI, or desire for Detox. She states she took the alcohol and drugs recreationally. She stated "if I don't want Detox then this isn't going to work". I spoke with Dr. Preston and she still does not meet IVC criteria. Mom asked to speak with Dr. Preston and he did speak with her on the phone. 09/18/19 08:19 Dr. Preston did speak with the patient's mother and mid conversation the mother did hang up on Dr. Preston after he attempted to explain the situation. We cannot legally hold the patient because she is not suicidal, homicidal, does not have signs of harming herself last night, and declines detox or further intervention. Patient is also not psychotic, she is calm, cooperative, and clear with her statements. - Vital Signs Vital signs: Temp Pulse Resp BP Pulse Ox 97.9 F 20 99/60 L 96 09/18/19 07:36 09/18/19 07:36 09/18/19 07:36 09/18/19 07:35 - Laboratory Result Diagrams: 09/17/19 23:40 09/17/19 23:40 Laboratory results interpreted by me: 09/17/19 09/17/19 23:40 23:40 RDW 14.6 H Seg Neuts % (Manual) 29 L Lymphocytes % (Manual) 65 H Monocytes % (Manual) 1 L Abs Lymphs (Manual) 4.8 H Sodium 152.2 H Potassium 3.1 L Chloride 112 H Salicylates < 1.0 L Acetaminophen < 10 L Discharge - Discharge Clinical Impression: Substance abuse Alcohol dependence Qualifiers: Substance use status: unspecified alcohol-induced disorder Qualified Code(s): F10.29 - Alcohol dependence with unspecified alcohol-induced disorder Condition: Stable Disposition: HOME, SELF-CARE Additional Instructions: Your evaluation indicates alcohol intoxication and it appears you ingested something with the alcohol that made you very sedated. Avoid any recreational substances, do not combine sedating medication for alcohol, this is extremely lethal. You have declined detox at this time, please follow-up with the listed referral for this. Your potassium was low, this was supplemented tonight, have this rechecked by primary care, increase potassium in your diet. Return to the emergency department for any concerning symptoms or if something is not right. Referrals: [facility] [Provider Group] - Follow up as needed
[2019-09-17 23:41] LABS: APPEARANCE,URINE SLIGHTLY-CLOUDY; BILIRUBIN,URINE NEGATIVE (NEGATIVE); COLOR,URINE STRAW; GLUCOSE, URINE NEGATIVE (NEGATIVE); KETONES,URINE NEGATIVE (NEGATIVE); LEUKOCYTE ESTERASE,URINE NEGATIVE (NEGATIVE); NITRITE,URINE NEGATIVE (NEGATIVE); PROTEIN,URINE NEGATIVE (NEGATIVE); URINE SPECIFIC GRAVITY 1.004; UROBILINOGEN,URINE NEGATIVE mg/dL (<2.0)
[2019-09-17 23:54] LABS: URINE AMPHETAMINES SCREEN UNCONFIRMED POSITIVE; URINE BARBITURATES SCREEN NEGATIVE; URINE BENZODIAZEPINES SCREEN NEGATIVE; URINE COCAINE SCREEN NEGATIVE; URINE MARIJUANA (THC) SCREEN NEGATIVE; URINE METHADONE SCREEN NEGATIVE; URINE PHENCYCLIDINE SCREEN NEGATIVE
[2019-09-17 23:59] LABS: HEMATOCRIT 43.6 % (36.0-47.0); HEMOGLOBIN 14.6 g/dL (12.0-15.5); MEAN CORPUSCULAR HEMOGLOBIN 29.5 pg (27.0-33.4); MEAN CORPUSCULAR HGB CONC 33.5 g/dL (32.0-36.0); MEAN CORPUSCULAR VOLUME 88 fl (80-97); PLATELET COUNT 398 10^3/uL (150-450); RED BLOOD COUNT 4.96 10^6/uL (3.72-5.28); RED CELL DISTRIBUTION WIDTH 14.6 % (11.5-14.0); WHITE BLOOD COUNT 6.9 10^3/uL (4.0-10.5)
--- NOTE | 2019-09-18 00:07 | RADIOLOGY REPORT (SQ) ---
XR CHEST 1 VIEW EXAM DATE: 09/17/2019 10:17 PM COMMUNICATIONS EXECUTIVE HISTORY: Unresponsive. COMPARISON: 05/17/2019 FINDINGS: The heart size is within normal limits. No consolidation, pleural effusion, or pneumothorax is seen. No acute bony findings. IMPRESSION: No acute cardiopulmonary disease.
[2019-09-18 00:09] LABS: ALCOHOL 226 mg/dL (NONE DETECTED); ALKALINE PHOSPHATASE 73 U/L (38-126); ANION GAP 16 (5-19); ASPARTATE AMINO TRANSFERASE 31 U/L (14-36); BILIRUBIN,DIRECT 0.2 mg/dL (0.0-0.4); BILIRUBIN,TOTAL 0.4 mg/dL (0.2-1.3); BLOOD UREA NITROGEN 13 mg/dL (7-20); CALCIUM 9.1 mg/dL (8.4-10.2); CARBON DIOXIDE 24 mmol/L (22-30); CHLORIDE 112 mmol/L (98-107); GLUCOSE 81 mg/dL (75-110); POTASSIUM 3.1 mmol/L (3.6-5.0); TOTAL PROTEIN 7.8 g/dL (6.3-8.2)
[2019-09-18 00:13] LABS: ACETAMINOPHEN < 10 ug/mL (10-30); SALICYLATE < 1.0 mg/dL (2.0-20.0)
[2019-09-18 00:19] LABS: ABSOLUTE LYMPHOCYTES# (MANUAL) 4.8 10^3/uL (0.5-4.7); ABSOLUTE MONOCYTES # (MANUAL) 0.1 10^3/uL (0.1-1.4); ANISOCYTOSIS SLIGHT; BASOPHILS % (MANUAL) 1 % (0-2); EOSINOPHILS % (MANUAL) 0 % (0-6); MONOCYTES % (MANUAL) 1 % (3-13); SEGMENTED NEUTROPHILS % (MAN) 29 % (42-78); TOTAL CELLS COUNTED 100
[2019-09-18 00:20] LABS: PLATELET COMMENT ADEQUATE
[2019-09-18 00:21] LABS: LYMPHOCYTES % (MANUAL) 65 % (13-45)
[2019-09-18] MEDS ORDERED: NORMAL SALINE 500 ML IV ONE (01:03)
[2019-09-18] MEDS ORDERED: POTASSIUM CHLORIDE 10 MEQ CAPSULE.ER PO ONE (05:31)
[2019-09-18 07:58] VITALS: BP 99/60
--- NOTE | 2019-09-18 23:17 | EKG REPORT ---
SEVERITY:- BORDERLINE ECG - SINUS RHYTHM BORDERLINE T ABNORMALITIES, ANT-LAT LEADS BORDERLINE PROLONGED QT INTERVAL : Confirmed by: Maria E Khanna 18-Sep-2019 23:16:29
== END 2019-09-18 08:35 | disposition home or self-care (01) ==
LOC: ER 21:55
DX: F19.10 Other psychoactive substance abuse, uncomplicated (principal); F10.29 Alcohol dependence with unspecified alcohol-induced disorder; R41.82 Altered mental status, unspecified; Z88.2 Allergy status to sulfonamides; Z88.6 Allergy status to analgesic agent
CPT/HCPCS: 93005; 36415; 80307 ×4; 83735; 84703; 85025; 80053; 81001; 71045; 93010; J7030; J7040

== ENCOUNTER 2019-09-18 16:13 | Emergency (ER) | payer SELFPAY ==
[2019-09-18 17:27] LABS: ABSOLUTE BASOPHILS # (AUTO) 0.1 10^3/uL (0.0-0.2); ABSOLUTE LYMPHOCYTES (AUTO) 4.7 10^3/uL (0.5-4.7); ABSOLUTE MONOCYTES (AUTO) 0.4 10^3/uL (0.1-1.4); ABSOLUTE NEUT (AUTO) 4.3 10^3/uL (1.7-8.2); BASOPHILS % (AUTO) 0.8 % (0-2); EOSINOPHILS % (AUTO) 0.2 % (0-6); HEMATOCRIT 35.9 % (36.0-47.0); LYMPHOCYTES % (AUTO) 49.3 % (13-45); MEAN CORPUSCULAR HEMOGLOBIN 29.5 pg (27.0-33.4); MEAN CORPUSCULAR HGB CONC 34.1 g/dL (32.0-36.0); MEAN CORPUSCULAR VOLUME 86 fl (80-97); MONOCYTES % (AUTO) 3.9 % (3-13); PLATELET COUNT 408 10^3/uL (150-450); RED BLOOD COUNT 4.15 10^6/uL (3.72-5.28); RED CELL DISTRIBUTION WIDTH 14.3 % (11.5-14.0); SEGMENTED NEUTROPHILS % (AUTO) 45.8 % (42-78); TOTAL CELLS COUNTED % (AUTO) 100 %; WHITE BLOOD COUNT 9.5 10^3/uL (4.0-10.5)
[2019-09-18 17:28] LABS: HEMOGLOBIN 12.2 g/dL (12.0-15.5)
[2019-09-18 17:32] LABS: ALBUMIN 3.5 g/dL (3.5-5.0); ALKALINE PHOSPHATASE 75 U/L (38-126); ANION GAP 11 (5-19); ASPARTATE AMINO TRANSFERASE 30 U/L (14-36); BILIRUBIN,DIRECT 0.1 mg/dL (0.0-0.4); BILIRUBIN,TOTAL 0.4 mg/dL (0.2-1.3); BLOOD UREA NITROGEN 13 mg/dL (7-20); CALCIUM 8.5 mg/dL (8.4-10.2); CARBON DIOXIDE 25 mmol/L (22-30); CHLORIDE 106 mmol/L (98-107); GLUCOSE 92 mg/dL (75-110); POTASSIUM 3.3 mmol/L (3.6-5.0); TOTAL PROTEIN 6.8 g/dL (6.3-8.2)
[2019-09-18] MEDS ORDERED: NALOXONE HCL INJ/PF 0.4 MG/1 ML SDV ONE (17:33)
[2019-09-18] MEDS ORDERED: RINGERS SOLUTION,LACTATED 1,000 ML IV ONE (17:33)
--- NOTE | 2019-09-18 17:38 | ER Document Report ---
ED General - General Chief Complaint: Unresponsive Stated Complaint: ALTERED MENTAL STATUS Time Seen by Provider: 09/18/19 17:03 Notes: 33-year-old female brought to the emergency department for unresponsiveness and possible overdose. Mother apparently found her unresponsive and called EMS. EMS also found her unresponsive but did not give any medications as she was stable. Patient was apparently discharged from this emergency department at approximately 7 AM this morning after prior overdose. Patient repeatedly denied suicidal or homicidal ideation on her prior visit. Was offered detox and rehab and refused. Patient currently gives absolutely no history and no family is here. TRAVEL OUTSIDE OF THE [place] IN LAST 30 DAYS: No - Related Data Allergies/Adverse Reactions: Sulfa (Sulfonamide Antibiotics) Allergy (Verified 08/21/19 15:39) tramadol [Tramadol] Allergy (Verified 08/21/19 15:39) Seizures Past Medical History - General Information source: Emergency Med Personnel, [facility], [facility]–1983 Records Cannot obtain history due to: Altered mental status - Social History Smoking Status: Current Every Day Smoker Frequency of alcohol use: Heavy Family History: Arthritis, CAD, COPD, CVA, DM, Hyperlipidemia, Hypertension Patient has suicidal ideation: No Patient has homicidal ideation: No Neurological Medical History: Reports: Hx Seizures - non-compliant with antiepileptic medication Renal/ Medical History: Denies: Hx Peritoneal Dialysis Psychiatric Medical History: Reports: Hx Anxiety, Hx Attention Deficit Hyperactivity Disorder, Hx Bipolar Disorder, Hx Depression - with anxiety, PTSD Past Surgical History: Reports: Hx Abdominal Surgery, Hx Orthopedic Surgery - Immunizations Immunizations up to date: No Hx Diphtheria, Pertussis, Tetanus Vaccination: No Review of Systems - Review of Systems -: Yes ROS unobtainable due to patient's medical condition - Patient unresponsive. GCS 9. Physical Exam - Vital signs Vitals: Temp Pulse Resp BP Pulse Ox 98 F 111 H 19 111/69 98 09/18/19 16:15 09/18/19 16:15 09/18/19 16:15 09/18/19 16:15 09/18/19 16:15 Interpretation: Tachycardic - Notes Notes: GENERAL: Laying in bed, snoring, awakens only to sternal rub and on with her painful stimuli, briefly opens her eyes, groans and occasionally says hey and then goes back to sleep. HEAD: Normocephalic, atraumatic EYES: Pupils equal, round and reactive to light, extraocular movements intact when she looks around after sternal rub. ENT: Oral mucosa moist, tongue midline. NECK: Full range of motion, supple, trachea midline. LUNGS: Clear to auscultation bilaterally, no wheezes, rales or rhonchi, no respiratory distress. HEART: Tachycardic rate and rhythm, no murmurs, gallops, rubs. ABDOMEN: Soft, nontender, nondistended, bowel sounds present in all 4 quadrants. EXTREMITIES: Moves all 4 extremities spontaneously only during painful stimuli, no edema, radial and dorsalis pedis pulses 2/4 bilaterally. No cyanosis. NEUROLOGICAL: GCS 9, no facial droop. SKIN: Warm, Dry, normal turgor, no rashes or lesions noted. - Neurological Justin Coma Scale Eye Opening: To Pain Justin Coma Scale Verbal: Incomprehensible [place] Coma Scale Motor: Localizes to Pain Justin Coma Scale Total: 9 Course - Re-evaluation Re-evalutation: 09/18/19 20:08 CBC unremarkable, CMP improved, sodium normalized, potassium improving, test negative, patient waking up slowly. Spoke with mother with patient's permission and mother states that the patient has frequent history of drug and alcohol use and lives down the street with a drug user and drug dealer. Mother states that patient is not allowed to live with her while she is using drugs or alcohol. Mother states that she has had the patient go to [facility] crisis center before without success. Patient currently refuses to go to rehab when mother requests this. Mother states that she is an epileptic, mother states that she controls the patient's medications, patient comes to her house every day to get her Keppra and then leaves. Mother states that the patient has told her that she is suicidal however patient has not been willing to confirm today's statements here. I will discuss this with the patient again. Recommended to mother that if she has heard the patient say she is suicidal she needs to go to the chemical cell changer's office to have involuntary commitment paperwork filled out based off of hearing the statements. Mother is unable to describe the situation in which the patient has had suicidal ideation or that the patient has a plan. Mother states that she would like the patient to be declared incompetent and placed to long-term rehab. Discussed with mother that this is not possible from the emergency department. Discussed with mother that she will need to follow- up as an outpatient to see about having the patient declared incompetent. Based off of my brief interactions patient does not meet criteria to be declared incompetent. 09/18/19 20:20 Mother now states that the patient today told her that she was going to go an overdose and kill herself so her mother would get blamed so that her mother would feel guilty over not allowing her to stay with her while using drugs. Based off of this I will fill out a 24-hour hold and have behavioral health see her in the morning. 09/18/19 23:04 Patient now wide awake, neurologically intact, tachycardic but otherwise exam is unremarkable, oriented to person place and time, no focal neurologic deficits. Discussed with her my concerns that her decreased level of consciousness came from drugs. Discussed with her that she has been temporarily involuntarily committed for 24 hours, patient will be seen by behavioral health in the [facility]. Discussed with her her mother's report that she has made multiple suicidal statements. Patient he did under her blanket several times during our conversation. Otherwise refused to speak with me, aside from nodding her head and confirming that she did tell her mom she was going to overdose. Patient denies any other symptoms aside from having been unresponsive earlier today. Patient is now medically cleared. [facility] protocol will be started. 09/19/19 01:14 Patient is now pacing in her room, told the nurse that she is having some hallucinations, clarifies that she is hearing some sounds and feeling somewhat shaky. Patient did not disclose any prior history of hallucinations, I think it is more prudent to treat the patient for early alcohol withdrawal with a milligram of Ativan and continue to observe rather than starting an antipsychotic at this time. 09/19/19 02:49 Patient is no sleeping, mildly tachycardic with heart rate of 102. Patient will continue to be monitored for further signs of alcohol withdrawal. - Vital Signs Vital signs: Temp Pulse Resp BP Pulse Ox 98.5 F 103 H 20 101/64 97 09/19/19 02:39 09/19/19 02:39 09/19/19 02:39 09/19/19 02:39 09/19/19 02:39 - Laboratory Result Diagrams: 09/18/19 16:18 09/18/19 16:18 Laboratory results interpreted by me: 09/18/19 09/18/1909/18/19 16:18 16:18 16:18 Hct 35.9 L RDW 14.3 H Lymph % (Auto) 49.3 H Potassium 3.3 L Salicylates < 1.0 L Acetaminophen < 10 L Discharge - Discharge Clinical Impression: Unresponsive episode, Substance abuse, Suicidal ideation Alcohol withdrawal Qualifiers: Complication of substance-induced condition: with perceptual disturbance Qualified Code(s): F10.232 - Alcohol dependence with withdrawal with perceptual disturbance Condition: Stable Disposition: PSYCH HOSP/UNIT
[2019-09-18 17:54] LABS: ALCOHOL 22 mg/dL (NONE DETECTED)
[2019-09-18 17:56] LABS: ACETAMINOPHEN < 10 ug/mL (10-30); SALICYLATE < 1.0 mg/dL (2.0-20.0)
--- NOTE | 2019-09-18 23:17 | EKG REPORT ---
SEVERITY:- BORDERLINE ECG - SINUS TACHYCARDIA BORDERLINE T ABNORMALITIES, ANT-LAT LEADS : Confirmed by: Maria E Khanna 18-Sep-2019 23:16:19
[2019-09-19] MEDS ORDERED: LORAZEPAM 1 MG TABLET PO ONE (01:13)
[2019-09-19 02:41] VITALS: BP 101/64
[2019-09-19 06:23] LABS: AMORPHOUS SEDIMENT,URINE TRACE /HPF; APPEARANCE,URINE CLOUDY; BILIRUBIN,URINE NEGATIVE (NEGATIVE); COLOR,URINE YELLOW; GLUCOSE, URINE 50 mg/dL (NEGATIVE); KETONES,URINE 80 mg/dL (NEGATIVE); LEUKOCYTE ESTERASE,URINE NEGATIVE (NEGATIVE); NITRITE,URINE NEGATIVE (NEGATIVE); PROTEIN,URINE NEGATIVE (NEGATIVE); URINE SPECIFIC GRAVITY 1.012; UROBILINOGEN,URINE NEGATIVE mg/dL (<2.0)
[2019-09-19 06:37] LABS: URINE AMPHETAMINES SCREEN NEGATIVE; URINE BARBITURATES SCREEN NEGATIVE; URINE BENZODIAZEPINES SCREEN NEGATIVE; URINE COCAINE SCREEN NEGATIVE; URINE MARIJUANA (THC) SCREEN NEGATIVE; URINE METHADONE SCREEN NEGATIVE; URINE PHENCYCLIDINE SCREEN NEGATIVE
[2019-09-19] MEDS ORDERED: LEVETIRACETAM 500 MG TABLET PO SCH (10:00)
[2019-09-19] MEDS ORDERED: HYDROXYZINE PAMOATE 50 MG CAPSULE PO ONE (11:09)
--- NOTE | 2019-09-19 11:14 | ER Document Report ---
Doctor's Note Notes: 09/19/19 11:13 As the rounding provider this AM, I assessed the patient's labs, vitals, and records. No concerning findings this morning. Patient denies any acute complaints other than anxiety and requesting medication for it. I will give her hydroxyzine 50 mg p.o. once.. Patient is cleared for disposition by psychiatry.
--- NOTE | 2019-09-19 13:38 | PSYCHOLOGICAL NOTE ---
Psych Note - Psych Note Date seen by psych provider: 09/19/19 Time seen by psych provider: 09:05 Psych Note: Reason for Consult: Suicidal ideation Patient arrives to ED by EMS transport. Patient unresponsive to verbal stimuli but responds to sternal rub. Patient will not answer whether she has taken any illegal substances [employer]. Patient was just in ER earlier today and discharged after refusing rehab or treatment and denying SI. Patient reports that she had been trying to talk to her mother in regards to staying at the home. She reports that she is unclear exactly what occurred but however does states she spoke with her mom and was told that she was found on t he front steps altered. She reports that her mother wants her to get help for her substance abuse but that "I do not agree." When asked what she does not agree about she states "I know I can do it on my own." Clinician had a serious conversation regards to the patient's repeat emergency room and emergency services interventions because of the patient's history of substance abuse. She reports she understands that she has not done well in regards to sobriety however she is not ready to do it yet. She continued to report that when she is interested she would "probably go outpatient" to [facility]. She reports that yesterday she was drinking bourbon. She confirms she spoke to her mother in regards to suicidal ideation however states that she did this in an attempt to agitate her mother for not allowing her to stay. Clinician notes patient's mother had previously reported to [facility] staff that the patient is unable to stay in the home if she is using alcohol or drugs". Patient declines request and getting mom to be part of the patient's plan of care however provided consent for clinician to speak freely with her mother. Patient is alert and orientated to person, place, time and circumstance. Mood is euthymic with congruent affect. Patient denies suicidal and homicidal ideation. Delusions are absent and behaviors congruent with an intact reality based presentation i.e. organized and linear thought process. Eye contact is well-maintained. Conversational speech is within normal rate, tone and prosody. Intellectual abilities appear to be within the average range. Attention and concentration are currently good. Insight, judgment, impulse control are historically poor due to patient's severe substance abuse. Chart review revealed previous ED visits going back to 2014 for SA/MH related issues: On 09/18/2019 and 06/25/2019 patient was seen for substance abuse. 05/17/2019 patient was seen for possible overdose and transferred to [facility] because she was in hepatorenal failure most likely due to overuse of Tylenol and alcohol. On 03/21/2019 patient was seen for altered mental status and was medically admitted. 02/23/19 she was seen for hallucinations (identified as alcohol withdrawal hallucinations, was referred to detox but no beds available and was provided resources to continue seeking detox), 11/05/18 she was seen for a possible OD, 08/03/15 possible SA, 07/13/15 status epilepticus/polysubstance abuse/SI, and 06/05/15 for acute intoxication/alcohol dependence/IVC (patient had a Serum alcohol level of 463, had argued with mother and expressed SI with plan to hang herself from the ceiling if possible, mother noted then a hx of Bipolar and ADHD with medication for mood as well as Strattera, had insomnia, epilepsy but no insurance so not taking Keppra, had been to [facility] and [facility] in the past, was involved with [facility] and AA, had a history of cocaine/meth use, current was alcohol/heroin, had Hx SIB via cutting 2 months prior, maternal family Hx of MDD/PTSD/Insomnia and paternal family history of Bipolar/Alcohol and Drug Use, she was held for a couple days and subsequently discharged to follow up with [facility]). Clinician and community param[facility]ics, Edwin, contacted patient's mother and a joint effort to communicate plan of care. [facility] is actively working on the patient's case. Patient's mother expresses multiple concerns in regards to the patient's discharge. She reports that the patient has a history of medical problems in addition to her mental health and substance abuse and repeatedly gets discharge from [facility] when she (the mother) feels she (the patient) needs further treatment. Clinician notes patient's mother reports that the patient was "pushed out the door" and she had to take the patient to [facility]. She continued to reports she was told by [facility] that if she had not gone to [facility] she would have because she was in renal failure. Chart review indicates the patient was not discharged, she was medically transferred to [facility] from ED to ED because of hepatorenal failure. Patient's mother clearly conveyed her distress in regards to her own physical health and being unable to further care for the patient. She is either unable or unwilling to engage in appropriate conversation with clinician in regards to the patient's plan of care, legal status is her own legal guardian, and the patient being able to self determine course of treatment. Diagnosis: Hx Polysubstance Use (Cocaine, Meth, Heroin, Alcohol, Cannabis) No medication recommendations at this time Impression\\plan: Patient is recommended for rescind of IVC and is cleared from acute psychiatric services. Patient does not meet IVC criteria per [place] GS 122C. Patient reports making suicidal comments to her mother and attempt to manipulate. Patient denies any thoughts of wanting to harm herself. Patient has a long history of severe substance abuse however she is on willing at this time to engage in services. Patient has been inpatient for psychiatric and substance abuse treatment on multiple occasions to include [facility] twice since they have opened just a few months ago, [facility], [facility], and [facility]. Patient has been unable/unwilling to maintain sobriety. Clinician highly encouraged the patient and provided psychoeducation's on the importance of sobriety; however, the patient reports that she will engage when she is ready. At this time the patient is encouraged to follow-up with substance abuse treatment of her choice and has been provided local resources which include both outpatient providers, detox facilities, and mobile crisis contact information. Dr. Silva was consulted to care management of this patient; attending physicians in agreement with recommendations and disposition.
== END 2019-09-19 15:00 | disposition home or self-care (01) ==
LOC: ER 16:13
DX: F10.232 Alcohol dependence with withdrawal with perceptual disturbance (principal); R41.82 Altered mental status, unspecified; R44.0 Auditory hallucinations; R45.851 Suicidal ideations; R00.0 Tachycardia, unspecified; F17.200 Nicotine dependence, unspecified, uncomplicated; G40.909 Epilepsy, unspecified, not intractable, without status epilepticus; Z79.899 Other long term (current) drug therapy; Z88.2 Allergy status to sulfonamides; Z88.5 Allergy status to narcotic agent
CPT/HCPCS: 93005; 36415; 80177; 80307 ×4; 84703; 85025; 80053; 81001; 93010; J2310; J7120

== ENCOUNTER 2019-09-19 20:54 | Emergency (ER) | payer SELFPAY ==
[2019-09-19] MEDS ORDERED: NORMAL SALINE 1000 ML 1,000 ML IV ONE (21:18)
[2019-09-19 21:19] LABS: ABSOLUTE BASOPHILS # (AUTO) 0.1 10^3/uL (0.0-0.2); ABSOLUTE LYMPHOCYTES (AUTO) 3.2 10^3/uL (0.5-4.7); ABSOLUTE MONOCYTES (AUTO) 0.4 10^3/uL (0.1-1.4); ABSOLUTE NEUT (AUTO) 5.8 10^3/uL (1.7-8.2); BASOPHILS % (AUTO) 0.7 % (0-2); EOSINOPHILS % (AUTO) 0.2 % (0-6); HEMATOCRIT 35.8 % (36.0-47.0); MEAN CORPUSCULAR HEMOGLOBIN 29.3 pg (27.0-33.4); MEAN CORPUSCULAR HGB CONC 33.6 g/dL (32.0-36.0); MEAN CORPUSCULAR VOLUME 87 fl (80-97); MONOCYTES % (AUTO) 4.2 % (3-13); PLATELET COUNT 337 10^3/uL (150-450); RED BLOOD COUNT 4.11 10^6/uL (3.72-5.28); RED CELL DISTRIBUTION WIDTH 14.5 % (11.5-14.0); SEGMENTED NEUTROPHILS % (AUTO) 60.9 % (42-78); TOTAL CELLS COUNTED % (AUTO) 100 %; WHITE BLOOD COUNT 9.5 10^3/uL (4.0-10.5)
[2019-09-19 21:37] LABS: ALBUMIN 3.5 g/dL (3.5-5.0); ALCOHOL 235 mg/dL (NONE DETECTED); ALKALINE PHOSPHATASE 64 U/L (38-126); ANION GAP 13 (5-19); ASPARTATE AMINO TRANSFERASE 25 U/L (14-36); BILIRUBIN,DIRECT 0.2 mg/dL (0.0-0.4); BILIRUBIN,TOTAL 0.4 mg/dL (0.2-1.3); BLOOD UREA NITROGEN 6 mg/dL (7-20); CALCIUM 8.7 mg/dL (8.4-10.2); CARBON DIOXIDE 20 mmol/L (22-30); CHLORIDE 112 mmol/L (98-107); GLUCOSE 150 mg/dL (75-110); TOTAL PROTEIN 6.8 g/dL (6.3-8.2)
[2019-09-19 21:39] LABS: ACETAMINOPHEN < 10 ug/mL (10-30); SALICYLATE < 1.0 mg/dL (2.0-20.0)
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
[2019-09-19 21:41] LABS: POTASSIUM 2.9 mmol/L (3.6-5.0)
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
[2019-09-19 21:57] LABS: APPEARANCE,URINE CLEAR; BILIRUBIN,URINE NEGATIVE (NEGATIVE); COLOR,URINE COLORLESS; GLUCOSE, URINE NEGATIVE (NEGATIVE); KETONES,URINE 20 mg/dL (NEGATIVE); LEUKOCYTE ESTERASE,URINE NEGATIVE (NEGATIVE); NITRITE,URINE NEGATIVE (NEGATIVE); PROTEIN,URINE NEGATIVE (NEGATIVE); URINE SPECIFIC GRAVITY 1.001; UROBILINOGEN,URINE NEGATIVE mg/dL (<2.0)
[2019-09-19 22:19] LABS: URINE AMPHETAMINES SCREEN NEGATIVE; URINE BARBITURATES SCREEN NEGATIVE; URINE BENZODIAZEPINES SCREEN NEGATIVE; URINE COCAINE SCREEN NEGATIVE; URINE MARIJUANA (THC) SCREEN NEGATIVE; URINE METHADONE SCREEN NEGATIVE; URINE PHENCYCLIDINE SCREEN NEGATIVE
[2019-09-19] MEDS: POTASSI CL 20 MEQ/1/2NS 1L 20 MEQ/1,000 ML RTUINJ IV PRN (23:29)
--- NOTE | 2019-09-20 00:05 | EKG REPORT ---
SEVERITY:- BORDERLINE ECG - SINUS RHYTHM BORDERLINE PROLONGED QT INTERVAL : Confirmed by: Becca Estrada MD 20-Sep-2019 00:04:45
[2019-09-20] MEDS ORDERED: ONDANSETRON HCL INJ/PF 4 MG/2 ML SDV IV ONE (01:41)
[2019-09-20] MEDS: POTASSI CL 20 MEQ/1/2NS 1L 20 MEQ/1,000 ML RTUINJ IV PRN (04:35)
[2019-09-20] MEDS ORDERED: DIAZEPAM INJ 10 MG/2 ML DISP.SYRIN IV ONE (10:24)
--- NOTE | 2019-09-20 10:52 | ER Document Report ---
Doctor's Note Notes: 09/20/19 10:45 33-year-old female with a medical history is positive and's abuse, seizure disorder, noncompliant with antiepileptics, alcohol abuse, presents to the ED for evaluation last night by EMS for AMS. Patient states her last drink was last night approximately 5 PM, she feels like she is going through a little bit of alcohol withdrawal. Her serum alcohol was 2.35. Patient is likely tachycardic with a heart rate of 135 and quality assurance monitor chassis. Denies any chest pain shortness of breath, nausea vomiting diarrhea, fever. Patient feels a little agitated she thinks she might be having some alcohol withdrawal. When asked if she typically has a baseline tachycardia, she states only when "I am withdrawing from alcohol". Patient's vital signs and previous labs, diagnostic images reviewed. Reviewed mental health notes, nurse's notes and previous providers notes. VSS. Pt is in no distress at this time. Denies any SI or HI. General: A&Ox3. Answers questions appropriately. Heart: RRR Lungs: CTAB Psych: Flat affect A/P: Continue monitoring and rec's per MH. Normal diet Patient given 10 mg of Valium IVP for her alcohol withdrawal symptoms.will recheck potassium as it was 2.9 last night. will continue to monitor Consider placement. 09/20/19 10:48 09/20/19 10:52
[2019-09-20 12:09] LABS: ANION GAP 6 (5-19); BLOOD UREA NITROGEN 5 mg/dL (7-20); CALCIUM 8.1 mg/dL (8.4-10.2); CARBON DIOXIDE 24 mmol/L (22-30); CHLORIDE 107 mmol/L (98-107); GLUCOSE 90 mg/dL (75-110); POTASSIUM 3.8 mmol/L (3.6-5.0)
[2019-09-20 12:11] LABS: ALCOHOL < 10 mg/dL (NONE DETECTED)
--- NOTE | 2019-09-20 12:53 | ER Document Report ---
Doctor's Note Notes: 09/20/19 12:53 Repeat potassium within normal range and serum alcohol is well below the limits. Patient does meet criteria for discharge along with consultation from mental health and approval from supervising physician
--- NOTE | 2019-09-20 14:04 | ER Document Report ---
Doctor's Note Notes: 09/20/19 14:04 Patient is currently exhibiting no signs of alcohol withdrawal. Oriented x4. She denies any suicidal homicidal ideations. She understands the importance of discontinuing any alcohol or drug abuse. Patient has been seen by behavioral health team who does not believe that the patient meets IVC criteria. Patient will be discharged home with strict return precautions and follow-up.
[2019-09-20 14:18] VITALS: BP 121/81
== END 2019-09-20 14:25 | disposition home or self-care (01) ==
LOC: ER 20:54
DX: F10.10 Alcohol abuse, uncomplicated (principal); R41.82 Altered mental status, unspecified; F19.10 Other psychoactive substance abuse, uncomplicated; G40.909 Epilepsy, unspecified, not intractable, without status epilepticus; Z91.14 Patient's other noncompliance with medication regimen
CPT/HCPCS: 93005; 99285; 96361; 96375; 96365; 96366; 36415; 80307 ×4; 84703; 85025; 80048; 80053; 81001; 70450; 93010; J3360; J3480 ×2; J2405; J7030

== ENCOUNTER 2019-09-21 20:14 | Emergency (ER) | payer SELFPAY ==
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
[2019-09-21] MEDS: NORMAL SALINE 1000 ML 1,000 ML IV PRN ×2 (21:10→22:40)
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
[2019-09-21 21:21] LABS: ABSOLUTE BASOPHILS # (AUTO) 0.1 10^3/uL (0.0-0.2); ABSOLUTE LYMPHOCYTES (AUTO) 3.3 10^3/uL (0.5-4.7); ABSOLUTE MONOCYTES (AUTO) 0.3 10^3/uL (0.1-1.4); ABSOLUTE NEUT (AUTO) 2.9 10^3/uL (1.7-8.2); BASOPHILS % (AUTO) 1.3 % (0-2); EOSINOPHILS % (AUTO) 0.6 % (0-6); HEMATOCRIT 37.4 % (36.0-47.0); HEMOGLOBIN 12.7 g/dL (12.0-15.5); LYMPHOCYTES % (AUTO) 49.7 % (13-45); MEAN CORPUSCULAR HEMOGLOBIN 29.5 pg (27.0-33.4); MEAN CORPUSCULAR HGB CONC 33.9 g/dL (32.0-36.0); MEAN CORPUSCULAR VOLUME 87 fl (80-97); MONOCYTES % (AUTO) 4.7 % (3-13); PLATELET COUNT 348 10^3/uL (150-450); RED CELL DISTRIBUTION WIDTH 14.6 % (11.5-14.0); SEGMENTED NEUTROPHILS % (AUTO) 43.7 % (42-78); TOTAL CELLS COUNTED % (AUTO) 100 %; WHITE BLOOD COUNT 6.7 10^3/uL (4.0-10.5)
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
[2019-09-21 22:15] LABS: ALBUMIN 4.1 g/dL (3.5-5.0); ALKALINE PHOSPHATASE 72 U/L (38-126); ANION GAP 15 (5-19); ASPARTATE AMINO TRANSFERASE 35 U/L (14-36); BILIRUBIN,DIRECT 0.2 mg/dL (0.0-0.4); BILIRUBIN,TOTAL 0.5 mg/dL (0.2-1.3); BLOOD UREA NITROGEN 6 mg/dL (7-20); CALCIUM 9.3 mg/dL (8.4-10.2); CARBON DIOXIDE 21 mmol/L (22-30); CHLORIDE 113 mmol/L (98-107); GLUCOSE 98 mg/dL (75-110); POTASSIUM 3.2 mmol/L (3.6-5.0); TOTAL PROTEIN 7.8 g/dL (6.3-8.2)
[2019-09-21 22:25] LABS: ALCOHOL 368 mg/dL (NONE DETECTED)
--- NOTE | 2019-09-21 23:30 | EKG REPORT ---
SEVERITY:- ABNORMAL ECG - SINUS RHYTHM PROLONGED QT INTERVAL : Confirmed by: Becca Estrada MD 21-Sep-2019 23:29:30
[2019-09-22 00:41] LABS: APPEARANCE,URINE CLEAR; BILIRUBIN,URINE NEGATIVE (NEGATIVE); COLOR,URINE STRAW; GLUCOSE, URINE NEGATIVE (NEGATIVE); KETONES,URINE TRACE mg/dL (NEGATIVE); PROTEIN,URINE NEGATIVE (NEGATIVE); URINE SPECIFIC GRAVITY 1.003; UROBILINOGEN,URINE NEGATIVE mg/dL (<2.0)
[2019-09-22 01:07] LABS: URINE AMPHETAMINES SCREEN NEGATIVE; URINE BARBITURATES SCREEN NEGATIVE; URINE BENZODIAZEPINES SCREEN UNCONFIRMED POSITIVE; URINE COCAINE SCREEN NEGATIVE; URINE MARIJUANA (THC) SCREEN NEGATIVE; URINE METHADONE SCREEN NEGATIVE; URINE PHENCYCLIDINE SCREEN NEGATIVE
[2019-09-22] MEDS ORDERED: NORMAL SALINE 1000 ML 1,000 ML IV ONE (11:08)
--- NOTE | 2019-09-22 11:18 | ER Document Report ---
Doctor's Note Notes: 09/22/19 11:15 This MD was asked to reassess the patient and determine whether or not the patient is ready to be discharged from the emergency department. The patient is able to state where she is, but is still somewhat unsteady on her feet. This MD informed the patient's nurse that the patient would have to be discharged in the care of someone willing to contract for safety. Patient's heart rate is 113; liter of normal saline was ordered by this MD.
--- NOTE | 2019-09-22 15:57 | ER Document Report ---
Doctor's Note Notes: 09/22/19 15:55 Patient reassessed by this MD. Patient educated about the risks of persistent alcohol misuse as well as mixing benzodiazepines with alcohol. Patient states she understands risks.
[2019-09-22 16:15] VITALS: BP 89/62
== END 2019-09-22 14:25 | disposition home or self-care (01) ==
LOC: ER 20:14
DX: S09.90XA Unspecified injury of head, initial encounter (principal); F10.920 Alcohol use, unspecified with intoxication, uncomplicated; Y04.8XXA Assault by other bodily force, initial encounter
CPT/HCPCS: 93005; 36415; 80307 ×2; 83690; 85025; 81025; 80053; 81001; 71045; 70450; 72125; 93010; J7030 ×2

== ENCOUNTER 2020-04-14 16:22 | Emergency (ER) | payer SELFPAY ==
[2020-04-14 16:46] VITALS: BP 127/74
[2020-04-14] MEDS ORDERED: DIPH/PERTUSS(ACELL)/TETANUS VAC/PF 0.5 ML SYR (>=10YO) IM ONE (16:48)
[2020-04-14] MEDS ORDERED: HALOPERIDOL LACTATE INJ 5 MG/1 ML VIAL IV ONE (16:51)
[2020-04-14] MEDS ORDERED: LORAZEPAM INJ 2 MG/1 ML VIAL IV ONE (16:52)
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
== END 2020-04-14 17:00 | disposition left against medical advice (07) ==
LOC: ER 16:22
DX: S09.90XA Unspecified injury of head, initial encounter (principal); R41.82 Altered mental status, unspecified; Y04.8XXA Assault by other bodily force, initial encounter; F17.200 Nicotine dependence, unspecified, uncomplicated
CPT/HCPCS: 99281

== ENCOUNTER 2020-08-06 00:30 | Emergency (ER) | payer SELFPAY ==
[2020-08-06 01:21] LABS: ALBUMIN 4.6 g/dL (3.5-5.0); ALKALINE PHOSPHATASE 89 U/L (38-126); ANION GAP 12 (5-19); ASPARTATE AMINO TRANSFERASE 42 U/L (14-36); BILIRUBIN,DIRECT 0.4 mg/dL (0.0-0.4); BILIRUBIN,TOTAL 0.5 mg/dL (0.2-1.3); BLOOD UREA NITROGEN 20 mg/dL (7-20); CALCIUM 8.5 mg/dL (8.4-10.2); CARBON DIOXIDE 31 mmol/L (22-30); CHLORIDE 96 mmol/L (98-107); GLUCOSE 148 mg/dL (75-110); POTASSIUM 3.3 mmol/L (3.6-5.0); TOTAL PROTEIN 8.5 g/dL (6.3-8.2)
[2020-08-06 01:22] LABS: ALCOHOL < 10 mg/dL (NONE DETECTED)
[2020-08-06 01:23] LABS: ABSOLUTE LYMPHOCYTES (AUTO) 1.9 10^3/uL (0.5-4.7); ABSOLUTE MONOCYTES (AUTO) 0.4 10^3/uL (0.1-1.4); ABSOLUTE NEUT (AUTO) 7.1 10^3/uL (1.7-8.2); BASOPHILS % (AUTO) 0.4 % (0-2); EOSINOPHILS % (AUTO) 0.2 % (0-6); HEMATOCRIT 38.8 % (36.0-47.0); HEMOGLOBIN 13.7 g/dL (12.0-15.5); LYMPHOCYTES % (AUTO) 19.7 % (13-45); MEAN CORPUSCULAR HEMOGLOBIN 28.9 pg (27.0-33.4); MEAN CORPUSCULAR HGB CONC 35.2 g/dL (32.0-36.0); MEAN CORPUSCULAR VOLUME 82 fl (80-97); MONOCYTES % (AUTO) 4.7 % (3-13); PLATELET COUNT 240 10^3/uL (150-450); RED BLOOD COUNT 4.73 10^6/uL (3.72-5.28); RED CELL DISTRIBUTION WIDTH 18.1 % (11.5-14.0); TOTAL CELLS COUNTED % (AUTO) 100 %; WHITE BLOOD COUNT 9.4 10^3/uL (4.0-10.5)
[2020-08-06] MEDS ORDERED: NORMAL SALINE 1000 ML 1,000 ML IV ONE (01:50)
[2020-08-06] MEDS ORDERED: KETOROLAC TROMETHAMINE INJ/PF 30 MG/1 ML SDV IV ONE (01:51)
--- NOTE | 2020-08-06 01:58 | ER Document Report ---
ED General - General Chief Complaint: Accidental Overdose Stated Complaint: POSS OVERDOSE Time Seen by Provider: 08/06/20 01:34 TRAVEL OUTSIDE OF THE [place] IN LAST 30 DAYS: No - HPI Context: 34-year-old female presents to the emergency department via EMS after reportedly accidentally overdosing on heroin. EMS reported that the patient's initial vital signs include a blood pressure of 99/64 with pulse of 107 respirations of 15 oxygenation of 99's percent on room air and a temp of 99.3 however the gerardo ent was unresponsive. Patient was given 4 mg of Narcan nasally by EMS and the patient responded positively to this going from being unresponsive to sitting up in the bed speaking in clear and complete sentences. Patient admits that she has a history of drug abuse. Patient states that she usually uses opiates but found a "stand baggy" in 1 of her old book bags. Patient states that she thought she was taking heroin but think she actually ended up taking fentanyl. Patient currently is alert and oriented x3. Patient denies suicidal ideation or homicidal ideation. Patient denies headache visual changes loss of sense of taste or sense of smell, cough, shortness of breath, chest pain, abdominal pain, nausea, vomiting. Patient denies history of positive COVID infection and also denies knowingly having come into close contact with COVID positive persons or persons under investigation for COVID. Patient states she did not think she took an eye large amount of the drugs that she used which leads her to think it was actually fentanyl instead of heroin. Other than Narcan patient denies alleviating symptoms. Patient denies aggravating symptoms. Associated symptoms: Other - See HPI Exacerbated by: Other - See HPI Relieved by: Other - See HPI - Related Data Allergies/Adverse Reactions: Sulfa (Sulfonamide Antibiotics) Allergy (Verified 08/21/19 15:39) tramadol [Tramadol] Allergy (Verified 08/21/19 15:39) Seizures Past Medical History - General Information source: Patient, Emergency Med Personnel - Social History Smoking Status: Current Every Day Smoker Frequency of alcohol use: Occasional Drug Abuse: Heroin Family History: Arthritis, CAD, COPD, CVA, DM, Hyperlipidemia, Hypertension Patient has suicidal ideation: No Patient has homicidal ideation: No Neurological Medical History: Reports: Hx Seizures - non-compliant with antiepileptic medication Renal/ Medical History: Denies: Hx Peritoneal Dialysis Psychiatric Medical History: Reports: Hx Anxiety, Hx Attention Deficit Hyperactivity Disorder, Hx Bipolar Disorder, Hx Depression - with anxiety, PTSD Past Surgical History: Reports: Hx Abdominal Surgery, Hx Orthopedic Surgery - Immunizations Immunizations up to date: No Hx Diphtheria, Pertussis, Tetanus Vaccination: No Review of Systems - Review of Systems Constitutional: No symptoms reported EENT: No symptoms reported Cardiovascular: No symptoms reported Respiratory: No symptoms reported Gastrointestinal: No symptoms reported Genitourinary: No symptoms reported Female Genitourinary: No symptoms reported Musculoskeletal: No symptoms reported Skin: No symptoms reported Hematologic/Lymphatic: No symptoms reported Neurological/Psychological: Other - Altered mental status -: Yes All other systems reviewed and negative Physical Exam - Vital signs Vitals: Temp 99.0 F 08/06/20 00:31 - Notes Notes: CONSTITUTIONAL [Vital signs reviewed, Patient appears comfortable, Alert and oriented X 3, Normal stature.] HEAD [Atraumatic, Normocephalic.] EYES [Pupils are pinpoint bilaterally, No discharge from eyes, Extraocular muscles intact, Sclera are normal, Conjunctiva are normal.] ENT There is no evidence of oropharyngeal trauma. Patient is managing secretions.] NECK [Normal ROM, No jugular venous distention, No meningeal signs, no carotid bruit.] RESPIRATORY CHEST [Chest is nontender, Breath sounds normal, No respiratory distress.] CARDIOVASCULAR [Tachycardia, No murmurs, Normal S1 S2, No rub, No gallop.] ABDOMEN [Abdomen is nontender, No pulsatile masses, No other masses, Bowel sounds normal, No distension, No peritoneal signs, No hernias.] BACK [There is no CVA Tenderness, There is no tenderness to palpation, Normal inspection.] UPPER EXTREMITY [Inspection normal, No cyanosis, No clubbing, No edema, 2+ radial pulses.] LOWER EXTREMITY [Inspection normal, No cyanosis, No clubbing, No edema, No calf tenderness, 2+ femoral pulses.] NEURO [No focal motor deficits, No focal sensory deficits, Speech normal.] SKIN [Skin is warm, Skin is dry, Skin is normal color.] LYMPHATIC [No adenopathy in neck.] PSYCHIATRIC [Normal affect. ] Course - Re-evaluation Re-evalutation: 08/06/20 05:16 Results of ED MSE discussed with patient. All questions were answered prior to discharge. Patient is requesting a short course of Klonopin that she can take to help her stay off opiate medication and avoid severe withdrawal symptoms. Patient states that she is been prescribed Klonopin 0.5 mg in the past with good results. This MD told the patient that I would write for 9 tablets of 0.5 mg Klonopin. This MD also counseled her on the proper use of the medication. Emergency signs and symptoms, reasons to return to the emergency department discussed with patient. - Vital Signs Vital signs: Temp Pulse Resp BP Pulse Ox 99.0 F 08/06/20 00:31 - Laboratory Result Diagrams: 08/06/20 00:42 08/06/20 00:42 Laboratory results interpreted by me: 08/06/20 08/06/20 08/06/20 00:05 00:42 00:42 RDW 18.1 H Potassium 3.3 L Chloride 96 L Carbon Dioxide 31 H Glucose 148 H AST 42 H ALT 48 H Total Protein 8.5 H Urine Protein 100 H Urine Blood SMALL H Discharge - Discharge Clinical Impression: Accidental drug overdose Qualifiers: Encounter type: initial encounter Qualified Code(s): T50.901A - Poisoning by unspecified drugs, medicaments and biological substances, accidental (unintentio nal), initial encounter Condition: Stable Disposition: HOME, SELF-CARE Additional Instructions: Return to the Emergency Department without delay if any worse. HOME CARE INSTRUCTIONS & INFORMATION: Thank you for choosing us for your medical needs. We hope you're satisfied with the care you received. After you leave, you must properly care for your problem and, at the same time, observe its progress. Any condition can change. Some illnesses can change rapidly over hours or days. If your condition worsens, return to the Emergency Department or see your physician promptly. ABOUT YOUR X-RAYS AND EKG'S: If you had an EKG or X-rays taken, they have been read by the Emergency Physician. The X-rays and EKG's will also be read by a Radiologist or Casino Dealer within 24 hours. If discrepancies are noted, you wi ll be notified by telephone. Please be certain the ED has a correct telephone number & address where you can be reached. Also, realize that some fractures or abnormalities do not show up on initial X-rays. If your symptoms continue, see your physician. ABOUT YOUR LABORATORY TEST: If you had laboratory tests, the results have been reviewed by the Emergency Physician. Some test results (for example cultures) may not be available for several days. You will be contacted if any test result shows you need additional treatment. Please be certain the ED has a correct telephone number and address where you can be reached. ABOUT YOUR MEDICATIONS: You will receive instructions on how to take your medicine on the prescription label you receive. Additional information may be provided by the Pharmacy. If you have questions afterwards, call the ED for clarification or further instructions. Some prescribed medications may cause drowsiness. Do not perform tasks such as driving a car or operating machinery without consulting your Pharmacist. If you feel you need a refill of pain medication, your condition will need re-evaluation. Please do not call for a refill of any medication. ABOUT YOUR SIGNATURE: Signature of this document acknowledges to followin. Understanding that you received emergency treatment and that you may be released before al medical problems are known or treated. Please be certain the ED has a correct phone number & address where you can be reached. 2. Acknowledgement that you will arrange for follow-up care as recommended. 3. Authorization for the Emergency Physician to provide information to your follow-up Physician in order to maximize your care. AT ANY TIME, IF YOUR SYMPTOMS CHANGE SIGNIFICANTLY OR WORSEN OR YOU DEVELOP NEW SYMPTOMS, RETURN TO THE EMERGENCY DEPARTMENT IMMEDIATELY FOR RE-EVALUATION. OUR GOAL IS TO PROVIDE EXCELLENT MEDICAL CARE! WE HOPE THAT WE HAVE MET YOUR EXPECTATIONS DURING YOUR EMERGENCY DEPARTMENT VISIT AND THAT YOU FEEL YOU HAVE RECEIVED EXCELLENT CARE! Prescriptions: Clonazepam [Klonopin] 0.5 mg PO Q8HP PRN #9 tablet PRN Reason: opioid withdrawal symptoms Referrals: KYLE MORALES MD [HONORARY] - Follow up as needed
[2020-08-06 02:09] LABS: APPEARANCE,URINE CLEAR; BILIRUBIN,URINE NEGATIVE (NEGATIVE); COLOR,URINE YELLOW; GLUCOSE, URINE NEGATIVE (NEGATIVE); KETONES,URINE NEGATIVE (NEGATIVE); LEUKOCYTE ESTERASE,URINE NEGATIVE (NEGATIVE); NITRITE,URINE NEGATIVE (NEGATIVE); PROTEIN,URINE 100 mg/dL (NEGATIVE); UROBILINOGEN,URINE NEGATIVE mg/dL (<2.0)
[2020-08-06 02:16] LABS: URINE AMPHETAMINES SCREEN NEGATIVE; URINE BARBITURATES SCREEN NEGATIVE; URINE COCAINE SCREEN NEGATIVE; URINE MARIJUANA (THC) SCREEN NEGATIVE; URINE METHADONE SCREEN NEGATIVE; URINE PHENCYCLIDINE SCREEN NEGATIVE
[2020-08-06 02:17] LABS: URINE BENZODIAZEPINES SCREEN UNCONFIRMED POSITIVE
[2020-08-06 05:35] VITALS: BP 95/58
== END 2020-08-06 04:35 | disposition home or self-care (01) ==
LOC: ER 00:30
DX: T40.1X1A Poisoning by heroin, accidental (unintentional), initial encounter (principal); R41.82 Altered mental status, unspecified; F17.200 Nicotine dependence, unspecified, uncomplicated; Z88.2 Allergy status to sulfonamides; Z88.6 Allergy status to analgesic agent
CPT/HCPCS: 99284; 96361; 96374; 36415; 80307 ×2; 84703; 85025; 80053; 81001; J1885; J7030